=== PATIENT | female | born 1940 | race Caucasian/White ===

== ENCOUNTER → 2019-09-20 10:25 | Outpatient (BNVA) | payer MEDICARE, OTHER, SELFPAY | PROVIDERS: Family Provider Nurse Practitioner Family; PCP Nurse Practitioner Family; Visit Provider Family Medicine | DX: E11.9 Type 2 diabetes mellitus without complications (principal); E78.2 Mixed hyperlipidemia; I48.91 Unspecified atrial fibrillation; I48.20 Chronic atrial fibrillation, unspecified; E55.9 Vitamin D deficiency, unspecified; M81.0 Age-related osteoporosis without current pathological fracture; I10 Essential (primary) hypertension | CPT/HCPCS: 80053; 80061; 82044; 82306; 83036; 84443; 85025; 85610 ==

== ENCOUNTER → 2019-09-27 10:45 | Outpatient (BNVA) | payer MEDICARE, OTHER, SELFPAY | PROVIDERS: Family Provider Nurse Practitioner Family; PCP Nurse Practitioner Family; Visit Provider Nurse Practitioner Family | DX: I48.91 Unspecified atrial fibrillation (principal) | CPT/HCPCS: 85610 ==

== ENCOUNTER → 2019-10-12 10:30 | Outpatient (BNVA) | payer MEDICARE, OTHER, SELFPAY | PROVIDERS: PCP Family Medicine; Visit Provider Family Medicine | DX: I48.91 Unspecified atrial fibrillation (principal) | CPT/HCPCS: 85610 ==

== ENCOUNTER → 2019-11-17 10:27 | Outpatient (BNVA) | payer MEDICARE, OTHER, SELFPAY | PROVIDERS: Family Provider Nurse Practitioner Family; PCP Family Medicine; Visit Provider Internal Medicine Cardiovascular Disease | DX: I42.8 Other cardiomyopathies (principal); R06.02 Shortness of breath | CPT/HCPCS: 80048 ==

== ENCOUNTER → 2019-11-26 13:25 | Outpatient (BNVA) | payer MEDICARE, OTHER, SELFPAY | PROVIDERS: PCP Family Medicine; Visit Provider Family Medicine | DX: I48.91 Unspecified atrial fibrillation (principal) | CPT/HCPCS: 85610 ==

== ENCOUNTER → 2020-01-03 11:28 | Outpatient (BNVA) | payer MEDICARE, OTHER, SELFPAY | PROVIDERS: PCP Family Medicine; Visit Provider Family Medicine | DX: I48.91 Unspecified atrial fibrillation (principal) | CPT/HCPCS: 85610 ==

== ENCOUNTER → 2020-02-02 14:54 | Outpatient (BNVA) | payer MEDICARE, OTHER, SELFPAY | PROVIDERS: PCP Family Medicine; Visit Provider Family Medicine | DX: I48.11 Longstanding persistent atrial fibrillation (principal) | CPT/HCPCS: 85610 ==

== ENCOUNTER → 2020-03-01 10:14 | Outpatient (BNVA) | payer MEDICARE, OTHER, SELFPAY | PROVIDERS: PCP Family Medicine; Visit Provider Family Medicine | DX: E78.2 Mixed hyperlipidemia (principal); E11.9 Type 2 diabetes mellitus without complications; I48.11 Longstanding persistent atrial fibrillation; I10 Essential (primary) hypertension; E55.9 Vitamin D deficiency, unspecified | CPT/HCPCS: 80053; 80061; 82306; 83036; 84443; 85025; 85610 ==

== ENCOUNTER → 2020-04-05 14:12 | Outpatient (BNVA) | payer MEDICARE, OTHER, SELFPAY | PROVIDERS: PCP Family Medicine; Visit Provider Family Medicine | DX: I48.11 Longstanding persistent atrial fibrillation (principal) | CPT/HCPCS: 85610 ==

== ENCOUNTER → 2020-04-17 14:22 | Outpatient (BNVA) | payer MEDICARE, OTHER, SELFPAY | PROVIDERS: PCP Family Medicine; Visit Provider Family Medicine | DX: I48.11 Longstanding persistent atrial fibrillation (principal) | CPT/HCPCS: 85610 ==

== ENCOUNTER → 2020-05-31 15:01 | Outpatient (BNVA) | payer MEDICARE, OTHER, SELFPAY | PROVIDERS: PCP Family Medicine; Visit Provider Family Medicine | DX: I48.11 Longstanding persistent atrial fibrillation (principal) | CPT/HCPCS: 85610 ==

== ENCOUNTER → 2020-06-15 10:53 | Outpatient (BNVA) | payer MEDICARE, OTHER, SELFPAY | PROVIDERS: PCP Family Medicine; Visit Provider Internal Medicine Cardiovascular Disease | DX: I42.8 Other cardiomyopathies (principal); R06.02 Shortness of breath; I42.9 Cardiomyopathy, unspecified; I50.33 Acute on chronic diastolic (congestive) heart failure; I50.9 Heart failure, unspecified; I48.11 Longstanding persistent atrial fibrillation | CPT/HCPCS: 80048; 83880 ==

== ENCOUNTER → 2020-06-28 14:04 | Outpatient (BNVA) | payer MEDICARE, OTHER, SELFPAY | PROVIDERS: PCP Family Medicine; Visit Provider Family Medicine | DX: I48.11 Longstanding persistent atrial fibrillation (principal) | CPT/HCPCS: 85610 ==

== ENCOUNTER 2020-07-06 07:45 | Outpatient (CLI) | payer MEDICARE, OTHER, SELFPAY ==
--- NOTE | 2020-07-06 08:00 | USCV_ITS ---
Georgina Hunt Age: 79 Gender: F : 1940 Exam Date: 07/06/2020 07:44 Ordering Phys: Donald Hall MD ([email or web address]) Technologist: Hina Queen Exam Location: [facility] [place] Indication: CHF BP: 114 / 57 HR: 69 Rhythm: Sinus Technical Quality: Adequate MEASUREMENTS (Male / Female) Normal Values 2D ECHO LV Diastolic Diameter PLAX 3.9 cm 4.2 - 5.9 / 3.9 - 5.3 cm LV Systolic Diameter PLAX 3.2 cm LV Chamber Size 3.1 cm IVS Diastolic Thickness 1.2 cm 0.6 - 1.0 / 0.6 - 0.9 cm IVS Systolic Thickness 1.3 cm LVPW Diastolic Thickness 1.6 cm 0.6 - 1.0 / 0.6 - 0.9 cm LVPW Systolic Thickness 0.9 cm RV Chamber Size 3.1 cm LVOT Diameter 2.0 cm LV Ejection Fraction 2D Teich 40.5 % LV Ejection Fraction MOD 2C 33.6 % LV Ejection Fraction 2C AL 35.1 % LA Diameter 4.0 cm LA Width 4.4 cm LA Height 4.9 cm RA Width 3.4 cm RA Height 4.3 cm Aorta at Sinotubular Diameter 2.8 cm M-MODE LV Diastolic Diameter MM 4.9 cm 4.2 - 5.9 / 3.9 - 5.3 cm LV Systolic Diameter MM 2.4 cm LV Ejection Fraction MM Teich 81.7 % IVS Diastolic Thickness MM 1.2 cm 0.6 - 1.0 / 0.6 - 0.9 cm IVS Systolic Thickness MM 1.4 cm LVPW Diastolic Thickness MM 1.2 cm 0.6 - 1.0 / 0.6 - 0.9 cm LVPW Systolic Thickness MM 1.6 cm Aortic Annulus Diameter 2.8 cm LA Ao Ratio MM 1.6 MV E Point Septal Separation 0.7 cm DOPPLER AV Peak Velocity 146.0 cm/s LVOT Peak Velocity 108.0 cm/s AV Area Cont Eq vti 2.3 cm squared AV Area Cont Eq pk 2.3 cm squared MV Area PHT 2.4 cm squared Mitral E to A Ratio 0.6 MV E' Velocity 42.5 cm/s Mitral E to MV E' Ratio 5.2 Mitral E to LV E' Lateral Ratio 4.7 Mitral E to LV E' Septal Ratio 5.8 TR Peak Velocity 170.5 cm/s TR Peak Gradient 11.6 mmHg TV Peak E Velocity 69.0 cm/s Right Atrial Pressure 3.0 mmHg Pulmonary Artery Systolic Pressu 14.6 mmHg PV Peak Velocity 119.0 cm/s RV Acceleration Time 0.1 s RV Ejection Time 0.4 s RV AcT/ET 0.4 FINDINGS Left Ventricle Normal left ventricular size and systolic function, EF60 %. No regional wall motion abnormalities. Grade I/IV diastolic dysfunction (abnormal relaxation filling pattern), normal to mildly elevated filling pressures. Right Ventricle The right ventricle is normal in size and function. Right Atrium And well visualized Left Atrium Mildly increased left atrial size. Mitral Valve Mild mitral valve regurgitation. Aortic Valve Thickened aortic valve. Tricuspid Valve Trace tricuspid valve regurgitation. Pulmonic Valve Not well visualized Pericardium Normal pericardium without effusion. Aorta Normal ascending aorta dimension. CONCLUSIONS Normal left ventricular size and systolic function, EF60 %. No regional wall motion abnormalities. Grade I/IV diastolic dysfunction (abnormal relaxation filling pattern), normal to mildly elevated filling pressures. Mildly increased left atrial size. Thickened aortic valve. Mild mitral valve regurgitation. Trace tricuspid valve regurgitation. Estimated pulmonary artery peak systolic pressure of 15 mmHg there is no pericardial effusion. There are no intracardiac masses. Compared to the previous study from 04/06/2018, there is significant improvement of the LV ejection fraction Dr Donald Hall MD [facility] (Electronically Signed) Final Date: 06 July 2020 21:07 S
== END 2020-07-06 07:46 | disposition home or self-care (01) ==
LOC: US 07:46
PROVIDERS: PCP Family Medicine; Visit Provider Internal Medicine Cardiovascular Disease
DX: R06.02 Shortness of breath (principal); I50.9 Heart failure, unspecified; I08.3 Combined rheumatic disorders of mitral, aortic and tricuspid valves
CPT/HCPCS: 93306

== ENCOUNTER → 2020-07-24 15:07 | Outpatient (BNVA) | payer MEDICARE, OTHER, SELFPAY | PROVIDERS: PCP Family Medicine; Visit Provider Family Medicine | DX: I48.11 Longstanding persistent atrial fibrillation (principal) | CPT/HCPCS: 85610 ==

== ENCOUNTER → 2020-08-09 13:46 | Outpatient (BNVA) | payer MEDICARE, OTHER, SELFPAY | PROVIDERS: PCP Family Medicine; Visit Provider Family Medicine | DX: I48.11 Longstanding persistent atrial fibrillation (principal) | CPT/HCPCS: 85610 ==

== ENCOUNTER → 2020-08-17 09:54 | Outpatient (BNVA) | payer MEDICARE, OTHER, SELFPAY | PROVIDERS: PCP Family Medicine; Visit Provider Family Medicine | DX: I10 Essential (primary) hypertension (principal); E11.9 Type 2 diabetes mellitus without complications; Z79.84 Long term (current) use of oral hypoglycemic drugs; I48.11 Longstanding persistent atrial fibrillation; E55.9 Vitamin D deficiency, unspecified | CPT/HCPCS: 80053; 80061; 82306; 83036; 83721; 84443; 85025; 85610 ==

== ENCOUNTER → 2020-08-28 10:23 | Outpatient (BNVA) | payer MEDICARE, OTHER, SELFPAY | PROVIDERS: PCP Family Medicine; Visit Provider Family Medicine | DX: I48.11 Longstanding persistent atrial fibrillation (principal) | CPT/HCPCS: 85610 ==

== ENCOUNTER → 2020-09-05 10:33 | Outpatient (BNVA) | payer MEDICARE, OTHER, SELFPAY | PROVIDERS: PCP Family Medicine; Visit Provider Family Medicine | DX: I48.11 Longstanding persistent atrial fibrillation (principal) | CPT/HCPCS: 85610 ==

== ENCOUNTER → 2020-10-06 10:19 | Outpatient (BNVA) | payer MEDICARE, OTHER, SELFPAY | PROVIDERS: PCP Family Medicine; Visit Provider Family Medicine | DX: I48.11 Longstanding persistent atrial fibrillation (principal) | CPT/HCPCS: 85610 ==

== ENCOUNTER → 2020-10-30 11:44 | Outpatient (BNVA) | payer MEDICARE, OTHER, SELFPAY | PROVIDERS: PCP Family Medicine; Visit Provider Family Medicine | DX: I48.11 Longstanding persistent atrial fibrillation (principal) | CPT/HCPCS: 85610 ==

== ENCOUNTER → 2020-11-01 16:45 | Outpatient (BNVA) | payer MEDICARE, OTHER, SELFPAY | PROVIDERS: PCP Family Medicine; Visit Provider Family Medicine | DX: I48.11 Longstanding persistent atrial fibrillation (principal) | CPT/HCPCS: 85610 ==

== ENCOUNTER → 2020-11-08 10:15 | Outpatient (BNVA) | payer MEDICARE, OTHER, SELFPAY | PROVIDERS: PCP Family Medicine; Visit Provider Family Medicine | DX: I48.11 Longstanding persistent atrial fibrillation (principal) | CPT/HCPCS: 85610 ==

== ENCOUNTER → 2020-11-15 15:24 | Outpatient (BNVA) | payer MEDICARE, OTHER, SELFPAY | PROVIDERS: PCP Family Medicine; Visit Provider Family Medicine | DX: I48.11 Longstanding persistent atrial fibrillation (principal) | CPT/HCPCS: 85610 ==

== ENCOUNTER → 2020-11-27 09:23 | Outpatient (BNVA) | payer MEDICARE, OTHER, SELFPAY | PROVIDERS: PCP Family Medicine; Visit Provider Family Medicine | DX: Z79.84 Long term (current) use of oral hypoglycemic drugs (principal); I48.11 Longstanding persistent atrial fibrillation; E78.5 Hyperlipidemia, unspecified; I10 Essential (primary) hypertension; E11.9 Type 2 diabetes mellitus without complications; E55.9 Vitamin D deficiency, unspecified | CPT/HCPCS: 80053; 80061; 82306; 83036; 85025; 85610 ==

== ENCOUNTER → 2020-12-25 13:33 | Outpatient (BNVA) | payer MEDICARE, OTHER, SELFPAY | PROVIDERS: PCP Family Medicine; Visit Provider Family Medicine | DX: R30.0 Dysuria (principal) | CPT/HCPCS: 81000 ==

== ENCOUNTER → 2021-01-10 13:59 | Outpatient (BNVA) | payer MEDICARE, OTHER, SELFPAY | PROVIDERS: PCP Family Medicine; Visit Provider Family Medicine | DX: I48.11 Longstanding persistent atrial fibrillation (principal) | CPT/HCPCS: 85610 ==

== ENCOUNTER → 2021-01-17 10:30 | Outpatient (BNVA) | payer MEDICARE, OTHER, SELFPAY | PROVIDERS: PCP Family Medicine; Visit Provider Family Medicine | DX: I48.11 Longstanding persistent atrial fibrillation (principal) | CPT/HCPCS: 85610 ==

== ENCOUNTER → 2021-01-30 10:41 | Outpatient (BNVA) | payer MEDICARE, OTHER, SELFPAY | PROVIDERS: PCP Family Medicine; Visit Provider Family Medicine | DX: I48.11 Longstanding persistent atrial fibrillation (principal) | CPT/HCPCS: 85610 ==

== ENCOUNTER → 2021-02-27 11:45 | Outpatient (BNVA) | payer MEDICARE, OTHER, SELFPAY | PROVIDERS: PCP Family Medicine; Visit Provider Family Medicine | DX: Z20.822 Contact with and (suspected) exposure to COVID-19 (principal); J32.9 Chronic sinusitis, unspecified | CPT/HCPCS: 87635 ==

== ENCOUNTER 2021-03-02 15:21 | Emergency (ER) | payer MEDICARE, OTHER, SELFPAY ==
[2021-03-02 16:45] VITALS: BP 104/64; PULSE 61; RESP 15; TEMP 36.7; O2SAT 94; BMI 26.4
[2021-03-02 18:21] VITALS: BP 103/49; PULSE 63; RESP 18; O2SAT 95
--- NOTE | 2021-03-02 18:48 | XRR_ITS ---
PROCEDURE INFORMATION: Exam: XR Chest Exam date and time: 03/02/2021 6:48 PM Age: 80 years old Clinical indication: Shortness of breath; Additional info: SOB, covid+ TECHNIQUE: Imaging protocol: XR of the chest. Views: 1 view. COMPARISON: CR Chest 1 [place] [id number] 04/06/2018 1:43 AM FINDINGS: Lungs: Emphysematous changes. Mild pulmonary vascular congestion. Minimal mid lung field ground-glass airspace opacities may reflect an infectious process and/or pulmonary edema. Pleural spaces: Unremarkable. No pleural effusion. No pneumothorax. Heart/Mediastinum: Cardiomegaly. Bones/joints: Unremarkable. XR/XR chest 1V portable [id number] IMPRESSION: 1. Cardiomegaly. 2. Emphysematous changes. 3. Mild pulmonary vascular congestion. 4. Minimal mid lung field ground-glass airspace opacities may reflect an infectious process and/or pulmonary edema.
--- NOTE | 2021-03-02 19:02 | PC.NURSE ---
HAND OFF REPORT TO NIKITA MARTINEZ.
--- NOTE | 2021-03-02 19:02 | W.ED.COVID ---
HPI - COVID General: Chief Complaint: COVID symptoms Stated Complaint: COVID +, weakness Time Seen by Provider: 03/02/21 18:22 Source: patient Mode of arrival: ambulatory Limitations: no limitations Triage information: Has fever, cough or shortness of breath. Exposure to COVID + person last 14 days History of Present Illness: HPI Narrative: Patient is an 80-year-old female who symptoms for started 7 days ago. Symptoms include cough, shortness of breath, fever, and generalized body aches. Her symptoms are gradually worsening so she decided to come to the emergency department today. She states that she had a fever of 102 this morning and today the worst she has felt so far. She tested positive for Covid 3 days ago. MD complaint: known COVID positive Prior covid testing: yes, results known Prior testing date: 02/27/21 COVID 19 common symptoms: positive fever(s), chills, cough, dyspnea, body aches and headache(s) COVID 19 other sytmptoms: negative chest pain, pleuritic pain, requiring oxygen, requiring more oxygen, respiratory distress, cyanosis, lethargy, confusion, new neurological complaints or other concerning symptoms Onset (ago): day(s) (7) Severity: moderate Pertinent comorbid conditions: diabetes and hypertension Treatment prior to arrival: ibuprofen COVID Results: Nasal/Oral Coronavirus 2019 PCR Detected H 02/27/21 11:45 02/27/21 Review of Systems General: Reports: 10 or more systems reviewed and unremarkable except in HPI and below Const: Reports: fever(s), chills and body aches Card: Denies: chest pain Resp: Reports: dyspnea Neuro: Reports: headache(s); Denies: confusion PFS ED PFSH: Medical History Anticoagulated Atherosclerotic heart disease of [place] coronary artery without angina pectoris Atrial fibrillation Benign essential HTN Cerebral atherosclerosis Cholelithiasis Chronic diastolic heart failure Colon cancer Congestive heart failure due to cardiomyopathy Diabetes mellitus treated with oral medication Duodenal diverticulum Dyslipidemia Fatty liver Hair loss Hernia, paraesophageal Incarcerated hernia Left medial knee pain Leg cramp Mixed hyperlipidemia Non-ST elevation (NSTEMI) myocardial infarction Nonischemic cardiomyopathy Osteopenia of the elderly Post-menopausal Primary osteoarthritis of left knee Stress-induced cardiomyopathy Unspecified abdominal hernia without obstruction or gangrene Unsteady gait Vitamin D deficiency Surgical History History of colon resection S/P endoscopy Family History Other Diabetes Heart disease Hypertension Social History Smoking and tobacco status: never smoked Alcohol intake: never Lives independently: Yes Household members: none Marital status: / Physical Exam Const: COMMON NORMALS: no acute distress, average body habitus, patient oriented x3, no limitations, healthy appearing, alert and well nourished HENMT: COMMON NORMALS: normocephalic, atraumatic and moist oral mucous membranes HEAD & SCALP: normocephalic and atraumatic Eye: COMMON NORMALS: Equal, round and reactive pupils present, EOMs intact bilaterally, conjunctivae normal and no scleral icterus CONJUNCTIVA: Yes conjunctivae normal PUPIL: Yes Equal, round and reactive pupils present Neck/C-Spine: COMMON NORMALS: no meningeal signs and no JVD Resp: COMMON NORMALS: normal respiratory effort, No retractions, No use of accessory muscles, clear to auscultation bilaterally and percussion normal AUSCULTATION: clear to auscultation bilaterally PERCUSSION: percussion normal Cardio: COMMON NORMALS: no JVD, regular rate, regular rhythm, S1 normal heart sound present, S2 normal heart sound present, No gallops present (Cardio), No clicks present (Cardio), No murmurs present (Cardio), No rub (Cardio) and Peripheral pulses 2+ throughout RATE: regular rate RHYTHM: regular rhythm HEART SOUNDS: S1 normal heart sound present and S2 normal heart sound present PERIPHERAL PULSES: Peripheral pulses 2+ throughout GI: COMMON NORMALS: Normal to inspection, nondistended, normoactive bowel sounds present, Soft to palpation, non-tender, No hepatosplenomegaly present, no masses and no bruits PALPATION: Yes Soft to palpation and Yes No hepatosplenomegaly present Extremity: COMMON NORMALS: normal to inspection, full ROM, capillary refill normal, no calf tenderness and no pedal edema Neuro: COMMON NORMALS: patient oriented x3 SENSORIUM/ORIENTATION: Yes alert MENINGEAL SIGNS: Yes no meningeal signs Course ED course: I had multiple conversations with the patient's daughter informing her of my examination findings, the patient's lab findings as well as the decision to give the patient monoclonal antibodies. Also discussed with the patient who agreed to receive the monoclonal antibody infusions. The patient received Regeneron and was observed for an hour after it completed with no adverse effects. She did not become hypoxic during the event and all her vital signs remained normal. She is discharged home with no new orders and she is to monitor her oxygen saturations. Patient voiced understanding and is in agreement with the plan. Vital Signs: Vital signs: Vital Signs Temperature 100.1 F H 03/02/21 23:48 Pulse Rate 82 03/02/21 23:48 Respiratory Rate 18 03/02/21 23:48 Blood Pressure 143/82 03/02/21 23:48 Pulse Oximetry 95 03/02/21 23:48 MDM - COVID MDM Narrative: Medical decision making narrative: 80-year-old female patient who was recently diagnosed with COVID-19. Symptoms started 1 week ago and she got tested 3 days ago. She has not been hypoxic but has been running fevers and feeling weak and tired. In the emergency department today she was not hypoxic, not requiring oxygen and she meets criteria for monoclonal antibody infusion. She was given the monoclonal antibody infusion and discharged home after being observed for an appropriate amount of time with no adverse events. Medical Records: Attestation: I reviewed the patient's medical records. Lab Data: Attestation: I reviewed the patient's lab results. Labs: Lab Results 03/02/21 03/02/21 03/02/21 Range/Units 19:15 19:15 19:15 WBC 3.4 L (4.0-10.0) 10^3/ uL RBC 4.75 (4.1-5.3) 10^6/u L Hgb 12.9 (11.5-15.3) g/dL Hct 39.2 (37.0-47.0) % MCV 82.5 (81-99) fL MCH 27.2 L (28.0-34.0) pg MCHC 32.9 (30.0-36.0) g/dL RDW 14.4 (12.1-15.1) % Plt Count 109 L (130-400) 10^3/c mm MPV 10.8 H (7.4-10.4) fL Neut % (Auto) 72.7 % Lymph % (Auto) 22.6 % Bullitt % (Auto) 3.5 % Eos % (Auto) 0.0 % Baso % (Auto) 0.3 % Neut # (Auto) 2.47 (1.8-7.7) 10^3/u L Lymph # (Auto) 0.8 (0.8-4.8) 10^3/u L Bullitt # (Auto) 0.1 L (0.2-0.9) 10^3/u L Eos # (Auto) 0.0 (0.0-0.8) 10^3/u L Baso # (Auto) 0.0 (0.0-0.1) 10^3/u L Nucleated RBC % (a uto) 0 % Nucleated RBCs # 0.0 /100WBC D-Dimer 0.31 (0-0.59) ug/mIFE U Sodium 134 L (136-145) mmol/L Potassium 4.4 (3.5-5.1) mmol/L Chloride 99 (98-107) mmol/L Carbon Dioxide 23 (22-29) mmol/L Anion Gap 16.4 (5-19) BUN 24 H (8-23) mg/dL Creatinine 1.1 H (0.5-0.9) mg/dL GFR Calculation Not Reportable Glucose 178 H (65-115) mg/dL Calculated Osmolal ity 286 (285-295) mOsm/k g Lactic Acid (0.5-2.2) mmol/L Calcium 8.6 (8.5-10.5) mg/dL Ferritin 554 H (15-150) ng/mL Total Bilirubin 0.4 (0.15-1.2) mg/dL AST 32 (0-32) U/L ALT 14 (0-33) U/L Alkaline Phosphata se 45 (35-105) IU/L C-Reactive Protein 75.9 H (0.0-4.9) mg/L Total Protein 7.2 (6.6-8.7) g/dL Albumin 4.0 (3.5-5.2) g/dL Globulin 3.2 (1.3-4.6) g/dL Procalcitonin 0.15 (0-0.5) ng/mL 03/02/21 Range/Units 19:15 WBC (4.0-10.0) 10^3/ uL RBC (4.1-5.3) 10^6/u L Hgb (11.5-15.3) g/dL Hct (37.0-47.0) % MCV (81-99) fL MCH (28.0-34.0) pg MCHC (30.0-36.0) g/dL RDW (12.1-15.1) % Plt Count (130-400) 10^3/c mm MPV (7.4-10.4) fL Neut % (Auto) % Lymph % (Auto) % [place] % (Auto) % Eos % (Auto) % Baso % (Auto) % Neut # (Auto) (1.8-7.7) 10^3/u L Lymph # (Auto) (0.8-4.8) 10^3/u L [place] # (Auto) (0.2-0.9) 10^3/u L Eos # (Auto) (0.0-0.8) 10^3/u L Baso # (Auto) (0.0-0.1) 10^3/u L Nucleated RBC % (a uto) % Nucleated RBCs # /100WBC D-Dimer (0-0.59) ug/mIFE U Sodium (136-145) mmol/L Potassium (3.5-5.1) mmol/L Chloride (98-107) mmol/L Carbon Dioxide (22-29) mmol/L Anion Gap (5-19) BUN (8-23) mg/dL Creatinine (0.5-0.9) mg/dL GFR Calculation Glucose (65-115) mg/dL Calculated Osmolal ity (285-295) mOsm/k g Lactic Acid 1.2 (0.5-2.2) mmol/L Calcium (8.5-10.5) mg/dL Ferritin (15-150) ng/mL Total Bilirubin (0.15-1.2) mg/dL AST (0-32) U/L ALT (0-33) U/L Alkaline Phosphata se (35-105) IU/L C-Reactive Protein (0.0-4.9) mg/L Total Protein (6.6-8.7) g/dL Albumin (3.5-5.2) g/dL Globulin (1.3-4.6) g/dL Procalcitonin (0-0.5) ng/mL Imaging Data: CXR: Attestation: I personally reviewed and interpreted this imaging study as follows: Radiologist's impression: brenda [address] [id number] ReportSigned Patient: Georgina Hunt #: [id number]: 1940cct#:[id number]/Sex: 80 / FADM Date: 03/02/21Loc: ERRoom/Bed:Attending Dr: Ordering Provider/Ordering MD: Stas Ortega MD, [facility] [place] Date of Service: 03/02/21 Procedure(s): XR chest 1V portable [id number] Accession Number(s): [id number] Report Number: [id number] PROCEDURE INFORMATION: Exam: XR Chest Exam date and time: 03/02/2021 6:48 PM Age: 80 years old Clinical indication: Shortness of breath; Additional info: SOB, covid+ TECHNIQUE: Imaging protocol: XR of the chest. Views: 1 view. COMPARISON: CR Chest 1 [place] [id number] 04/06/2018 1:43 AM FINDINGS: Lungs: Emphysematous changes. Mild pulmonary vascular congestion. Minimal mid lung field ground-glass airspace opacities may reflect an infectious process and/or pulmonary edema. Pleural spaces: Unremarkable. No pleural effusion. No pneumothorax. Heart/Mediastinum: Cardiomegaly. Bones/joints: Unremarkable. XR/XR chest 1V portable [id number] IMPRESSION: 1. Cardiomegaly. 2. Emphysematous changes. 3. Mild pulmonary vascular congestion. 4. Minimal mid lung field ground-glass airspace opacities may reflect an infectious process and/or pulmonary edema. Dictated By:Fadi De Paz MDSigned By:Fadi De Paz MDSigned Date/Time:03/02/211925DD/ 23 COVID Results: Nasal/Oral Coronavirus 2019 PCR Detected H 02/27/21 11:45 02/27/21 Monoclonal Antibody Treatments Inclusion/Exclusion Criteria weight >/= 40 kg and + direct Sars-Cov-2 test less than 7-10 days ago age >/= 65 and has diabetes not requiring hospitalization and not requiring oxygen (if not chronically on oxygen) Patient education patient/family/caregiver received/reviewed fact sheet, Emergency Use Authorization/unapproved drug status discussed with patient/family/caregiver, alternatives to this treatment discussed with patient/family/caregiver, risks and benefits of medication reviewed with patient/family/caregiver, patient/family/caregiver given opportunity for questions, which were answered and patient consents to receiving Monoclonal Antibody Treatment Plan for treatment Meets criteria for Monoclonal Antibody infusion Ordering Monoclonal Antibody infusion for today Discharge Plan Discharge Patient Disposition: Home Clinical Impression: Pneumonia due to 2019 novel coronavirus Condition: Stable Prescriptions: Continued nitroglycerin [Nitrostat] 0.4 mg tablet, sublingual 0.4 mg SUBLINGUAL Q5M PRNRF: 0 aspirin [Adult Low Dose Aspirin] 81 mg tablet,delayed release (DR/EC) 81 mg PO ONCE RF: 0 biotin 1 mg capsule 1 mg PO ONCE RF: 0 fenofibrate 160 mg tablet 160 mg PO QDAY Qty: 90 RF: 2 metformin 500 mg tablet extended release 24hr 500 mg PO BID Qty: 120 RF: 1 rosuvastatin 5 mg tablet See Rx Instructions .ROUTE .COMPLEX Qty: 90 RF: 4 omeprazole 40 mg capsule,delayed release(DR/EC) See Rx Instructions .ROUTE .COMPLEX Qty: 90 RF: 4 carvedilol 6.25 mg tablet See Rx Instructions .ROUTE .COMPLEX Qty: 180 RF: 4 furosemide 20 mg tablet See Rx Instructions .ROUTE .COMPLEX Qty: 90 RF: 3 isosorbide mononitrate 60 mg tablet extended release 24 hr See Rx Instructions .ROUTE .COMPLEX Qty: 90 RF: 4 linagliptin [Tradjenta] 5 mg tablet See Rx Instructions .ROUTE .COMPLEX Qty: 90 RF: 1 lisinopril 2.5 mg tablet See Rx Instructions .ROUTE .COMPLEX Qty: 90 RF: 1 potassium chloride 10 mEq capsule, extended release See Rx Instructions .ROUTE .COMPLEX Qty: 90 RF: 1 ergocalciferol (vitamin D2) 1,250 mcg (50,000 unit) capsule See Rx Instructions .ROUTE .COMPLEX Qty: 12 RF: 0 Jardiance 10 mg tablet See Rx Instructions .ROUTE .COMPLEX Qty: 30 RF: 0 warfarin 2 mg tablet See Rx Instructions .ROUTE .COMPLEX Qty: 290 RF: 0 azithromycin 500 mg tablet 500 mg PO DAILY 5 Days Qty: 5 RF: 0 promethazine-DM 6.25-15 mg/5 mL syrup 5 ml PO Q6H PRN (Reason: cough) Qty: 118 RF: 0 Discharge Orders: Discharge ED (Routine); Ordered 03/02/21 Ordered By: Stas Ortega Referrals: Lucinda Fairbanks MD [Primary Care Provider] - 1-3 days Discharge Diet: Usual diet Discharge Activity: Resume usual activity Patient Instructions: Viral Pneumonia (ED) Activity Restrictions/Additional Instructions: Return for any new or worsening symptoms. Follow-up with your primary care provider within 3 days, via telemedicine. Continue to check your oxygen saturation levels. If it drops below 90% for sustained amount of time please return to be evaluated or seek emergency care. Drink plenty of fluids to keep well-hydrated. Continue your home medications. You received the Regeneron monoclonal antibody infusion which should help keep you out of the hospital and help prevent severe illness. Coding Level of Care Code ED Associate Quality Engineer for Manny Fwd Exam Comprehensive
[2021-03-02 19:27] LABS: Basophils % 0.3 %; Hematocrit 39.2 % (37.0-47.0); Hemoglobin 12.9 g/dL (11.5-15.3); Lymphocytes # 0.8 10^3/uL (0.8-4.8); Lymphocytes % 22.6 %; Mean Corpuscular HGB Conc 32.9 g/dL (30.0-36.0); Mean Corpuscular Hemoglobin 27.2 pg (28.0-34.0); Mean Corpuscular Volume 82.5 fL (81-99); Mean Platelet Volume 10.8 fL (7.4-10.4); Monocytes # 0.1 10^3/uL (0.2-0.9); Monocytes % 3.5 %; Neutrophils # 2.47 10^3/uL (1.8-7.7); Neutrophils % 72.7 %; Nucleated Red Blood Cells % 0 %; Platelet Count 109 10^3/cmm (130-400); Red Blood Count 4.75 10^6/uL (4.1-5.3); Red Cell Distribution Width 14.4 % (12.1-15.1); White Blood Count 3.4 10^3/uL (4.0-10.0)
[2021-03-02 19:39] LABS: Lactic Sepsis W/Reflex 1.2 mmol/L (0.5-2.2)
[2021-03-02 19:40] LABS: Alanine Aminotransferase 14 U/L (0-33); Alkaline Phosphatase 45 IU/L (35-105); Anion Gap 16.4 (5-19); Aspartate Amino Transferase 32 U/L (0-32); Blood Urea Nitrogen 24 mg/dL (8-23); C Reactive Protein 75.9 mg/L (0.0-4.9); Calcium 8.6 mg/dL (8.5-10.5); Carbon Dioxide 23 mmol/L (22-29); Chloride 99 mmol/L (98-107); Ferritin 554 ng/mL (15-150); Globulin 3.2 g/dL (1.3-4.6); Glucose 178 mg/dL (65-115); Osmolality Calculated 286 mOsm/kg (285-295); Potassium 4.4 mmol/L (3.5-5.1); Sodium 134 mmol/L (136-145); Total Bilirubin 0.4 mg/dL (0.15-1.2); Total Protein 7.2 g/dL (6.6-8.7)
[2021-03-02 19:47] LABS: Procalcitonin 0.15 ng/mL (0-0.5)
[2021-03-02 20:24] LABS: D Dimer 0.31 ug/mIFEU (0-0.59)
[2021-03-02 21:30] VITALS: BP 124/66; PULSE 65; RESP 16; TEMP 37; O2SAT 94
[2021-03-02 22:53] VITALS: BP 137/69; PULSE 74; RESP 18; TEMP 39.1; O2SAT 96
[2021-03-02 23:48] VITALS: BP 143/82; PULSE 82; RESP 18; TEMP 37.8; O2SAT 95
== END 2021-03-02 23:51 | disposition home or self-care (01) ==
PROVIDERS: Emergency Provider Family Medicine; PCP Family Medicine
DX: U07.1 COVID-19 (principal); J12.82 Pneumonia due to coronavirus disease 2019; Z79.01 Long term (current) use of anticoagulants; Z79.82 Long term (current) use of aspirin; Z79.84 Long term (current) use of oral hypoglycemic drugs; I11.0 Hypertensive heart disease with heart failure; I50.32 Chronic diastolic (congestive) heart failure; I25.10 Atherosclerotic heart disease of native coronary artery without angina pectoris; Z85.038 Personal history of other malignant neoplasm of large intestine; E11.9 Type 2 diabetes mellitus without complications; E78.5 Hyperlipidemia, unspecified; E78.2 Mixed hyperlipidemia; I25.2 Old myocardial infarction
CPT/HCPCS: 71045; 80053; 82728; 83605; 84145; 85025; 85378; 86140; 96365; 99284; J7050

== ENCOUNTER 2021-03-05 14:10 | Emergency (ER) | payer MEDICARE, OTHER, SELFPAY ==
[2021-03-05] VITALS (13 sets, daily range): BP systolic 94–127; BP diastolic 59–77; PULSE 62–93; RESP 16–23; TEMP 37.5; O2SAT 92–96; BMI 26.4
--- NOTE | 2021-03-05 14:58 | ECG_ITS ---
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 Measurements Intervals [place] Rate: 82 P: -42 ND: 257 QRS: -17 QRSD: 101 T: -18 QT: 406 QTc: 476 Interpretive Statements SINUS RHYTHM WITH FIRST DEGREE AV BLOCK ST DEVIATION AND MODERATE T-WAVE ABNORMALITY, CONSIDER ANTERIOR ISCHEMIA [-0.1+ mV T WAVE IN V3/V4] Compared to ECG 04/06/2018 08:44:01 Sinus arrhythmia no longer present Myocardial infarct finding no longer present T-wave abnormality still present Possible ischemia still present Electronically Signed On 03-05-2021 21:18:57 CDT by Donald Hall M.D. [email or web address]
--- NOTE | 2021-03-05 14:58 | XRR_ITS ---
PROCEDURE INFORMATION: Exam: XR Chest Exam date and time: 03/05/2021 2:58 PM Age: 80 years old Clinical indication: Pain; Cough and shortness of breath; Chest pressure; Patient HX: SOB coughing x 2 weeks, has covid; Additional info: Chest pain TECHNIQUE: Imaging protocol: XR of the chest. Views: 1 view. COMPARISON: CR (CHEST, ) 03/02/2021 6:52 PM FINDINGS: Lungs: Prominent, somewhat coarsened interstitial lung markings similar to comparison. No focal airspace consolidation. Pleural spaces: Unremarkable. No pleural effusion. No pneumothorax. Heart/Mediastinum: Mild cardiac silhouette enlargement. Contour stable from prior. Vasculature: Scattered atherosclerosis. Bones/joints: Demineralized bones without acute thoracic fracture. XR/XR chest 1V portable [id number] IMPRESSION: 1. No focal acute pulmonary disease. 2. No significant change from comparison.
--- NOTE | 2021-03-05 14:59 | ED_ITS ---
HPI - Chest Pain General: Chief Complaint: Chest Pain Stated Complaint: Sob, Chest pain Time Seen by Provider: 03/05/21 14:58 History of Present Illness: HPI narrative: 80-year-old female presents to the emergency room with complaints of sudden onset of chest pain this morning while at rest radiating to her back. She has a history of congestive heart failure and she took 40 of Lasix after that happened she denies any pain since then. She was diagnosed with Covid about 6 days ago she received monoclonal antibody infusion 3 days ago. She is on day 8 or 9 of symptoms at this point. She is not had any hemoptysis she is usually on Coumadin for atrial fibrillation which she has been taking regularly. MD complaint: chest pain Pertinent past history: other (Digestive heart failure) Onset (ago): hour(s) Timing of current episode: episodic Onset: during rest Pain location: substernal Pain radiation: back Severity: moderate Quality: sharp Relieving factors: nothing Exacerbating factors: nothing Context: other (Recently diagnosed with COVID-19) Associated symptoms: Reports no associated symptoms, abdominal pain, diaphoresis, dyspnea, fever(s), leg edema, nausea, palpitations, sense of impending doom, syncope and vomiting Treatment prior to arrival: other (Lasix 40 mg) Review of Systems Const: Reports: fever(s) and diaphoresis ENMT: Denies: throat pain, ear or mastoid pain, nasal discharge or nasal congestion Card: Reports: palpitations and syncope Resp: Reports: dyspnea GI: Reports: abdominal pain, nausea and vomiting : Denies: flank pain, difficulty voiding, dysuria, urinary frequency or urinary urgency Skin/Breast: Denies: rash or pruritus PFS ED PFSH: Medical History Anticoagulated Atherosclerotic heart disease of [place] coronary artery without angina pectoris Atrial fibrillation Benign essential HTN Cerebral atherosclerosis Cholelithiasis Chronic diastolic heart failure Colon cancer Congestive heart failure due to cardiomyopathy Diabetes mellitus treated with oral medication Duodenal diverticulum Dyslipidemia Fatty liver Hair loss Hernia, paraesophageal Incarcerated hernia Left medial knee pain Leg cramp Mixed hyperlipidemia Non-ST elevation (NSTEMI) myocardial infarction Nonischemic cardiomyopathy Osteopenia of the elderly Post-menopausal Primary osteoarthritis of left knee Stress-induced cardiomyopathy Unspecified abdominal hernia without obstruction or gangrene Unsteady gait Vitamin D deficiency Surgical History History of colon resection S/P endoscopy Family History Other Diabetes Heart disease Hypertension Social History Smoking and tobacco status: never smoked Alcohol intake: never Lives independently: Yes Household members: none Marital status: / Physical Exam 2 Const: COMMON NORMALS: no acute distress GENERAL APPEARANCE: cooperative and comfortable ORIENTATION/CONSCIOUSNESS: Yes awake, Yes oriented to person, Yes oriented to place and Yes oriented to time HENMT: COMMON NORMALS: normocephalic, atraumatic, hearing grossly normal bilaterally and external ears normal HEAD & SCALP: normocephalic and atraumatic EXTERNAL EAR: Yes external ears normal Neck/C-Spine: COMMON NORMALS: no JVD Lymph: LYMPHATIC: no lymphadenopathy noted and no lymphedema noted Resp: COMMON NORMALS: normal respiratory effort, No retractions, No use of accessory muscles and clear to auscultation bilaterally AUSCULTATION: clear to auscultation bilaterally Cardio: COMMON NORMALS: no JVD, regular rate, regular rhythm and No murmurs present (Cardio) RATE: regular rate RHYTHM: regular rhythm GI: COMMON NORMALS: Soft to palpation and No hepatosplenomegaly present AUSCULTATION: Yes normoactive bowel sounds PALPATION: Yes Soft to palpation, No Tenderness to palpation present (GI), No Guarding due to palpation present (GI) and Yes No hepatosplenomegaly present Extremity: COMMON NORMALS: normal to inspection, capillary refill normal, no clubbing, cyanosis or edema, no calf tenderness and no pedal edema Neuro: SENSORIUM/ORIENTATION: Yes oriented to person, Yes oriented to place and Yes oriented to time Skin: COMMON NORMALS: no rashes or lesions noted GENERAL SKIN EXAM: no rashes or lesions noted Course Vital Signs: Vital signs: Vital Signs Temperature 99.5 F 03/05/21 14:34 Pulse Rate 86 03/05/21 19:27 Respiratory Rate 18 03/05/21 19:27 Blood Pressure 127/77 03/05/21 18:30 Pulse Oximetry 96 03/05/21 19:27 MDM - Chest Pain MDM Narrative: Medical decision making narrative: No further chest pain her D- dimer is minimally elevated consistent with her known diagnosis of Covid. Her INR is partly anticoagulated but not a full therapeutic value. She denied having any further chest symptoms. Lab Data: Labs: Lab Results 03/05/21 03/05/21 03/05/21 Range/Units 15:30 15:30 15:30 WBC 4.9 (4.0-10.0) 10^3/ uL RBC 4.51 (4.1-5.3) 10^6/u L Hgb 12.2 (11.5-15.3) g/dL Hct 37.4 (37.0-47.0) % MCV 82.9 (81-99) fL MCH 27.1 L (28.0-34.0) pg MCHC 32.6 (30.0-36.0) g/dL RDW 14.5 (12.1-15.1) % Plt Count 174 (130-400) 10^3/c mm MPV 11.2 H (7.4-10.4) fL Neut % (Auto) 73.0 % Lymph % (Auto) 21.1 % [place] % (Auto) 3.9 % Eos % (Auto) 1.0 % Baso % (Auto) 0.2 % Neut # (Auto) 3.55 (1.8-7.7) 10^3/u L Lymph # (Auto) 1.0 (0.8-4.8) 10^3/u L [place] # (Auto) 0.2 (0.2-0.9) 10^3/u L Eos # (Auto) 0.1 (0.0-0.8) 10^3/u L Baso # (Auto) 0.0 (0.0-0.1) 10^3/u L Nucleated RBC % (a uto) 0 % Nucleated RBCs # 0.0 /100WBC PT (12.1-14.9) SECO NDS INR (0.8-1.2) D-Dimer (0-0.59) ug/mIFE U Sodium 138 (136-145) mmol/L Potassium 4.4 (3.5-5.1) mmol/L Chloride 103 (98-107) mmol/L Carbon Dioxide 20 L (22-29) mmol/L Anion Gap 19.4 H (5-19) BUN 30 H (8-23) mg/dL Creatinine 0.9 (0.5-0.9) mg/dL GFR Calculation Not Reportable Glucose 136 H (65-115) mg/dL Calculated Osmolal ity 294 (285-295) mOsm/k g Lactic Acid (0.5-2.2) mmol/L Calcium 9.1 (8.5-10.5) mg/dL Total Bilirubin 0.3 (0.15-1.2) mg/dL AST 33 H (0-32) U/L ALT 12 (0-33) U/L Alkaline Phosphata se 52 (35-105) IU/L Troponin T Baselin e 28 H (0-10) ng/L Troponin T 120 Min [place] (0-10) ng/L Delta Troponin T (0-10) ABS# C-Reactive Protein 95.2 H (0.0-4.9) mg/L Total Protein 6.5 L (6.6-8.7) g/dL Albumin 3.8 (3.5-5.2) g/dL Globulin 2.7 (1.3-4.6) g/dL 03/05/21 03/05/21 03/05/21 Range/Units 15:30 15:30 17:59 WBC (4.0-10.0) 10^3/ uL RBC (4.1-5.3) 10^6/u L Hgb (11.5-15.3) g/dL Hct (37.0-47.0) % MCV (81-99) fL MCH (28.0-34.0) pg MCHC (30.0-36.0) g/dL RDW (12.1-15.1) % Plt Count (130-400) 10^3/c mm MPV (7.4-10.4) fL Neut % (Auto) % Lymph % (Auto) % [place] % (Auto) % Eos % (Auto) % Baso % (Auto) % Neut # (Auto) (1.8-7.7) 10^3/u L Lymph # (Auto) (0.8-4.8) 10^3/u L [place] # (Auto) (0.2-0.9) 10^3/u L Eos # (Auto) (0.0-0.8) 10^3/u L Baso # (Auto) (0.0-0.1) 10^3/u L Nucleated RBC % (a uto) % Nucleated RBCs # /100WBC PT 20.00 H (12.1-14.9) SECO NDS INR 1.66 H (0.8-1.2) D-Dimer 0.68 H (0-0.59) ug/mIFE U Sodium (136-145) mmol/L Potassium (3.5-5.1) mmol/L Chloride (98-107) mmol/L Carbon Dioxide (22-29) mmol/L Anion Gap (5-19) BUN (8-23) mg/dL Creatinine (0.5-0.9) mg/dL GFR Calculation Glucose (65-115) mg/dL Calculated Osmolal ity (285-295) mOsm/k g Lactic Acid 1.8 (0.5-2.2) mmol/L Calcium (8.5-10.5) mg/dL Total Bilirubin (0.15-1.2) mg/dL AST (0-32) U/L ALT (0-33) U/L Alkaline Phosphata se (35-105) IU/L Troponin T Baselin e (0-10) ng/L Troponin T 120 Min [place] 24.74 H (0-10) ng/L Delta Troponin T -3.26 L (0-10) ABS# C-Reactive Protein (0.0-4.9) mg/L Total Protein (6.6-8.7) g/dL Albumin (3.5-5.2) g/dL Globulin (1.3-4.6) g/dL Discharge Plan Discharge Patient Disposition: Home Clinical Impression: Atypical chest pain, COVID-19 Condition: Stable Prescriptions: No Action nitroglycerin [Nitrostat] 0.4 mg tablet, sublingual 0.4 mg SUBLINGUAL Q5M PRN (Reason: Chest Pain) RF: 0 aspirin [Adult Low Dose Aspirin] 81 mg tablet,delayed release (DR/EC) 81 mg PO DAILY RF: 0 biotin 1 mg capsule 1 mg PO DAILY RF: 0 warfarin 2 mg tablet See Rx Instructions .ROUTE .COMPLEX Qty: 290 RF: 0 azithromycin 500 mg tablet 500 mg PO DAILY 5 Days Qty: 5 RF: 0 fenofibrate 160 mg tablet 160 mg PO DAILY Qty: 90 RF: 1 potassium chloride 10 mEq capsule, extended release 10 meq PO DAILY RF: 0 carvedilol 6.25 mg tablet 6.25 mg PO BID RF: 0 omeprazole 40 mg capsule,delayed release(DR/EC) 40 mg PO DAILY RF: 0 isosorbide mononitrate 60 mg tablet extended release 24 hr 60 mg PO DAILY RF: 0 furosemide 20 mg tablet 20 mg PO DAILY RF: 0 ergocalciferol (vitamin D2) 1,250 mcg (50,000 unit) capsule 1,250 mcg PO Q7D RF: 0 lisinopril 2.5 mg tablet 2.5 mg PO DAILY RF: 0 rosuvastatin 5 mg tablet 5 mg PO DAILY RF: 0 Tradjenta 5 mg tablet 5 mg PO DAILY RF: 0 Jardiance 10 mg tablet 10 mg PO DAILY RF: 0 zinc 1 tab PO DAILY RF: 0 Discharge Orders: Discharge ED (Routine); Ordered 03/05/21 Ordered By: Nando Quiñonez Referrals: Lucinda Fairbanks MD [Primary Care Provider] - Patient Instructions: Opioid Safety Coding Level of Care Code ED Commercial Construction Project Manager for Chg Fwd Exam Comprehensive
[2021-03-05 15:57] LABS: Basophils % 0.2 %; Eosinophils # 0.1 10^3/uL (0.0-0.8); Hematocrit 37.4 % (37.0-47.0); Hemoglobin 12.2 g/dL (11.5-15.3); INR 1.66 (0.8-1.2); Lymphocytes % 21.1 %; Mean Corpuscular HGB Conc 32.6 g/dL (30.0-36.0); Mean Corpuscular Hemoglobin 27.1 pg (28.0-34.0); Mean Corpuscular Volume 82.9 fL (81-99); Mean Platelet Volume 11.2 fL (7.4-10.4); Monocytes # 0.2 10^3/uL (0.2-0.9); Monocytes % 3.9 %; Neutrophils # 3.55 10^3/uL (1.8-7.7); Nucleated Red Blood Cells % 0 %; Platelet Count 174 10^3/cmm (130-400); Red Blood Count 4.51 10^6/uL (4.1-5.3); Red Cell Distribution Width 14.5 % (12.1-15.1); White Blood Count 4.9 10^3/uL (4.0-10.0)
[2021-03-05 15:59] LABS: D Dimer 0.68 ug/mIFEU (0-0.59)
[2021-03-05 16:26] LABS: Alanine Aminotransferase 12 U/L (0-33); Albumin Level 3.8 g/dL (3.5-5.2); Alkaline Phosphatase 52 IU/L (35-105); Anion Gap 19.4 (5-19); Aspartate Amino Transferase 33 U/L (0-32); Blood Urea Nitrogen 30 mg/dL (8-23); C Reactive Protein 95.2 mg/L (0.0-4.9); Calcium 9.1 mg/dL (8.5-10.5); Carbon Dioxide 20 mmol/L (22-29); Chloride 103 mmol/L (98-107); Globulin 2.7 g/dL (1.3-4.6); Glucose 136 mg/dL (65-115); Lactic Sepsis W/Reflex 1.8 mmol/L (0.5-2.2); Osmolality Calculated 294 mOsm/kg (285-295); Potassium 4.4 mmol/L (3.5-5.1); Sodium 138 mmol/L (136-145); Total Bilirubin 0.3 mg/dL (0.15-1.2); Total Protein 6.5 g/dL (6.6-8.7); Troponin(5th) Baseline 28 ng/L (0-10)
--- NOTE | 2021-03-05 16:58 | ECG_ITS ---
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 Measurements Intervals [place] Rate: 82 P: -42 AK: 297 QRS: -12 QRSD: 90 T: -18 QT: 392 QTc: 458 Interpretive Statements SINUS RHYTHM WITH FIRST DEGREE AV BLOCK INFERIOR MYOCARDIAL INFARCTION [40+ ms Q WAVE AND/OR ST/T ABNORMALITY IN II/aVF], OF INDETERMINATE AGE MODERATE T-WAVE ABNORMALITY, CONSIDER ANTERIOR ISCHEMIA [-0.1+ mV T WAVE IN V3/V4] Compared to ECG 03/05/2021 16:25:56 Myocardial infarct finding now present T-wave abnormality still present Possible ischemia still present Electronically Signed On 03-07-2021 0:42:48 CDT by Donald Hall M.D. [id number]
[2021-03-05 18:51] LABS: Troponin 5 2HR 24.74 ng/L (0-10)
[2021-03-05 18:53] LABS: Troponin 5 2HR Delta -3.26 ABS# (0-10)
== END 2021-03-05 19:29 | disposition home or self-care (01) ==
PROVIDERS: Emergency Provider Family Medicine; PCP Family Medicine
DX: R07.89 Other chest pain (principal); U07.1 COVID-19; Z79.01 Long term (current) use of anticoagulants; Z79.82 Long term (current) use of aspirin; I11.0 Hypertensive heart disease with heart failure; I50.32 Chronic diastolic (congestive) heart failure; Z85.038 Personal history of other malignant neoplasm of large intestine; E11.9 Type 2 diabetes mellitus without complications; E78.2 Mixed hyperlipidemia; I25.2 Old myocardial infarction
CPT/HCPCS: 36415; 71045; 80053; 83605; 84484; 85025; 85378; 85610; 86140; 93005; 99284

== ENCOUNTER → 2021-03-28 10:23 | Outpatient (BNVA) | payer MEDICARE, OTHER, SELFPAY | PROVIDERS: PCP Family Medicine; Visit Provider Internal Medicine Cardiovascular Disease | DX: I48.11 Longstanding persistent atrial fibrillation (principal) | CPT/HCPCS: 85610 ==

== ENCOUNTER → 2021-04-10 11:53 | Outpatient (BNVA) | payer MEDICARE, OTHER, SELFPAY | PROVIDERS: PCP Family Medicine; Visit Provider Family Medicine | DX: I48.11 Longstanding persistent atrial fibrillation (principal) | CPT/HCPCS: 85610 ==

== ENCOUNTER → 2021-04-26 11:46 | Outpatient (BNVA) | payer MEDICARE, OTHER, SELFPAY | PROVIDERS: PCP Family Medicine; Visit Provider Family Medicine | DX: I48.11 Longstanding persistent atrial fibrillation (principal) | CPT/HCPCS: 85610 ==

== ENCOUNTER → 2021-05-23 11:13 | Outpatient (BNVA) | payer MEDICARE, OTHER, SELFPAY | PROVIDERS: PCP Family Medicine; Visit Provider Internal Medicine | DX: I48.11 Longstanding persistent atrial fibrillation (principal); R79.1 Abnormal coagulation profile | CPT/HCPCS: 85610 ==

== ENCOUNTER → 2021-05-31 10:17 | Outpatient (BNVA) | payer MEDICARE, OTHER, SELFPAY | PROVIDERS: PCP Family Medicine; Visit Provider Family Medicine | DX: I48.11 Longstanding persistent atrial fibrillation (principal) | CPT/HCPCS: 85610 ==

== ENCOUNTER → 2021-06-07 14:00 | Outpatient (BNVA) | payer MEDICARE, OTHER, SELFPAY | PROVIDERS: PCP Family Medicine; Visit Provider Family Medicine | DX: I48.11 Longstanding persistent atrial fibrillation (principal) | CPT/HCPCS: 85610 ==

== ENCOUNTER → 2021-06-13 10:59 | Outpatient (BNVA) | payer MEDICARE, OTHER, SELFPAY | PROVIDERS: PCP Family Medicine; Visit Provider Family Medicine | DX: I48.11 Longstanding persistent atrial fibrillation (principal) | CPT/HCPCS: 85610 ==

== ENCOUNTER → 2021-06-20 12:14 | Outpatient (BNVA) | payer MEDICARE, OTHER, SELFPAY | PROVIDERS: PCP Family Medicine; Visit Provider Family Medicine | DX: I48.11 Longstanding persistent atrial fibrillation (principal) | CPT/HCPCS: 85610 ==

== ENCOUNTER → 2021-06-29 10:32 | Outpatient (BNVA) | payer MEDICARE, OTHER, SELFPAY | PROVIDERS: PCP Family Medicine; Visit Provider Family Medicine | DX: I48.11 Longstanding persistent atrial fibrillation (principal) | CPT/HCPCS: 85610 ==

== ENCOUNTER → 2021-11-02 12:15 | Day surgery (SDC) | payer MEDICARE, OTHER, SELFPAY ==
[2021-11-02 12:25] VITALS: TEMP 36.7
[2021-11-02 12:36] VITALS: BMI 26.6
[2021-11-02 12:45] VITALS: BP 121/75; PULSE 76; RESP 16; O2SAT 97
[2021-11-02 13:50] VITALS: BP 74/54; PULSE 80; RESP 16; TEMP 36.8; O2SAT 96
[2021-11-02 15:00] VITALS: BP 90/52; PULSE 81; RESP 16; TEMP 36.3; O2SAT 96
== END ==
PROVIDERS: PCP Family Medicine; Visit Provider Nurse Practitioner
DX: U07.1 COVID-19 (principal)
CPT/HCPCS: 96365

== ENCOUNTER → 2021-12-24 09:34 | Outpatient (BNVA) | payer MEDICARE, OTHER, SELFPAY | PROVIDERS: PCP Nurse Practitioner Family; Visit Provider Internal Medicine Cardiovascular Disease | DX: I11.0 Hypertensive heart disease with heart failure (principal); I50.32 Chronic diastolic (congestive) heart failure; I42.8 Other cardiomyopathies; E78.5 Hyperlipidemia, unspecified; I48.11 Longstanding persistent atrial fibrillation; Z79.01 Long term (current) use of anticoagulants; E78.2 Mixed hyperlipidemia; Z79.82 Long term (current) use of aspirin; R06.02 Shortness of breath | CPT/HCPCS: 36415; 80048; 83880; 99214 ==

== ENCOUNTER 2021-12-31 06:34 | Outpatient (CLI) | payer MEDICARE, OTHER, SELFPAY ==
--- NOTE | 2021-12-31 07:15 | USCV_ITS ---
Georgina Hunt Age: 81 Gender: F : 1940 Exam Date: 12/31/2021 07:26 Ordering Phys: Donald Hall MD ([email or web address]) Technologist: Conchita Calixto Exam Location: [facility] [place] Indication: SOB BP: 110 / 60 HR: 62 Rhythm: Sinus Technical Quality: Adequate MEASUREMENTS (Male / Female) Normal Values 2D ECHO LV Diastolic Diameter PLAX 4.6 cm 4.2 - 5.9 / 3.9 - 5.3 cm LV Systolic Diameter PLAX 2.5 cm LV Chamber Size 3.6 cm IVS Diastolic Thickness 1.1 cm 0.6 - 1.0 / 0.6 - 0.9 cm IVS Systolic Thickness 1.7 cm LVPW Diastolic Thickness 1.0 cm 0.6 - 1.0 / 0.6 - 0.9 cm LVPW Systolic Thickness 1.5 cm RV Chamber Size 3.5 cm LVOT Diameter 2.0 cm LV Ejection Fraction 2D Teich 75.7 % LV Ejection Fraction MOD 2C 63.8 % LV Ejection Fraction 2C AL 63.9 % LA Diameter 3.6 cm LA Width 3.3 cm LA Height 3.2 cm RA Width 3.7 cm RA Height 3.9 cm Aorta at Sinotubular Diameter 3.5 cm M-MODE Aortic Annulus Diameter 3.0 cm LA Ao Ratio MM 1.3 MV E Point Septal Separation 0.5 cm DOPPLER AV Peak Velocity 114.0 cm/s LVOT Peak Velocity 72.0 cm/s AV Area Cont Eq vti 2.1 cm squared AV Area Cont Eq pk 2.0 cm squared MV Area PHT 5.5 cm squared Mitral E to A Ratio 0.8 MV E' Velocity 48.5 cm/s Mitral E to MV E' Ratio 12.6 Mitral E to LV E' Lateral Ratio 11.6 Mitral E to LV E' Septal Ratio 13.7 TR Peak Velocity 204.3 cm/s TR Peak Gradient 16.7 mmHg TR Mean Velocity 157.7 cm/s TR Mean Gradient 11.1 mmHg TR Velocity Time Integral 65.7 cm TV Peak E Velocity 75.0 cm/s Right Atrial Pressure 3.0 mmHg Pulmonary Artery Systolic Pressu 19.7 mmHg PV Peak Velocity 60.0 cm/s RV Acceleration Time 0.2 s RV Ejection Time 0.4 s RV AcT/ET 0.5 FINDINGS Left Ventricle Normal left ventricular size and systolic function, EF 63 %. Mild left ventricular hypertrophy. Grade I/IV diastolic dysfunction (abnormal relaxation filling pattern), normal to mildly elevated filling pressures. Right Ventricle The right ventricle is normal in size and function. Right Atrium The right atrium is normal in size. Left Atrium The left atrium is normal in size. Mitral Valve Mild mitral annular calcification. Thickened mitral valve. Trace mitral valve regurgitation. Aortic Valve Thickened aortic valve. Tricuspid Valve Mild tricuspid valve regurgitation. Pulmonic Valve Trace pulmonary valve regurgitation. Pericardium Normal pericardium without effusion. Aorta Plaque seen in the ascending aorta. CONCLUSIONS Normal left ventricular size and systolic function, EF 63 %. Mild left ventricular hypertrophy. Grade I/IV diastolic dysfunction (abnormal relaxation filling pattern), normal to mildly elevated filling pressures. Mild mitral annular calcification. Thickened mitral valve. Trace mitral valve regurgitation. Thickened aortic valve. Mild tricuspid valve regurgitation. Trace pulmonary valve regurgitation. Estimated pulmonary artery peak systolic pressure of 20mmHg There is no pericardial effusion. There are no intracardiac masses. No similar previous study is available for comparison. Compared to the previous study from 07/06/2020, there may not be a significant change Dr Donald Hall MD [facility] (Electronically Signed) Final Date: 06 Jan 2022 19:48 S
== END 2021-12-31 06:35 | disposition home or self-care (01) ==
LOC: RAD 06:36
PROVIDERS: PCP Nurse Practitioner Family; Visit Provider Internal Medicine Cardiovascular Disease
DX: I42.9 Cardiomyopathy, unspecified (principal); I50.9 Heart failure, unspecified; R06.00 Dyspnea, unspecified
CPT/HCPCS: 93306

== ENCOUNTER → 2022-01-01 11:09 | Outpatient (BNVA) | payer MEDICARE, OTHER, SELFPAY | PROVIDERS: PCP Nurse Practitioner Family; Visit Provider Internal Medicine Cardiovascular Disease | DX: I42.8 Other cardiomyopathies (principal); I42.9 Cardiomyopathy, unspecified; I48.11 Longstanding persistent atrial fibrillation; I50.9 Heart failure, unspecified; E11.9 Type 2 diabetes mellitus without complications; E78.5 Hyperlipidemia, unspecified; I50.32 Chronic diastolic (congestive) heart failure; Z79.84 Long term (current) use of oral hypoglycemic drugs | CPT/HCPCS: 80048; 83880 ==

== ENCOUNTER → 2022-01-21 10:58 | Outpatient (BNVA) | payer MEDICARE, OTHER, SELFPAY | PROVIDERS: PCP Nurse Practitioner Family; Visit Provider Internal Medicine Cardiovascular Disease | DX: I42.9 Cardiomyopathy, unspecified (principal); I50.32 Chronic diastolic (congestive) heart failure; I50.9 Heart failure, unspecified; E11.9 Type 2 diabetes mellitus without complications; I10 Essential (primary) hypertension; Z79.84 Long term (current) use of oral hypoglycemic drugs | CPT/HCPCS: 80048; 83880 ==

== ENCOUNTER → 2022-01-28 13:57 | Outpatient (BNVA) | payer MEDICARE, OTHER, SELFPAY | PROVIDERS: PCP Nurse Practitioner Family; Visit Provider Internal Medicine Cardiovascular Disease | DX: I42.9 Cardiomyopathy, unspecified (principal); I50.32 Chronic diastolic (congestive) heart failure; I50.9 Heart failure, unspecified; E11.9 Type 2 diabetes mellitus without complications; Z79.84 Long term (current) use of oral hypoglycemic drugs; I42.8 Other cardiomyopathies; I48.11 Longstanding persistent atrial fibrillation; I48.91 Unspecified atrial fibrillation | CPT/HCPCS: 80048; 83880; 85610 ==

== ENCOUNTER 2022-06-21 11:40 | Outpatient (CLI) | payer MEDICARE, OTHER, SELFPAY ==
--- NOTE | 2022-06-21 11:55 | XR_ITS ---
WS: [id number] Left knee, 3 views, 06/21/2022 Clinical Data: OSTEOARTHRITIS OF LEFT KNEE Comparison: Left knee, 02/09/2019. Findings: No fractures or dislocations are seen. There is minimal narrowing of the medial and lateral joint com partments. The patella is intact. The soft tissues are unremarkable. Vascular calcification is present XR/XR knee LT 3V* [id number] Impression: Mild osteoarthritis of the left knee. Kellgren-Gene Classification: grade 1 (doubtful): doubtful joint space narr owing and possible osteophytic lipping
== END 2022-06-21 11:41 | disposition home or self-care (01) ==
LOC: RAD 11:45
PROVIDERS: PCP Nurse Practitioner Family; Visit Provider Nurse Practitioner Family
DX: M17.12 Unilateral primary osteoarthritis, left knee (principal)
CPT/HCPCS: 73562

== ENCOUNTER 2022-06-27 11:22 | Emergency (ER) | payer MEDICARE, OTHER, SELFPAY ==
[2022-06-27 11:29] VITALS: BP 159/86; PULSE 81; RESP 18; TEMP 36.6; O2SAT 94; BMI 26.4
[2022-06-27 11:31] VITALS: BP 159/78; PULSE 80; RESP 18; TEMP 36.6; O2SAT 94
--- NOTE | 2022-06-27 12:02 | XRR_ITS ---
PROCEDURE INFORMATION: Exam: XR Left Hip Exam date and time: 06/27/2022 12:11 PM Age: 81 years old Clinical indication: Hip pain; Left hip; Patient HX: PT heard a pop in her lt hip and has since had pain in her lt hip and lt knee. ; Additional info: Pain, HX of colon cancer TECHNIQUE: Imaging protocol: Radiologic exam of the Left hip. Views: 2 or 3 views hip with pelvis when performed. COMPARISON: CT abdomen pelvis w con* [id number] 12/20/2015 3:17 PM FINDINGS: Bones/joints: Mild degenerative changes within the hip including mild joint space narrowing and early osteophyte formation. No fracture. The trabecular stress markings normal. Soft tissues: Unremarkable. XR/XR hip LT 2-3V wo/w pel* [id number] IMPRESSION: Mild degenerative changes within the hip.
--- NOTE | 2022-06-27 12:02 | XRR_ITS ---
PROCEDURE INFORMATION: Exam: XR Left Knee Exam date and time: 06/27/2022 12:11 PM Age: 81 years old Clinical indication: Left; Patient HX: PT heard a pop in her lt hip and has since had pain in her lt hip and lt knee. ; Additional info: Pain, HX of colon cancer TECHNIQUE: Imaging protocol: Radiologic exam of the Left knee. Views: 3 views. COMPARISON: CR XR knee LT 3V* [id number] 06/21/2022 12:13 PM FINDINGS: Bones/joints: Mild degenerative changes within the medial compartment reflected as mild joint space narrowing. Mild patellofemoral degenerative changes. Soft tissues: Normal. XR/XR knee LT 3V* [id number] IMPRESSION: 1. Mild patellofemoral degenerative changes. 2. Mild degenerative changes most pronounced medially
--- NOTE | 2022-06-27 13:54 | ED_ITS ---
HPI - Extremity Problem General: Chief complaint: Extremity Injury, Lower Stated complaint: left hip/knee pain x 2 weeks Time Seen by Provider: 06/27/22 12:02 Source: patient Mode of arrival: ambulatory History of Present Illness: 81-year-old female presents emergency room complaining left hip and knee pain is been on for the last several weeks or more. Initially began when she got out of her car and twisted to painful sensation in her left knee. She has pain in her hip as well. She had it x- rayed and it was normal. Now she is having progressively worsening symptoms although there is no swelling of the joint. Patient presents today requesting an MRI of her knee. She is evidently seen her primary care doctor and they are making arrangements for it to be done as an outpatient but felt that because of the worsening it needed to be done emergently. No recent injury since the initial event 2 weeks ago. No trauma no falls. Patient is on Xarelto. She does states she had a little bit of a low-grade fever this morning and has had some dysuria recently. MD Complaint: joint pain (Left knee left hip) Onset (ago): week(s) (2) Pain Consistency: constant Location: left and knee (And hip) Radiation: none Relieving factors: nothing Exacerbating factors: nothing Associated symptoms: Reports arthralgias; Deny chest pain, fever(s) or rash Review of Systems Const: Denies: fever(s), chills, body aches, change in appetite, fatigue or malaise ENMT: Denies: throat pain, ear or mastoid pain, nasal discharge or nasal congestion Card: Denies: chest pain, edema, dyspnea on exertion or orthopnea Resp: Denies: dyspnea, productive cough or non-productive cough GI: Denies: abdominal pain, nausea, vomiting, hematemesis, coffee ground emesis, diarrhea, constipation, bloating, hematochezia or melena : Reports: difficulty voiding and dysuria; Denies: flank pain, urinary frequency or urinary urgency Skin/Breast: Denies: rash or pruritus PFSH ED PFSH: Medical History Anticoagulated Atherosclerotic heart disease of [place] coronary artery without angina pectoris Atrial fibrillation Benign essential HTN Cerebral atherosclerosis Cholelithiasis Chronic diastolic heart failure Colon cancer Congestive heart failure due to cardiomyopathy Diabetes mellitus treated with oral medication Duodenal diverticulum Dyslipidemia Fatty liver Hair loss Hernia, paraesophageal Incarcerated hernia Left medial knee pain Leg cramp Mixed hyperlipidemia Non-ST elevation (NSTEMI) myocardial infarction Nonischemic cardiomyopathy Osteopenia of the elderly Post-menopausal Primary osteoarthritis of left knee Stress-induced cardiomyopathy Unspecified abdominal hernia without obstruction or gangrene Unsteady gait Vitamin D deficiency Surgical History History of colon resection S/P endoscopy Family History Family/Other Bleeding disorder Clotting disorder Mother CAD (coronary artery disease) Cancer Brother Chronic kidney disease (CKD) Diabetes Sister Diabetes Other Heart disease Hypertension Denies family history of Dementia Suicide Anesthesia complication Lung disease Stroke Social History Smoking and tobacco status: never smoked Alcohol intake: never Lives independently: Yes Household members: none Marital status: / Physical Exam Const: GENERAL APPEARANCE: cooperative and comfortable ORIENTATION/CONSCIOUSNESS: Yes awake, Yes oriented to person, Yes oriented to place and Yes oriented to time HENMT: COMMON NORMALS: normocephalic, atraumatic, hearing grossly normal bilaterally, external ears normal, EAC's normal, TM's normal bilaterally, Normal nasal mucous membranes and turbinates present, moist oral mucous membranes and oropharynx normal HEAD & SCALP: normocephalic and atraumatic NOSE: Normal nasal mucous membranes and turbinates present EXTERNAL EAR: Yes external ears normal EXTERNAL AUDITORY CANAL: EAC's normal TYMPANIC MEMBRANE: TM's norm al bilaterally Eye: COMMON NORMALS: Equal, round and reactive pupils present, EOMs intact bilaterally, conjunctivae normal and no scleral icterus CONJUNCTIVA: Yes conjunctivae normal PUPIL: Yes Equal, round and reactive pupils present Neck/C-Spine: COMMON NORMALS: full ROM, no lymphadenopathy, supple and no JVD Lymph: LYMPHATIC: no lymphadenopathy noted and no lymphedema noted Resp: COMMON NORMALS: normal respiratory effort, No retractions, No use of accessory muscles and clear to auscultation bilaterally AUSCULTATION: clear to auscultation bilaterally Cardio: COMMON NORMALS: no JVD, regular rate, regular rhythm and No murmurs present (Cardio) RATE: regular rate RHYTHM: regular rhythm GI: COMMON NORMALS: Soft to palpation and No hepatosplenomegaly present AUSCULTATION: Yes normoactive bowel sounds PALPATION: Yes Soft to palpation, No Tenderness to palpation present (GI), No Guarding due to palpation present (GI) and Yes No hepatosplenomegaly present Extremity: COMMON NORMALS: normal to inspection, capillary refill normal, no clubbing, cyanosis or edema, no calf tenderness and no pedal edema Neuro: SENSORIUM/ORIENTATION: Yes oriented to person, Yes oriented to place and Yes oriented to time Skin: COMMON NORMALS: no rashes or lesions noted GENERAL SKIN EXAM: no rashes or lesions noted Course Vital Signs: Vital signs: Vital Signs Temperature 98 F 06/27/22 11:31 Pulse Rate 75 06/27/22 17:02 Respiratory Rate 18 06/27/22 11:31 Blood Pressure 153/86 06/27/22 17:02 Pulse Oximetry 93 06/27/22 17:02 Oxygen Delivery Me thod 06/27/22 15:31 MDM - Extremity (Nontraumatic) Medical Decision Making X-ray of the knee shows some degenerative changes, mild. There is no evidence of swelling leg no evidence of a cellulitis on exam there is no suggestion of DVT. Ligaments are intact. Recommend follow-up with primary care for her knee can use anti-inflammatories as needed. Additionally she does have a cystitis. We will put her on Cipro and culture the urine. There is no evidence of pyelonephritis and she is afebrile at this time. If symptoms worsen recheck. Medical Records I reviewed the patient's medical records. Lab Data I reviewed the patient's lab results. Radiology Impressions Hip/Pelvis X-Ray 06/27/22 12:02 IMPRESSION: Mild degenerative changes within the hip. Knee X-Ray 06/27/22 12:02 IMPRESSION: 1. Mild patellofemoral degenerative changes. 2. Mild degenerative changes most pronounced medially Laboratory Results Urine Color Yellow (Yellow) 06/27/22 15:10 Urine Appearance Hazy (CLEAR) A 06/27/22 15:10 Urine pH 6 (5-7) 06/27/22 15:10 Ur Specific [place] 1.020 (1.005-1.030) 06/27/22 15:10 Urine Protein 1+ (Negative) H 06/27/22 15:10 Urine Glucose (UA) Trace (Normal) H 06/27/22 15:10 Urine Ketones Negative (Negative) 06/27/22 15:10 Urine Blood 3+ (Negative) H 06/27/22 15:10 Urine Nitrate Negative (Negative) 06/27/22 15:10 Urine Bilirubin Neg (Negative) 06/27/22 15:10 Urine Urobilinogen Norm mg/dL (Negative) 06/27/22 15:10 Ur Leukocyte Esterase 2+ (Negative) H 06/27/22 15:10 Urine RBC Too numerous to cnt /hpf (0-2) H 06/27/22 15:10 Urine WBC Too numerous to cnt /hpf (0-5) H 06/27/22 15:10 Ur Squamous Epith Cells 0-4 /hpf (0-5) H 06/27/22 15:10 Amorphous Sediment Not Reportable 06/27/22 15:10 Urine Bacteria 1+ /hpf (NONE) H 06/27/22 15:10 Discharge Plan Discharge Patient Disposition: Home Clinical Impression: Knee joint pain, Cystitis Condition: Stable Prescriptions: New Cipro 500 mg tablet 500 mg PO BID Qty: 14 0RF No Action nitroglycerin [Nitrostat] 0.4 mg tablet, sublingual 0.4 mg SUBLINGUAL Q5M PRN (Reason: Chest Pain) aspirin [Adult Low Dose Aspirin] 81 mg tablet,delayed release (DR/EC) 81 mg PO DAILY biotin 1 mg capsule 1 mg PO DAILY furosemide 20 mg tablet 20 mg PO DIRECTED Qty: 100 3RF Rx Instructions: 2 tabs daily on Mon, Wed, Fri and 1 tab daily all other days potassium chloride 10 mEq capsule, extended release 10 meq PO DIRECTED Qty: 100 3RF Rx Instructions: Take 2 tabs daily on Mon, Wed, Fri, then 1 tab daily all other days Xarelto 20 mg tablet 20 mg PO DAILY Qty: 100 3RF Zinc Natural 100 mg Tablet 100 mg PO DAILY magnesium 200 mg Tablet 200 mg PO DAILY carvedilol 6.25 mg tablet 6.25 mg PO BID omeprazole 40 mg capsule,delayed release(DR/EC) 40 mg PO DAILY isosorbide mononitrate 60 mg tablet extended release 24 hr 60 mg PO DAILY ergocalciferol (vitamin D2) 1,250 mcg (50,000 unit) capsule 1,250 mcg PO Q7D lisinopril 2.5 mg tablet 2.5 mg PO DAILY rosuvastatin 5 mg tablet 5 mg PO DAILY fenofibrate 160 mg tablet 160 mg PO DAILY Tradjenta 5 mg tablet 5 mg PO DAILY tramadol 50 mg tablet 50 mg PO Q4H Discharge Orders: Discharge ED (Routine); Ordered 06/27/22 Ordered By: Nando Quiñonez Referrals: Gracia,JOSE Mcmanus [Primary Care Provider] - Discharge Diet: Usual diet Discharge Activity: Limit activity as instructed Patient Instructions: Opioid Safety, Pain Management Activity Restrictions/Additional Instructions: Nonweightbearing on the left knee. Wear the knee immobilizer and transfer with assist use wheelchair. Case management make arrangements for you to follow-up with orthopedics. Coding Level of Care Code ED Embossing Press Operator Molded Goods for Manny Hines Exam Comprehensive
[2022-06-27 15:16] LABS: Urine Appearance Hazy (CLEAR); Urine Color Yellow (Yellow)
[2022-06-27 15:17] LABS: Add Urine Microscopic? YES; Bilirubin Urine Neg (Negative); Blood Urine 3+ (Negative); Glucose Urine UA Trace (Normal); Ketones Urine Negative (Negative); Leukocyte Esterase Urine 2+ (Negative); Nitrate Urine Negative (Negative); Protein Urine 1+ (Negative); Urobilinogen Urine Norm (Negative); pH Urine 6 (5-7)
[2022-06-27 15:31] VITALS: BP 157/76; PULSE 89; O2SAT 96
[2022-06-27 15:34] LABS: Add Urine Culture? Yes; Bacteria Urine 1+ /hpf; RBC Urine TOO NUMEROUS TO CNT /hpf (0-2); Squamous Epithelial Cell Urine 0-4 /hpf (0-5); WBC Urine TOO NUMEROUS TO CNT /hpf (0-5)
[2022-06-27] MEDS: cefTRIAXone 1,000 MG in lidocaine 1% 2.1 ML 2.1 MG IM (16:17)
[2022-06-27 17:02] VITALS: BP 153/86; PULSE 75; O2SAT 93
--- NOTE | 2022-06-28 10:30 | DCPLANNER ---
Addendum entered by Darlene Wyatt 08/19/22 15:53: Patient had a follow up appointment scheduled with ortho - patient did attend appointment. Addendum entered by Darlene Wyatt 07/01/22 08:35: Patient has a follow up appointment scheduled for Saturday, July 02, 2022 at 10:[address] Gallagher at at ortho. Clinic will call patient with appointment information. Original Note: product management manager had message to schedule a follow up appointment for patient with ortho. product management manager sent patients information to the front office staff at ortho. Patients information will be printed and reviewed. Clinic will call patient with appointment information.
== END 2022-06-27 17:05 | disposition home or self-care (01) ==
PROVIDERS: Emergency Provider Family Medicine; PCP Nurse Practitioner Family
DX: M25.562 Pain in left knee (principal); N30.90 Cystitis, unspecified without hematuria; Z79.82 Long term (current) use of aspirin; I25.10 Atherosclerotic heart disease of native coronary artery without angina pectoris; I11.0 Hypertensive heart disease with heart failure; I50.9 Heart failure, unspecified; Z85.038 Personal history of other malignant neoplasm of large intestine; E11.9 Type 2 diabetes mellitus without complications; E78.2 Mixed hyperlipidemia; I25.2 Old myocardial infarction
CPT/HCPCS: 73502; 73562; 81001; 87086; 96372; 97161; 99284; J0696

== ENCOUNTER → 2022-07-02 09:48 | Outpatient (BNVA) | payer MEDICARE, OTHER, SELFPAY | PROVIDERS: PCP Nurse Practitioner Family; Visit Provider Orthopaedic Surgery | DX: M17.12 Unilateral primary osteoarthritis, left knee (principal) | CPT/HCPCS: 20610; 99203; J0702; J3490 ==

== ENCOUNTER 2022-07-10 06:00 | Outpatient (RCR) | payer MEDICARE, OTHER, SELFPAY | END 2022-08-07 23:59 | disposition home or self-care (01) | LOC: TPT 06:00 | PROVIDERS: PCP Nurse Practitioner Family; Visit Provider Orthopaedic Surgery | DX: M17.12 Unilateral primary osteoarthritis, left knee (principal) | CPT/HCPCS: 97110; 97116; 97163 ==

== ENCOUNTER → 2022-07-16 10:25 | Outpatient (BNVA) | payer MEDICARE, OTHER, SELFPAY | PROVIDERS: PCP Nurse Practitioner Family; Visit Provider Orthopaedic Surgery | DX: M25.562 Pain in left knee (principal) | CPT/HCPCS: 99213 ==

== ENCOUNTER 2022-08-04 12:26 | Emergency (ER) | payer MEDICARE, MEDICAID, SELFPAY ==
[2022-08-04] VITALS (14 sets, daily range): BP systolic 103–129; BP diastolic 61–84; PULSE 64–83; RESP 10–22; TEMP 37.2; O2SAT 88–98; BMI 25.4
--- NOTE | 2022-08-04 12:33 | ECG_ITS ---
[facility] Test Date: 2022-08-04 Pat Name: Georgina Hunt Department: Room: Gender: Female Bowl Attendant: : 1940 Requested By: Nando Oleary Order Number: [id number] Jaylin MD: Donald Hall M.D. Measurements Intervals [place] Rate: 70 P: 0 SD: 0 QRS: -2 QRSD: 94 T: -6 QT: 413 QTc: 447 Interpretive Statements Sinus rhythm with a frequent PACs sinus rhythm with a frequent PACs INCOMPLETE RIGHT BUNDLE BRANCH BLOCK [90+ ms QRS DURATION, TERMINAL R IN V1/V2, 40+ ms S IN I/aVL/V4/V5/V6] ST DEVIATION AND MODERATE T-WAVE ABNORMALITY, CONSIDER ANTEROLATERAL ISCHEMIA [-0.1+ mV T-WAVE IN V3-V6] INTERPRETATION BASED ON A DEFAULT AGE OF 40 YEARS Compared to ECG 03/05/2021 16:58:47 Incomplete right bundle-branch block now present Sinus rhythm no longer present First degree AV block no longer present Myocardial infarct finding no longer presentT-wave abnormality still present Possible ischemia still present Electronically Signed On 08-05-2022 14:18:00 ASSOCIATE PROFESSOR OF AUTOMATION by Donald Hall M.D. [id number]
--- NOTE | 2022-08-04 12:40 | ED_ITS ---
HPI - Chest Pain General: Chief Complaint: Chest Pain Stated Complaint: CHEST PAIN Time Seen by Provider: 08/04/22 12:39 Source: patient Mode of arrival: ambulatory History of Present Illness: 81-year-old female presents emergency room complaining of chest pain that began around 11:00 today an hour and half prior to arrival she was nauseated did not radiate into the neck arms or back she did take aspirin at home resolved for the most part at this time. She is on rivaroxaban. She is diabetic she is also on carvedilol and aspirin. She has not previously been having chest pain symptoms. MD complaint: chest pain Onset (ago): hour(s) Timing of current episode: episodic Prior episodes: No Onset: during rest Pain location: left chest Pain radiation: none Severity: mild Quality: tightness, aching and heaviness Relieving factors: nothing Exacerbating factors: nothing Associated symptoms: Deny abdominal pain, diaphoresis, dyspnea, fever(s), leg edema, nausea, palpitations, syncope or vomiting Treatment prior to arrival: aspirin Review of Systems Const: Denies: fever(s), chills, fatigue, malaise or diaphoresis ENMT: Denies: throat pain, ear or mastoid pain, nasal discharge or nasal congestion Card: Reports: chest pain; Denies: palpitations, irregular heart rhythm, edema or syncope Resp: Denies: dyspnea GI: Denies: abdominal pain, nausea or vomiting : Denies: flank pain, difficulty voiding, dysuria, urinary frequency or urinary urgency Skin/Breast: Denies: rash or pruritus PFSH ED PFSH: Medical History Anticoagulated Atherosclerotic heart disease of [place] coronary artery without angina pectoris Atrial fibrillation Benign essential HTN Cerebral atherosclerosis Cholelithiasis Chronic diastolic heart failure Colon cancer Congestive heart failure due to cardiomyopathy Diabetes mellitus treated with oral medication Duodenal diverticulum Dyslipidemia Fatty liver Hair loss Hernia, paraesophageal Incarcerated hernia Left medial knee pain Leg cramp Mixed hyperlipidemia Non-ST elevation (NSTEMI) myocardial infarction Nonischemic cardiomyopathy Osteopenia of the elderly Post-menopausal Primary osteoarthritis of left knee Stress-induced cardiomyopathy Unspecified abdominal hernia without obstruction or gangrene Unsteady gait Vitamin D deficiency Surgical History History of colon resection S/P endoscopy Family History Family/Other Bleeding disorder Clotting disorder Mother CAD (coronary artery disease) Cancer Brother Chronic kidney disease (CKD) Diabetes Sister Diabetes Other Heart disease Hypertension Denies family history of Dementia Suicide Anesthesia complication Lung disease Stroke Social History Smoking and tobacco status: never smoked Alcohol intake: never Lives independently: Yes Household members: none Marital status: / Physical Exam Const: GENERAL APPEARANCE: cooperative and comfortable ORIENTATION/CONSCIOUSNESS: Yes awake, Yes oriented to person, Yes oriented to place and Yes oriented to time HENMT: COMMON NORMALS: normocephalic, atraumatic and hearing grossly normal bilaterally HEAD & SCALP: normocephalic and atraumatic Resp: COMMON NORMALS: normal respiratory effort, No retractions, No use of accessory muscles and clear to auscultation bilaterally AUSCULTATION: clear to auscultation bilaterally Cardio: COMMON NORMALS: regular rate, regular rhythm and No murmurs present (Cardio) RATE: regular rate RHYTHM: regular rhythm GI: COMMON NORMALS: Soft to palpation and No hepatosplenomegaly present AUSCULTATION: Yes normoactive bowel sounds PALPATION: Yes Soft to palpation, No Tenderness to palpation present (GI), No Guarding due to palpation present (GI) and Yes No hepatosplenomegaly present Extremity: COMMON NORMALS: normal to inspection, capillary refill normal, no clubbing, cyanosis or edema, no calf tenderness and no pedal edema Neuro: SENSORIUM/ORIENTATION: Yes oriented to person, Yes oriented to place and Yes oriented to time Skin: COMMON NORMALS: no rashes or lesions noted GENERAL SKIN EXAM: no rashes or lesions noted Course Vital Signs: Vital signs: Vital Signs Temperature 98.9 F 08/04/22 12:34 Pulse Rate 75 08/04/22 18:37 Respiratory Rate 17 08/04/22 18:37 Blood Pressure 129/84 08/04/22 18:37 Pulse Oximetry 93 08/04/22 18:37 Oxygen Delivery Me thod 08/04/22 12:39 MDM - Chest Pain Medical Decision Making Blood pressure on the lower side. We will hold the lisinopril continue other medications including isosorbide. Set up for an outpatient Lexiscan sestamibi stress test follow-up with cardiology within the week. Return if she has further problems or recurrent chest pain Medical Records I reviewed the patient's medical records. Lab Data I reviewed the patient's lab results. 08/04/22 13:00 08/04/22 13:00 Radiology Impressions Chest X-Ray 08/04/22 12:40 IMPRESSION: No acute findings. Laboratory Results WBC 6.9 10^3/uL (4.0-10.0) 08/04/22 13:00 RBC 4.25 10^6/uL (4.1-5.3) 08/04/22 13:00 Hgb 11.7 g/dL (11.5-15.3) 08/04/22 13:00 Hct 37.1 % (37.0-47.0) 08/04/22 13:00 MCV 87.3 fl (81-99) 08/04/22 13:00 MCH 27.5 pg (28.0-34.0) L 08/04/22 13:00 MCHC 31.5 g/dL (30.0-36.0) 08/04/22 13:00 RDW 14.5 % (12.1-15.1) 08/04/22 13:00 Plt Count 178 10^3/cmm (130-400) 08/04/22 13:00 MPV 10.7 fL (7.4-10.4) H 08/04/22 13:00 Neut % (Auto) 72.6 % 08/04/22 13:00 Lymph % (Auto) 17.2 % 08/04/22 13:00 [place] % (Auto) 7.3 % 08/04/22 13:00 Eos % (Auto) 1.6 % 08/04/22 13:00 Baso % (Auto) 0.7 % 08/04/22 13:00 Neut # (Auto) 4.99 10^3/uL (1.8-7.7) 08/04/22 13:00 Lymph # (Auto) 1.2 10^3/uL (0.8-4.8) 08/04/22 13:00 [place] # (Auto) 0.5 10^3/uL (0.2-0.9) 08/04/22 13:00 Eos # (Auto) 0.1 10^3/uL (0.0-0.8) 08/04/22 13:00 Baso # (Auto) 0.1 10^3/uL (0.0-0.1) 08/04/22 13:00 Nucleated RBC % (auto) 0 % 08/04/22 13:00 Nucleated RBCs # 0.0 /100WBC 08/04/22 13:00 Sodium 134 mmol/L (136-145) L 08/04/22 13:00 Potassium 3.4 mmol/L (3.5-5.1) L 08/04/22 13:00 Chloride 100 mmol/L (98-107) 08/04/22 13:00 Carbon Dioxide 21 mmol/L (22-29) L 08/04/22 13:00 Anion Gap 16.4 (5-19) 08/04/22 13:00 BUN 17 mg/dL (8-23) 08/04/22 13:00 Creatinine 0.9 mg/dL (0.5-0.9) 08/04/22 13:00 GFR Calculation Not Reportable 08/04/22 13:00 Glucose 271 mg/dL (65-115) H 08/04/22 13:00 Calculated Osmolality 289 mOsm/kg (285-295) 08/04/22 13:00 Calcium 9.1 mg/dL (8.5-10.5) 08/04/22 13:00 Total Bilirubin 0.3 mg/dL (0.15-1.2) 08/04/22 13:00 AST 23 U/L (0-32) 08/04/22 13:00 ALT 12 U/L (0-33) 08/04/22 13:00 Alkaline Phosphatase 49 U/L (35-105) 08/04/22 13:00 Troponin T Baseline 21 ng/L (0-10) H 08/04/22 13:00 Troponin T 120 Minute 18.87 ng/L (0-10) H 08/04/22 15:56 Delta Troponin T -2.13 ABS# (0-10) L 08/04/22 15:56 Total Protein 6.4 g/dL (6.6-8.7) L 08/04/22 13:00 Albumin 3.9 g/dL (3.5-5.2) 08/04/22 13:00 Globulin 2.5 g/dL (1.3-4.6) 08/04/22 13:00 Urine Color Yellow (Yellow) 08/04/22 15:41 Urine Appearance Clear (CLEAR) 08/04/22 15:41 Urine pH 5 (5-7) 08/04/22 15:41 Ur Specific [place] 1.025 (1.005-1.030) 08/04/22 15:41 Urine Protein Neg (Negative) 08/04/22 15:41 Urine Glucose (UA) 2+ (Normal) H 08/04/22 15:41 Urine Ketones Negative (Negative) 08/04/22 15:41 Urine Blood Neg (Negative) 08/04/22 15:41 Urine Nitrate Negative (Negative) 08/04/22 15:41 Urine Bilirubin Neg (Negative) 08/04/22 15:41 Urine Urobilinogen Neg mg/dL (Negative) 08/04/22 15:41 Ur Leukocyte Esterase Negative (Negative) 08/04/22 15:41 Discharge Plan Discharge Patient Disposition: Home Clinical Impression: Atypical chest pain Condition: Stable Prescriptions: Held lisinopril 2.5 mg tablet 2.5 mg PO DAILY Hold Instructions: Resume on 08/09/22. No Action nitroglycerin [Nitrostat] 0.4 mg tablet, sublingual 0.4 mg SUBLINGUAL Q5M PRN (Reason: Chest Pain) aspirin [Adult Low Dose Aspirin] 81 mg tablet,delayed release (DR/EC) 81 mg PO DAILY biotin 1 mg capsule 1 mg PO DAILY furosemide 20 mg tablet 10 mg PO DAILY Qty: 100 3RF Hold Instructions: Resume on 08/09/22. Rx Instructions: if weight is increased 3# in 24 hours take a full tablet Xarelto 20 mg tablet 20 mg PO DAILY Qty: 100 3RF potassium chloride 10 mEq capsule, extended release See Rx Instructions .ROUTE .COMPLEX Qty: 90 0RF Dose Instruction: TAKE 2 CAPSULES DAILY ON FRIDAY, FRIDAY AND FRIDAY THEN TAKE 1 CAPSULE DAILY ALL OTHER DAYS OF THE WEEK Rx Instructions: TAKE 2 CAPSULES DAILY ON FRIDAY, FRIDAY AND FRIDAY THEN TAKE 1 CAPSULE DAILY ALL OTHER DAYS OF THE WEEK Zinc Natural 100 mg Tablet 100 mg PO DAILY magnesium 200 mg Tablet 200 mg PO DAILY carvedilol 6.25 mg tablet 6.25 mg PO BID omeprazole 40 mg capsule,delayed release(DR/EC) 40 mg PO DAILY isosorbide mononitrate 60 mg tablet extended release 24 hr 60 mg PO DAILY ergocalciferol (vitamin D2) 1,250 mcg (50,000 unit) capsule 1,250 mcg PO Q7D rosuvastatin 5 mg tablet 5 mg PO DAILY fenofibrate 160 mg tablet 160 mg PO DAILY Tradjenta 5 mg tablet 5 mg PO DAILY tramadol 50 mg tablet 50 mg PO Q4H Cipro 500 mg tablet 500 mg PO BID Qty: 14 0RF Discharge Orders: Discharge ED (Routine); Ordered 08/04/22 Ordered By: Nando Quiñonez Referrals: Gracia,JOSE Mcmanus [Primary Care Provider] - Discharge Diet: Usual diet Discharge Activity: Resume usual activity Patient Instructions: Opioid Safety, Pain Management Activity Restrictions/Additional Instructions: You were seen today for an episode of low blood pressure and chest discomfort. Recommend that for now he will hold Lasix and and lisinopril until you follow-up with Dr. Hall later this week continue your other medications. Coding Level of Care Code ED Machine Setter Automatic for [employer] Fwd Exam Detailed
--- NOTE | 2022-08-04 12:40 | XRR_ITS ---
PROCEDURE INFORMATION: Exam: XR Chest Exam date and time: 08/04/2022 1:46 PM Age: 81 years old Clinical indication: Pain; Angina pectoris; Additional info: Chest pain TECHNIQUE: Imaging protocol: Radiologic exam of the chest. Views: 1 view. COMPARISON: CR XR chest 1V portable [id number] 03/05/2021 3:03 PM FINDINGS: Lungs: Unremarkable. No consolidation. Pleural spaces: Unremarkable. No pleural effusion. No pneumothorax. Heart/Mediastinum: Cardiomegaly. Bones/joints: Unremarkable. Other findings: Stable paraesophageal hernia. XR/XR chest 1V portable [id number] IMPRESSION: No acute findings.
[2022-08-04 13:21] LABS: Basophils # 0.1 10^3/uL (0.0-0.1); Basophils % 0.7 %; Eosinophils # 0.1 10^3/uL (0.0-0.8); Eosinophils % 1.6 %; Hematocrit 37.1 % (37.0-47.0); Hemoglobin 11.7 g/dL (11.5-15.3); Lymphocytes # 1.2 10^3/uL (0.8-4.8); Lymphocytes % 17.2 %; Mean Corpuscular HGB Conc 31.5 g/dL (30.0-36.0); Mean Corpuscular Hemoglobin 27.5 pg (28.0-34.0); Mean Corpuscular Volume 87.3 fl (81-99); Mean Platelet Volume 10.7 fL (7.4-10.4); Monocytes # 0.5 10^3/uL (0.2-0.9); Monocytes % 7.3 %; Neutrophils # 4.99 10^3/uL (1.8-7.7); Neutrophils % 72.6 %; Nucleated Red Blood Cells % 0 %; Platelet Count 178 10^3/cmm (130-400); Red Blood Count 4.25 10^6/uL (4.1-5.3); Red Cell Distribution Width 14.5 % (12.1-15.1); White Blood Count 6.9 10^3/uL (4.0-10.0)
--- NOTE | 2022-08-04 13:30 | PC.NURSE ---
report given to Brad Torrez7
[2022-08-04 13:31] LABS: Troponin(5th) Baseline 21 ng/L (0-10)
[2022-08-04 13:38] LABS: Alanine Aminotransferase 12 U/L (0-33); Albumin Level 3.9 g/dL (3.5-5.2); Alkaline Phosphatase 49 U/L (35-105); Blood Urea Nitrogen 17 mg/dL (8-23); Calcium 9.1 mg/dL (8.5-10.5); Carbon Dioxide 21 mmol/L (22-29); Chloride 100 mmol/L (98-107); Globulin 2.5 g/dL (1.3-4.6); Glucose 271 mg/dL (65-115); Osmolality Calculated 289 mOsm/kg (285-295); Sodium 134 mmol/L (136-145); Total Bilirubin 0.3 mg/dL (0.15-1.2); Total Protein 6.4 g/dL (6.6-8.7)
[2022-08-04 13:45] LABS: Anion Gap 16.4 (5-19); Aspartate Amino Transferase 23 U/L (0-32); Potassium 3.4 mmol/L (3.5-5.1)
--- NOTE | 2022-08-04 14:40 | ECG_ITS ---
[facility] Test Date: 2022-08-04 Pat Name: Georgina Hunt Department: Room: Gender: Female Repairer Shoe Sticks: : 1940 Requested By: Nando Oleary Order Number: [id number] Jaylin MD: Donald Hall M.D. Measurements Intervals [place] Rate: 87 P: 0 VA: 0 QRS: -4 QRSD: 90 T: -36 QT: 407 QTc: 490 Interpretive Statements Sinus rhythm with a first-degree AV block. Frequent supraventricular ectopics LOW QRS VOLTAGE IN EXTREMITY LEADS [QRS DEFLECTION < 0.5 mV IN LIMB LEADS] POSSIBLE RIGHT VENTRICULAR CONDUCTION DELAY [RSR (QR) IN V1/V2] ST DEVIATION AND MODERATE T-WAVE ABNORMALITY, CONSIDER ANTEROLATERAL ISCHEMIA [-0.1+ mV T-WAVE IN V3-V6] Compared to ECG 08/04/2022 12:33:41 Low QRS voltage now present Incomplete right bundle-branch block no longer present T-wave abnormality still present Possible ischemia still present Electronically Signed On 08-06-2022 0:07:10 CLINICAL SERVICES DIRECTOR by Donald Hall M.D. [id number]
[2022-08-04 15:54] LABS: Add Urine Microscopic? NO; Charge for UA Resulting for Rev
[2022-08-04 16:03] LABS: Blood Urine Neg (Negative); Glucose Urine UA 2+ (Normal); Ketones Urine Negative (Negative); Nitrate Urine Negative (Negative); Protein Urine Neg (Negative); Specific Gravity, Urine 1.025 (1.005-1.030); Urine Appearance Clear (CLEAR); Urine Color Yellow (Yellow); pH Urine 5 (5-7)
[2022-08-04 16:04] LABS: Bilirubin Urine Neg (Negative); Leukocyte Esterase Urine Negative (Negative); Urobilinogen Urine Neg (Negative)
[2022-08-04 16:48] LABS: Troponin 5 2HR 18.87 ng/L (0-10)
[2022-08-04 16:57] LABS: Troponin 5 2HR Delta -2.13 ABS# (0-10)
== END 2022-08-04 18:38 | disposition home or self-care (01) ==
PROVIDERS: Emergency Provider Family Medicine; PCP Nurse Practitioner Family
DX: R07.89 Other chest pain (principal); I10 Essential (primary) hypertension; I25.10 Atherosclerotic heart disease of native coronary artery without angina pectoris; I48.91 Unspecified atrial fibrillation; E78.5 Hyperlipidemia, unspecified; E11.9 Type 2 diabetes mellitus without complications
CPT/HCPCS: 36415; 71045; 80053; 81003; 84484; 85025; 93005; 99285

== ENCOUNTER 2022-08-08 06:00 | Outpatient (RCR) | payer MEDICARE, OTHER, MEDICAID, SELFPAY | END 2022-09-04 23:59 | disposition home or self-care (01) | LOC: TPT 06:00 | PROVIDERS: PCP Nurse Practitioner Family; Visit Provider Orthopaedic Surgery | DX: M17.12 Unilateral primary osteoarthritis, left knee (principal) | CPT/HCPCS: 97110 ==

== ENCOUNTER → 2022-08-09 11:13 | Outpatient (BNVA) | payer MEDICARE, OTHER, SELFPAY | PROVIDERS: PCP Nurse Practitioner Family; Visit Provider Nurse Practitioner Family | DX: I50.9 Heart failure, unspecified (principal); I42.9 Cardiomyopathy, unspecified | CPT/HCPCS: 99214 ==

== ENCOUNTER 2022-08-14 08:23 | Outpatient (CLI) | payer MEDICARE, OTHER, SELFPAY ==
--- NOTE | 2022-08-14 08:45 | MR_ITS ---
WS: [id number] MRI LEFT KNEE NONCONTRAST TECHNIQUE: Axial PD, coronal PD fat sat, coronal PD, sagittal PD, and sagittal PD fat-sat images obta ined. CLINICAL INFORMATION: knee pain COMPARISON: None. FINDINGS: Distal quadriceps and patella tendons are intact. Normal ACL and PCL. Small suprapatellar effusion. T iny nondisplaced tibial plateau fractures involving the medial tibial plateau with 1 to 2 mm of depre ssion. Diffuse edema involving the tibial plateau and proximal metaphysis. Advanced chondromalacia patella. Subchondral edema involving the lateral patella facet. Medial and la teral collateral ligaments are intact. Normal popliteal fossa. Peripheral extrusion of the medial meniscus. Chronic thinning of the medial and lateral meniscus wors e medial joint compartment. Chronic intrasubstance signal abnormality involving the medial meniscus p osterior horn. MR/MR knee LT wo con* [id number] IMPRESSION: 1. Diffuse edema involving the tibial plateau worse in the lateral tibial plat eau with small visualized tibial plateau fractures. Small amount of depression measuring 1 to 2 mm. 2. Mild soft tissue edema about the medial joint line. 3. Normal ACL and PCL. 4. Peripheral extrusion of the medial meniscus with complete loss of the media l joint space. Chronic intrasubstance signal abnormality involving the medial m eniscus. 5. Advanced chondromalacia patella. Small amount of subchondral edema in the p atella. 6. Small suprapatellar effusion. Outbridge grading:
== END 2022-08-14 08:24 | disposition home or self-care (01) ==
LOC: RAD 08:23
PROVIDERS: PCP Nurse Practitioner Family; Visit Provider Orthopaedic Surgery
DX: R60.0 Localized edema (principal); M22.42 Chondromalacia patellae, left knee; M25.462 Effusion, left knee
CPT/HCPCS: 73721

== ENCOUNTER 2022-09-11 09:00 | Outpatient (CLI) | payer MEDICARE, OTHER, SELFPAY ==
[2022-09-11 09:25] VITALS: BMI 25.4
--- NOTE | 2022-09-11 09:36 | ECG_ITS ---
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 Interpretive Statements NAME OF STUDY: LEXISCAN SESTAMIBI STRESS TEST INDICATION: Chest Pain PROCEDURE: At the baseline, the blood pressure was 150/75 mm Hg with a heart rate of 52 bpm. The electrocardiogram showed sinus rhythm, normal axis. Possible old anterior OK. Non specfic ST-T wave changes.Low QRS voltage noted. ??? The Lexiscan was infused over a period of 20 seconds. A total of 0.4 milligrams of Lexiscan was infused. The stress phase was continued for a total of 5 minutes. Heart rate at the end of the stress phase was 66 bpm with a blood pressure of 190/96 mm Hg. The EKG at the peak infusion revealed sinus rhythm with frequent PAC's. No significant ST-T wave changes. The study was terminated due to protocol completion. ??? Sestamibi was injected 20 seconds after the Lexiscan infusion. ??? Blood pressure at the end of the recovery phase was 176/88 mm Hg with a heart rate of 67 beats per minute. ??? CONCLUSION: 1. No significant EKG changes with the LexiScan infusion. 2. No LexiScan induced chest pain or cardiac arrhythmia. 3. Normal blood pressure and heart rate response. 4. Sestamibi/sestamibi perfusion scan pending; see separate report. RESULTS TO ANANT BLACKMAN Electronically Signed On 09-15-2022 16:54:18 TRUCK DESPATCHER by Stephania Mcarthur M.D. [id number]
--- NOTE | 2022-09-11 09:37 | NMCV_ITS ---
NM jazmin perf SPECT r/s* [id number] Georgina Hunt Age: 81 Gender: F : 1940 Exam Date: 09/11/2022 09:37 Ordering Phys: Mary Aguirre Technologist: MARY ANN Sparrow Exam Location: [facility] Indications: HEART FAILURE STRESS TEST Please see separate stress test report in [facility] for full findings IMAGE PROTOCOL Rest/Stress 1 Lexiscan Day Radiopharmaceutical Dose (mCi) Administration Site Administered by Rest: Tc-99m 10.7 IV MARY ANN Cortes Sestamibi Stress:Tc-99m 32.3 IV MARY ANN Cortes Sestamibi Rest: 11-Sep-2022 60 Discovery 630 Stress: 11-Sep-2022 30 Discovery 630 0.4mg Lexiscan. Images obtained in supine and prone position. SPECT RESULTS Technical Quality: Excellent Raw Data Analysis: Normal Image Corrections: No attenuation or motion correction applied Summed Stress Score: 0 Summed Rest Score: 0 Summed Difference Score: 0 PERFUSION FINDINGS SPECT images demonstrate homogeneous tracer distribution throughout the myocardium. FUNCTIONAL RESULTS (calculated via Gated SPECT) Stress Image LV EF (%): 66 Stress EDV (mL):71 TID: 0.98 Stress ESV (mL):24 FUNCTIONAL FINDINGS: The left ventricle is normal in size. Transient Ischemia Dilatation of 0.98. The left ventricular ejection fraction is normal with a value of 66%. There is normal left ventricular wall thickening. IMPRESSIONS 1. Myocardial perfusion imaging is normal. 2. Overall left ventricular systolic function is normal without regional wall motion abnormalities, LVEF=66%. 3. EKG portion of the study will be reported separately. 4. Scan indicates low risk for cardiac events. Stephania Mcarthur MD (Electronically Signed) Final Date: 14 September 2022 10:37 S
[2022-09-11] MEDS: regadenoson 0.4 Mg/5 ml Syringe IVP (11:01)
[2022-09-11] MEDS: aminophylline 25 mg/mL SDV 10 mL IVP (11:13)
[2022-09-11 11:19] VITALS: BP 168/85; PULSE 68
== END 2022-09-11 09:01 | disposition home or self-care (01) ==
LOC: CDL 09:05
PROVIDERS: PCP Nurse Practitioner Family; Visit Provider Nurse Practitioner Family
DX: R06.02 Shortness of breath (principal); I20.9 Angina pectoris, unspecified; M25.562 Pain in left knee; I50.9 Heart failure, unspecified
CPT/HCPCS: 36415; 78452; 93017; 96374; 96375; 99213; A9500; J0280; J2785

== ENCOUNTER → 2022-12-05 11:41 | Outpatient (BNVA) | payer MEDICARE, OTHER, SELFPAY | PROVIDERS: PCP Nurse Practitioner Family; Visit Provider Internal Medicine Cardiovascular Disease | DX: R06.02 Shortness of breath (principal); I42.8 Other cardiomyopathies; I10 Essential (primary) hypertension; I48.11 Longstanding persistent atrial fibrillation; E78.2 Mixed hyperlipidemia | CPT/HCPCS: 80048; 83880; 99214 ==

== ENCOUNTER → 2023-06-19 10:01 | Outpatient (BNVA) | payer MEDICARE, OTHER, SELFPAY | PROVIDERS: PCP Nurse Practitioner Family; Visit Provider Internal Medicine Cardiovascular Disease | DX: I48.11 Longstanding persistent atrial fibrillation (principal); Z79.01 Long term (current) use of anticoagulants; I11.0 Hypertensive heart disease with heart failure; I50.32 Chronic diastolic (congestive) heart failure; E78.2 Mixed hyperlipidemia | CPT/HCPCS: 99214 ==

== ENCOUNTER → 2024-01-08 11:30 | Outpatient (BNVA) | payer MEDICARE, OTHER, SELFPAY | PROVIDERS: PCP Nurse Practitioner Family; Visit Provider Internal Medicine Cardiovascular Disease | DX: I48.11 Longstanding persistent atrial fibrillation (principal); I11.0 Hypertensive heart disease with heart failure; I50.32 Chronic diastolic (congestive) heart failure; E78.5 Hyperlipidemia, unspecified; Z79.01 Long term (current) use of anticoagulants | CPT/HCPCS: 99214 ==

== ENCOUNTER → 2024-07-19 11:16 | Outpatient (BNVA) | payer MEDICARE, OTHER, SELFPAY | PROVIDERS: PCP Nurse Practitioner Family; Visit Provider Internal Medicine Cardiovascular Disease | DX: I48.11 Longstanding persistent atrial fibrillation (principal); E78.2 Mixed hyperlipidemia; I11.0 Hypertensive heart disease with heart failure; I50.32 Chronic diastolic (congestive) heart failure; I42.8 Other cardiomyopathies | CPT/HCPCS: 36415; 80048; 83880; 99214 ==

== ENCOUNTER → 2024-10-26 08:52 | Outpatient (BNVA) | payer MEDICARE, OTHER, SELFPAY | PROVIDERS: PCP Nurse Practitioner Family; Visit Provider Nurse Practitioner Family | DX: I48.11 Longstanding persistent atrial fibrillation (principal); I11.0 Hypertensive heart disease with heart failure; I50.32 Chronic diastolic (congestive) heart failure; I42.8 Other cardiomyopathies; I48.91 Unspecified atrial fibrillation; E78.5 Hyperlipidemia, unspecified; Z79.01 Long term (current) use of anticoagulants | CPT/HCPCS: 99214 ==

== ENCOUNTER 2024-11-16 07:29 | Outpatient (CLI) | payer MEDICARE, OTHER, SELFPAY ==
--- NOTE | 2024-11-16 07:45 | USCV_ITS ---
Georgina Hunt Age: 84 Gender: F : 1940 Exam Date: 11/16/2024 08:11 Ordering Phys: Mary Aguirre Technologist: Exam Location: [facility] [place] Indication: Diastolic CHF BP: 150 / 90 HR: 71 Rhythm: Sinus Technical Quality: Adequate MEASUREMENTS (Male / Female) Normal Values 2D ECHO LV Diastolic Diameter PLAX 4.5 cm 4.2 - 5.9 / 3.9 - 5.3 cm IVS Diastolic Thickness 1.6 cm 0.6 - 1.0 / 0.6 - 0.9 cm IVS Systolic Thickness 1.9 cm LVPW Diastolic Thickness 1.1 cm 0.6 - 1.0 / 0.6 - 0.9 cm LVPW Systolic Thickness 1.5 cm LVOT Diameter 2.1 cm LV Ejection Fraction 2D Teich 57.9 % LV Ejection Fraction MOD 4C 57.7 % LV Ejection Fraction MOD 2C 67.7 % LV Ejection Fraction 2C AL 69.2 % LA Diameter 4.4 cm RA Systolic Volume 4C AL 42.0 ml RA Systolic Volume 4C MOD 40.5 ml Aorta at Sinotubular Diameter 2.9 cm M-MODE LA Ao Ratio MM 1.1 AV Cusp Separation MM 2.2 cm DOPPLER AV Peak Velocity 114.0 cm/s LVOT Peak Velocity 75.0 cm/s AV Area Cont Eq vti 2.7 cm squared AV Area Cont Eq pk 2.2 cm squared MV Peak Velocity 117.0 cm/s MV Area PHT 7.3 cm squared Mitral E to A Ratio 0.4 TV Peak Velocity 149.0 cm/s TR Peak Velocity 216.0 cm/s TR Peak Gradient 18.7 mmHg TV Peak E Velocity 88.0 cm/s PV Peak Velocity 98.0 cm/s FINDINGS Left Ventricle Normal left ventricular size, systolic function and wall thickness, with no regional wall motion abnormalities. Left ventricular ejection fraction is estimated at 60 %. Grade I/IV diastolic dysfunction (abnormal relaxation filling pattern), normal to mildly elevated filling pressures. Right Ventricle The right ventricle is normal in size and function. Right Atrium The right atrium is normal in size. Left Atrium Moderately increased left atrial size. Mitral Valve Structurally normal mitral valve without significant stenosis or prolapse. There is no mitral regurgitation. Aortic Valve Moderate aortic valve calcification. No aortic valve stenosis. Trace aortic valve regurgitation. Tricuspid Valve Structurally normal tricuspid valve without significant stenosis or regurgitation. Pulmonary artery systolic pressure is normal. Pulmonic Valve Structurally normal pulmonic valve without significant stenosis. There is no pulmonic regurgitation. Pericardium Normal pericardium without effusion. Aorta Normal ascending aorta dimension. IVC The inferior vena cava appears normal. CONCLUSIONS Normal left ventricular size, systolic function and wall thickness, with no regional wall motion abnormalities. Left ventricular ejection fraction is estimated at 60 %. Grade I/IV diastolic dysfunction (abnormal relaxation filling pattern), normal to mildly elevated filling pressures. Moderate aortic valve calcification. No aortic valve stenosis. Trace aortic valve regurgitation. There is no pericardial effusion. Right atrial pressure is around 5 mm of mercury. Hortencia Willams MD (Electronically Signed) Final Date: 25 November 2024 12:44 S
== END 2024-11-16 07:30 | disposition home or self-care (01) ==
LOC: RAD 07:29
PROVIDERS: PCP Nurse Practitioner Family; Visit Provider Nurse Practitioner Family
DX: I48.11 Longstanding persistent atrial fibrillation (principal); I10 Essential (primary) hypertension; I50.32 Chronic diastolic (congestive) heart failure; R93.1 Abnormal findings on diagnostic imaging of heart and coronary circulation; I51.7 Cardiomegaly; I35.8 Other nonrheumatic aortic valve disorders
CPT/HCPCS: 93306

== ENCOUNTER 2024-12-26 18:56 | Emergency (ER) | payer MEDICARE, OTHER, SELFPAY ==
--- NOTE | 2024-12-26 18:57 | XRR_ITS ---
PROCEDURE INFORMATION: Exam: XR Left Hip Exam date and time: 12/26/2024 7:21 PM Age: 84 years old Clinical indication: Hip pain and pelvic pain; Left hip; Lt hip/pelvic pain post fall today; Difficulty bearing weight TECHNIQUE: Imaging protocol: Radiologic exam of the left hip. Views: 2 or 3 views hip with pelvis when performed. COMPARISON: CR XR hip LT 2-3V wo/w pel* [id number] 06/27/2022 12:11 PM FINDINGS: Bones/joints: The bone density is decreased. No fracture. Bilateral hip joint space narrowing. Mild degenerative changes involve the sacroiliac joints. Soft tissues: Unremarkable. XR/XR hip LT 2-3V wo/w pel* [id number] IMPRESSION: Decreased bone density. No acute bony abnormality
[2024-12-26 19:05] VITALS: BP 177/80; PULSE 62; RESP 16; TEMP 36.6; O2SAT 96
--- NOTE | 2024-12-26 19:23 | W.ED.EXTPRO ---
HPI - Extremity Problem General: Chief complaint: Extremity Injury, Lower Stated complaint: Fell Left Hip Pain Time Seen by Provider: 12/26/24 19:03 Source: patient Mode of arrival: ambulatory Limitations: no limitations History of Present Illness: 84-year-old female states she was [place] [employer] this evening and fell onto her left side states her left hip she hit directly is been having left hip pain since then. States pain is a 6 out of 10 its much worse with movement states she is not able to really bear weight due to the pain she denies any other injuries denies hitting her head denies any neck pain she states she does have some slight left knee pain Associated symptoms: Deny chest pain, fever(s) or rash Related Data Home Medications ?Medication ?Instructions ?Recorded ?Confirmed aspirin 81 mg tablet,delayed 81 mg PO DAILY 09/06/19 10/26/24 release (Adult Low Dose Aspirin) biotin 1 mg capsule 1 mg PO DAILY 09/06/19 10/26/24 nitroglycerin 0.4 mg sublingual 0.4 mg sublingual Q5M PRN Chest 09/06/19 10/26/24 tablet (Nitrostat) Pain carvedilol 6.25 mg tablet 6.25 mg PO BID 06/27/22 10/26/24 ergocalciferol (vitamin D2) 1,250 1,250 mcg PO Q7D 06/27/22 10/26/24 mcg (50,000 unit) capsule fenofibrate 160 mg tablet 160 mg PO DAILY 06/27/22 10/26/24 isosorbide mononitrate 60 mg 60 mg PO DAILY 06/27/22 10/26/24 tablet,extended release 24 hr linagliptin 5 mg tablet (Tradjenta) 5 mg PO DAILY 06/27/22 10/26/24 magnesium 200 mg tablet 200 mg PO DAILY 06/27/22 10/26/24 tramadol 50 mg tablet 50 mg PO Q4H 06/27/22 10/26/24 rosuvastatin 10 mg tablet 10 mg PO DAILY 01/08/24 10/26/24 omeprazole 40 mg capsule,delayed 40 mg PO DAILY PRN 07/19/24 10/26/24 release potassium chloride 10 mEq See Rx Instructions .Route .COMPLEX 07/19/24 10/26/24 capsule,extended release glipizide 10 mg tablet, extended 10 mg PO DAILY 10/26/24 10/26/24 release 24 hr Previous Rx's ?Medication ?Instructions ?Recorded rivaroxaban 20 mg tablet (Xarelto) See Rx Instructions .Route 11/26/23 .COMPLEX #90 tabs furosemide 20 mg tablet 10 mg (1/2 x 20 mg) PO DAILY #100 06/14/24 tabs Allergies Allergy/AdvReac Type Severity Reaction Status Date / Time empagliflozin (From Allergy Mild ALGY-Rash Verified 12/26/24 19:08 Jardiance) Sulfa (Sulfonamide Allergy Unknown Verified 12/26/24 19:08 Antibiotics) Xwbhdqt-MXH-YmX Reductase AdvReac MYALGIAS Verified 12/26/24 19:08 Inhibitor (Ghxrydg-Lzi-Wwi Reductase Inhibitor) Review of Systems Const: Denies: fever(s), chills, body aches or change in appetite ENMT: Denies: throat pain or dental pain Card: Denies: chest pain Resp: Denies: dyspnea GI: Denies: abdominal pain, nausea, vomiting or diarrhea Musc: Reports: extremity pain; Denies: neck pain or back pain Skin/Breast: Denies: rash Neuro: Denies: headache(s) PFSH ED PFSH: Medical History Dyslipidemia Chronic diastolic heart failure Congestive heart failure due to cardiomyopathy Benign essential HTN Nonischemic cardiomyopathy Unspecified abdominal hernia without obstruction or gangrene Fatty liver Hernia, paraesophageal Unsteady gait Leg cramp Stress-induced cardiomyopathy Cholelithiasis Cerebral atherosclerosis Anticoagulated Atrial fibrillation Mixed hyperlipidemia Hair loss Incarcerated hernia Post-menopausal Osteopenia of the elderly Non-ST elevation (NSTEMI) myocardial infarction Primary osteoarthritis of left knee Left medial knee pain Atherosclerotic heart disease of [place] coronary artery without angina pectoris Vitamin D deficiency Diabetes mellitus treated with oral medication Duodenal diverticulum Colon cancer Surgical History History of colon resection S/P endoscopy Family History Family/Other Bleeding disorder Clotting disorder Mother CAD (coronary artery disease) Cancer Brother Chronic kidney disease (CKD) Diabetes Sister Diabetes Other Heart disease Hypertension Denies family history of Dementia Suicide Anesthesia complication Lung disease Stroke Social History Smoking and tobacco/nicotine status: never used tobacco/nicotine Alcohol intake: never Substance/Drug Use: never Lives independently: Yes Household members: none Marital status: / Physical Exam Const: COMMON NORMALS: no acute distress, patient oriented x3 and healthy appearing HENMT: COMMON NORMALS: normocephalic and atraumatic HEAD & SCALP: normocephalic and atraumatic Eye: COMMON NORMALS: conjunctivae normal CONJUNCTIVA: Yes conjunctivae normal Neck/C-Spine: COMMON NORMALS: full ROM and supple Chest: COMMONS NORMALS: normal inspection of the chest Resp: COMMON NORMALS: normal respiratory effort Cardio: COMMON NORMALS: regular rate RATE: regular rate Extremity: NARRATIVE EXTREMITY EXAM: Tenderness noted to left hip no obvious deformity Neuro: COMMON NORMALS: patient oriented x3, moves all extremities and no focal motor deficits Psych: COMMON NORMALS: mental status grossly normal, Normal thought process present and cooperative THOUGHT PROCESS: Normal thought process present Skin: COMMON NORMALS: no rashes or lesions noted and no wounds GENERAL SKIN EXAM: no rashes or lesions noted Course Vital Signs: Vital signs: Vital Signs Temperature 97.9 F 12/26/24 19:05 Pulse Rate 62 12/26/24 19:05 Respiratory Rate 16 12/26/24 19:05 Blood Pressure 177/80 12/26/24 19:05 Pulse Oximetry 96 12/26/24 19:05 Oxygen Delivery Me thod Room Air 12/26/24 19:05 MDM - Extremity (Nontraumatic) Medical Decision Making Patient presents for left hip contusion CT shows no fracture she is well-appearing here stable for discharge follow-up with PCP return if worsening. Medical Records I reviewed the patient's medical records. Lab Data Radiology Impressions Hip/Pelvis X-Ray 12/26/24 18:57 IMPRESSION: Decreased bone density. No acute bony abnormality Hip CT 12/26/24 19:29 IMPRESSION: No acute bony abnormality. Decreased bone density. Mild degenerative changes. Knee X-Ray 12/26/24 19:29 IMPRESSION: No acute findings. All radiology interpretation(s) finalized by discharge Discharge Plan Discharge Patient Disposition: Home Clinical Impression: Contusion of hip, left Condition: Stable Prescriptions: No Action nitroglycerin [Nitrostat] 0.4 mg tablet, sublingual 0.4 mg SUBLINGUAL Q5M PRN (Reason: Chest Pain) aspirin [Adult Low Dose Aspirin] 81 mg tablet,delayed release (DR/EC) 81 mg PO DAILY biotin 1 mg capsule 1 mg PO DAILY rosuvastatin 10 mg tablet 10 mg PO DAILY potassium chloride 10 mEq capsule, extended release See Rx Instructions .ROUTE .COMPLEX Dose Instruction: TAKE 2 CAPSULES DAILY ON FRIDAY, FRIDAY AND FRIDAY THEN TAKE 1 CAPSULE DAILY ALL OTHER DAYS OF THE WEEK Rx Instructions: TAKE 1 cap daily glipizide 10 mg tablet extended release 24hr 10 mg PO DAILY Xarelto 20 mg tablet See Rx Instructions .ROUTE .COMPLEX Qty: 90 3RF Dose Instruction: TAKE 1 TABLET EVERY DAY Rx Instructions: TAKE 1 TABLET EVERY DAY furosemide 20 mg tablet 10 mg PO DAILY Qty: 100 3RF Rx Instructions: if weight is increased 3# in 24 hours take a full tablet magnesium 200 mg Tablet 200 mg PO DAILY carvedilol 6.25 mg tablet 6.25 mg PO BID isosorbide mononitrate 60 mg tablet extended release 24 hr 60 mg PO DAILY ergocalciferol (vitamin D2) 1,250 mcg (50,000 unit) capsule 1,250 mcg PO Q7D fenofibrate 160 mg tablet 160 mg PO DAILY Tradjenta 5 mg tablet 5 mg PO DAILY tramadol 50 mg tablet 50 mg PO Q4H omeprazole 40 mg capsule,delayed release(DR/EC) 40 mg PO DAILY PRN Discharge Orders: Discharge ED (Routine); Ordered 12/26/24 Ordered By: Maru Sarkar Referrals: Marietta Gracia APN [Primary Care Provider] - 4-7 days Discharge Diet: Advance as tolerated Discharge Activity: Resume usual activity Patient Instructions: Hip Contusion (ED) Print Language: Singaporean Coding Level of Care Code ED Gang Saw Operator for Manny Hines
--- NOTE | 2024-12-26 19:29 | CTR_ITS ---
PROCEDURE INFORMATION: Exam: CT Left Lower Extremity Without Contrast, Hip Exam date and time: 12/26/2024 7:41 PM Age: 84 years old Clinical indication: Injury or trauma; Blunt trauma; Prior surgery; Surgery date: 6+ months; Surgery type: Colon resection; Patient sustained a fall landing onto left hip. C/O pain with difficulty bearing weight. TECHNIQUE: Imaging protocol: CT of the left lower extremity without contrast was performed. Exam focused on the hip. Radiation optimization: All CT scans at this facility use at least one of these dose optimization techniques: automated exposure control; mA and/or kV adjustment per patient size (includes targeted exams where dose is matched to clinical indication); or iterative reconstruction. COMPARISON: CR (PELVIS, ) 12/26/2024 7:21 PM RADIATION DOSE METRICS: Total DLP (mGy-cm): 287.19 FINDINGS: Bones/joints: The bone density is decreased. Left hip joint space narrowing. Negative exam for fracture Soft tissues: Normal. CT/CT hip LT wo con* [id number] IMPRESSION: No acute bony abnormality. Decreased bone density. Mild degenerative changes.
--- NOTE | 2024-12-26 19:29 | XRR_ITS ---
PROCEDURE INFORMATION: Exam: XR Left Knee Exam date and time: 12/26/2024 7:41 PM Age: 84 years old Clinical indication: Injury or trauma; Fall; Blunt trauma; Knee; Left TECHNIQUE: Imaging protocol: Radiologic exam of the left knee. Views: 3 views. COMPARISON: MR knee LT wo con* [id number] 08/14/2022 8:52 AM FINDINGS: Bones/joints: Normal. Soft tissues: Normal. XR/XR knee LT 3V* [id number] IMPRESSION: No acute findings.
[2024-12-26] MEDS: HYDROcodone-acetaminophen 5-325 mg Tablet 1 TAB PO (19:33)
[2024-12-26 20:11] VITALS: BP 183/98; PULSE 73; RESP 16; O2SAT 95
== END 2024-12-26 20:22 | disposition home or self-care (01) ==
PROVIDERS: Emergency Provider Emergency Medicine; PCP Nurse Practitioner Family
DX: S70.02XA Contusion of left hip, initial encounter (principal); Z79.82 Long term (current) use of aspirin; Z85.038 Personal history of other malignant neoplasm of large intestine; E11.9 Type 2 diabetes mellitus without complications; I25.10 Atherosclerotic heart disease of native coronary artery without angina pectoris; E78.2 Mixed hyperlipidemia; I11.0 Hypertensive heart disease with heart failure; I50.32 Chronic diastolic (congestive) heart failure; W19.XXXA Unspecified fall, initial encounter
CPT/HCPCS: 73502; 73562; 73700; 99284; J9999

== ENCOUNTER → 2025-05-11 09:51 | Outpatient (BNVA) | payer MEDICARE, OTHER, SELFPAY | PROVIDERS: PCP Nurse Practitioner Family; Visit Provider Internal Medicine Cardiovascular Disease | DX: I11.0 Hypertensive heart disease with heart failure (principal); I50.32 Chronic diastolic (congestive) heart failure; I48.91 Unspecified atrial fibrillation; Z79.01 Long term (current) use of anticoagulants; Z79.82 Long term (current) use of aspirin; E78.2 Mixed hyperlipidemia; I42.8 Other cardiomyopathies; I25.2 Old myocardial infarction | CPT/HCPCS: 99214 ==

== ENCOUNTER 2025-05-16 08:26 | Observation (INO) | payer MEDICARE, OTHER, SELFPAY ==
[2025-05-16] VITALS (12 sets, daily range): BP systolic 120–158; BP diastolic 61–100; PULSE 61–93; RESP 15–21; TEMP 36.7–37.1; O2SAT 94–98; BMI 29.5
--- NOTE | 2025-05-16 08:34 | ECG_ITS ---
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1940 Requested By: Nando Oleary Order Number: [id number] Reading MD: MELANIE LEMON Measurements Intervals Guy Rate: 74 P: 0 WI: 0 QRS: 7 QRSD: 92 T: -60 QT: 422 QTc: 469 Interpretive Statements Sinus Or Ectopic Atrial Bradycardia INDETERMINATE AXIS LOW QRS VOLTAGE IN EXTREMITY LEADS [QRS DEFLECTION < 0.5 mV IN LIMB LEADS] INCOMPLETE RIGHT BUNDLE BRANCH BLOCK [90+ ms QRS DURATION, TERMINAL R IN V1/V2, 40+ ms S IN I/aVL/V4/V5/V6] POSSIBLE ANTERIOR MYOCARDIAL INFARCTION , OF INDETERMINATE AGE [30 ms Q WAVE IN V3/V4, OR R < 0.2 mV IN V4] MODERATE T-WAVE ABNORMALITY, CONSIDER LATERAL ISCHEMIA [-0.1+ mV T-WAVE IN I/aVL/V5/V6] Compared to ECG 08/04/2022 14:44:33 There is no change Electronically Signed On 05-16-2025 10:45:07 CDT by MELANIE LEMON [id number]
--- NOTE | 2025-05-16 08:34 | XR_ITS ---
WS: [id number] Portable AP upright chest, 05/16/2025 Clinical Data: chest pain Comparison: Portable chest, 08/04/2022 Findings: No nodules, masses or effusions are seen. The heart is enlarged. The pulmonary vascularity is not increased. No pneumonia or pneumothorax is seen. The aortic arch and descending thoracic aorta show calcification and tortuosity. There is a hiatal hernia behind the heart. Monitor leads are on the chest wall. XR/XR chest 1V portable [id number] Impression: Cardiomegaly and atherosclerosis.
--- NOTE | 2025-05-16 08:34 | W.ED.CHESTPA ---
HPI - Chest Pain General: Chief Complaint: Chest Pain Stated Complaint: chest pain Time Seen by Provider: 05/16/25 08:29 History of Present Illness: 84-year-old female presents emergency room via EMS with a complaint of chest pain. Patient has a known history of coronary disease she woke up this morning states she felt fine initially. She began having chest comfort while at rest she took 3 sublingual nitros and called the ambulance chest pain is persisting when ambulance arrived she had 2 more and then an inch of Nitropaste was applied at the time she arrived here she states her chest symptoms are gone at most she has a little slight chest pressure as she describes it nothing similar to what she had earlier. Earlier the discomfort it radiated into her back and not into her neck or arms. Patient has a known history of coronary artery disease. Prior to this morning's episode no recent episodes of chest pain. Associated symptoms: Deny abdominal pain, dyspnea or fever(s) Related Data Home Medications ?Medication ?Instructions ?Recorded ?Confirmed aspirin 81 mg tablet,delayed 81 mg PO DAILY 09/06/19 05/16/25 release (Adult Low Dose Aspirin) nitroglycerin 0.4 mg sublingual 0.4 mg sublingual Q5M PRN Chest 09/06/19 05/16/25 tablet (Nitrostat) Pain ergocalciferol (vitamin D2) 1,250 1,250 mcg PO Q7D 06/27/22 05/16/25 mcg (50,000 unit) capsule fenofibrate 160 mg tablet 160 mg PO DAILY 06/27/22 05/16/25 isosorbide mononitrate 60 mg 60 mg PO DAILY 06/27/22 05/16/25 tablet,extended release 24 hr linagliptin 5 mg tablet (Tradjenta) 5 mg PO DAILY 06/27/22 05/16/25 magnesium 200 mg tablet 200 mg PO DAILY 06/27/22 05/16/25 rosuvastatin 10 mg tablet 10 mg PO DAILY 01/08/24 05/16/25 omeprazole 40 mg capsule,delayed 40 mg PO DAILY PRN stomach acid 07/19/24 05/16/25 release potassium chloride 10 mEq See Rx Instructions .Route .COMPLEX 07/19/24 05/16/25 capsule,extended release glipizide 10 mg tablet, extended 10 mg PO DAILY 10/26/24 05/16/25 release 24 hr amlodipine 2.5 mg tablet 2.5 mg PO DAILY 05/11/25 05/16/25 furosemide 40 mg tablet 20 mg PO DAILY 05/16/25 05/16/25 Previous Rx's ?Medication ?Instructions ?Recorded rivaroxaban 20 mg tablet (Xarelto) See Rx Instructions .Route 11/26/23 .COMPLEX #90 tabs Allergies Allergy/AdvReac Type Severity Reaction Status Date / Time empagliflozin (From Allergy Mild ALGY-Rash Verified 05/11/25 10:03 Jardiance) Sulfa (Sulfonamide Allergy Unknown Verified 05/11/25 10:03 Antibiotics) Zcjsbfl-BBS-UmB Reductase AdvReac MYALGIAS Verified 05/11/25 10:03 Inhibitor (Bioemnu-Bru-Rek Reductase Inhibitor) Review of Systems Const: Denies: fever(s) or chills Card: Reports: chest pain Resp: Denies: dyspnea GI: Denies: abdominal pain : Denies: dysuria, urinary frequency or urinary urgency Musc: Denies: neck pain or back pain Skin/Breast: Denies: rash PFSH ED PFSH: Medical History Dyslipidemia Chronic diastolic heart failure Congestive heart failure due to cardiomyopathy Benign essential HTN Nonischemic cardiomyopathy Unspecified abdominal hernia without obstruction or gangrene Fatty liver Hernia, paraesophageal Unsteady gait Leg cramp Stress-induced cardiomyopathy Cholelithiasis Cerebral atherosclerosis Anticoagulated Atrial fibrillation Mixed hyperlipidemia Hair loss Incarcerated hernia Post-menopausal Osteopenia of the elderly Non-ST elevation (NSTEMI) myocardial infarction Primary osteoarthritis of left knee Left medial knee pain Atherosclerotic heart disease of [place] coronary artery without angina pectoris Vitamin D deficiency Diabetes mellitus treated with oral medication Duodenal diverticulum Colon cancer Surgical History History of colon resection S/P endoscopy Family History Family/Other Bleeding disorder Clotting disorder Mother CAD (coronary artery disease) Cancer Brother Chronic kidney disease (CKD) Diabetes Sister Diabetes Other Heart disease Hypertension Denies family history of Dementia Suicide Anesthesia complication Lung disease Stroke Social History Smoking and tobacco/nicotine status: never used tobacco/nicotine Alcohol intake: never Substance/Drug Use: never Lives independently: Yes Household members: none Marital status: / Physical Exam Const: GENERAL APPEARANCE: cooperative ORIENTATION/CONSCIOUSNESS: Yes awake, Yes oriented to person, Yes oriented to place and Yes oriented to time HENMT: COMMON NORMALS: normocephalic, atraumatic and hearing grossly normal bilaterally HEAD & SCALP: normocephalic and atraumatic Resp: COMMON NORMALS: normal respiratory effort, No retractions, No use of accessory muscles and clear to auscultation bilaterally AUSCULTATION: clear to auscultation bilaterally Cardio: COMMON NORMALS: regular rate, regular rhythm and No murmurs present (Cardio) RATE: regular rate RHYTHM: regular rhythm GI: COMMON NORMALS: Soft to palpation and No hepatosplenomegaly present AUSCULTATION: Yes normoactive bowel sounds PALPATION: Yes Soft to palpation, No Tenderness to palpation present (GI), No Guarding due to palpation present (GI) and Yes No hepatosplenomegaly present Extremity: COMMON NORMALS: normal to inspection, capillary refill normal, no clubbing, cyanosis or edema, no calf tenderness and no pedal edema Neuro: SENSORIUM/ORIENTATION: Yes oriented to person, Yes oriented to place and Yes oriented to time Skin: COMMON NORMALS: no rashes or lesions noted GENERAL SKIN EXAM: no rashes or lesions noted Course Vital Signs: Vital signs: Vital Signs Temperature 98.3 F 05/16/25 08:32 Pulse Rate 73 05/16/25 14:30 Respiratory Rate 15 05/16/25 14:00 Blood Pressure 134/100 05/16/25 14:30 Pulse Oximetry 94 05/16/25 14:30 Oxygen Delivery Me thod Room Air 05/16/25 14:00 MDM - Chest Pain Medical Decision Making Patient has a heart score of [address] on observation discussed with hospitalist will heparinize hold Xarelto. Continue serial EKGs and troponins Medical Records I reviewed the patient's medical records. Lab Data I reviewed the patient's lab results. 05/16/25 09:14 05/16/25 09:14 Radiology Impressions Chest X-Ray 05/16/25 08:34 Impression: Cardiomegaly and atherosclerosis. Laboratory Results WBC 5.05 10^3/uL (3.29-11.43) 05/16/25 09:14 RBC 4.70 10^6/uL (3.85-5.65) 05/16/25 09:14 Hgb 12.70 g/dL (11.27-16.99) 05/16/25 09:14 Hct 37.8 % (36-47) 05/16/25 09:14 MCV 80.4 fl (85-98) L 05/16/25 09:14 MCH 27.0 pg (27-33) 05/16/25 09:14 MCHC 33.6 g/dL (30-55) 05/16/25 09:14 RDW 15.2 % (12.1-15.1) H 05/16/25 09:14 Plt Count 212 10^3/cmm (157-399) 05/16/25 09:14 MPV 9.6 fL (7.4-10.4) 05/16/25 09:14 Neut % (Auto) 57.3 % 05/16/25 09:14 Lymph % (Auto) 27.1 % 05/16/25 09:14 Butts % (Auto) 6.5 % 05/16/25 09:14 Eos % (Auto) 6.9 % 05/16/25 09:14 Baso % (Auto) 1.0 % 05/16/25 09:14 Neut # (Auto) 2.89 10^3/uL (1.8-7.7) 05/16/25 09:14 Lymph # (Auto) 1.4 10^3/uL (0.8-4.8) 05/16/25 09:14 Butts # (Auto) 0.3 10^3/uL (0.2-0.9) 05/16/25 09:14 Eos # (Auto) 0.4 10^3/uL (0.0-0.8) 05/16/25 09:14 Baso # (Auto) 0.1 10^3/uL (0.0-0.1) 05/16/25 09:14 Nucleated RBC % (auto) 0 % 05/16/25 09:14 Nucleated RBCs # 0.0 /100WBC 05/16/25 09:14 Sodium 142 mmol/L (136-145) 05/16/25 09:14 Potassium 3.8 mmol/L (3.5-5.1) 05/16/25 09:14 Chloride 105 mmol/L (98-107) 05/16/25 09:14 Carbon Dioxide 23 mmol/L (22-29) 05/16/25 09:14 Anion Gap 17.8 (5-19) 05/16/25 09:14 BUN 15 mg/dL (8-23) 05/16/25 09:14 Creatinine 0.6 mg/dL (0.5-0.9) 05/16/25 09:14 GFR Calculation Not Reportable 05/16/25 09:14 Glucose 212 mg/dL (65-115) H 05/16/25 09:14 Calculated Osmolality 301 mOsm/kg (285-295) H 05/16/25 09:14 Calcium 9.4 mg/dL (8.5-10.5) 05/16/25 09:14 Total Bilirubin 0.5 mg/dL (0.15-1.2) 05/16/25 09:14 AST 17 U/L (0-32) 05/16/25 09:14 ALT 11 U/L (0-33) 05/16/25 09:14 Alkaline Phosphatase 76 U/L (35-105) 05/16/25 09:14 Troponin T Baseline 20 ng/L (0-10) H 05/16/25 09:14 Total Protein 6.8 g/dL (6.6-8.7) 05/16/25 09:14 Albumin 4.4 g/dL (3.5-5.2) 05/16/25 09:14 Globulin 2.4 g/dL (1.3-4.6) 05/16/25 09:14 All radiology interpretation(s) finalized by discharge EKG Data EKG 1: Interpretation: EKG 05/16/2025 8:29 AM rate of 74 QTc 489 patient atrial fibrillation rate well-controlled no acute ST changes noted. Incomplete right bundle branch block no significant change from 08/04/2022 inverted T waves noted in precordial leads present in previous EKGs EKG 2: Interpretation: EKG 05/16/2025 10:11 AM sinus arrhythmia Incomplete right bundle branch block rate of 61 QTc 453. T wave inversion in the precordial leads unchanged from previous EKGs. Clincial Decision Support The following clinical decision support tools were used to aid in care of the patient HEART Score -> History: Highly Suspicious, EKG: Non-specific Changes, Age: 65 or more yrs, Risk Factors: >/=3 Risk Factors, Troponin: Baseline Trop 16-45 ng/L. Resulting HEART Score: 8. Discharge Plan Discharge Patient Disposition: Admitted As Inpatient Admit Provider: Basim Deras Clinical Impression: Unstable angina pectoris, Atrial fibrillation, History of coronary artery disease Condition: Stable Coding Level of Care Code ED Master Electrician for Manny Hines
[2025-05-16 09:21] LABS: Hematocrit 37.8 % (36-47); Hemoglobin 12.70 g/dL (11.27-16.99); Mean Corpuscular HGB Conc 33.6 g/dL (30-55); Mean Corpuscular Hemoglobin 27.0 pg (27-33); Mean Corpuscular Volume 80.4 fl (85-98); Nucleated Red Blood Cells % 0 %; Platelet Count 212 10^3/cmm (157-399); Red Blood Count 4.70 10^6/uL (3.85-5.65); White Blood Count 5.05 10^3/uL (3.29-11.43)
[2025-05-16 09:36] LABS: Troponin(5th) Baseline 20 ng/L (0-10)
[2025-05-16 09:50] LABS: Alanine Aminotransferase 11 U/L (0-33); Albumin Level 4.4 g/dL (3.5-5.2); Alkaline Phosphatase 76 U/L (35-105); Anion Gap 17.8 (5-19); Aspartate Amino Transferase 17 U/L (0-32); Blood Urea Nitrogen 15 mg/dL (8-23); Calcium 9.4 mg/dL (8.5-10.5); Carbon Dioxide 23 mmol/L (22-29); Chloride 105 mmol/L (98-107); Creatinine Clr Calc Pharmacy 47.0909; Globulin 2.4 g/dL (1.3-4.6); Glucose 212 mg/dL (65-115); Osmolality Calculated 301 mOsm/kg (285-295); Potassium 3.8 mmol/L (3.5-5.1); Sodium 142 mmol/L (136-145); Total Protein 6.8 g/dL (6.6-8.7)
--- NOTE | 2025-05-16 10:11 | ECG_ITS ---
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: : 1940 Requested By: Nando Oleary Order Number: [id number] Reading MD: MELANIE LEMON Measurements Intervals [place] Rate: 61 P: 0 HI: 0 QRS: -3 QRSD: 100 T: -60 QT: 449 QTc: 453 Interpretive Statements SINUS BRADYCARDIAON INCOMPLETE RIGHT BUNDLE BRANCH BLOCK [90+ ms QRS DURATION, TERMINAL R IN V1/V2, 40+ ms S IN I/aVL/V4/V5/V6] ST DEVIATION AND MODERATE T-WAVE ABNORMALITY, CONSIDER ANTEROLATERAL ISCHEMIA [-0.1+ mV T-WAVE IN V3-V6] Compared to ECG 05/16/2025 08:29:04 Indeterminate axis no longer present Myocardial infarct finding no longer present T-wave abnormality still present Possible ischemia still present Electronically Signed On 05-16-2025 10:52:46 CDT by MELANIE LEMON [id number]
[2025-05-16] MEDS: heparin 5,000 unit/mL INJ 1 mL IVP (10:23)
[2025-05-16] MEDS: heparin drip 25,000 UNIT/500 ML PREMIX 20 UNIT IV (10:24)
[2025-05-16 11:44] LABS: Troponin 5 2HR 19.42 ng/L (0-10)
[2025-05-16 11:56] LABS: Troponin 5 2HR Delta -0.58 ABS# (0-10)
--- NOTE | 2025-05-16 14:19 | PM.HP ---
Providers/Chief Complaint Admitting Physician: Basim Dreas Primary Care Provider: Marietta Gracia APN Chief Complaint: chest pain History of Present Illness Georgina Hunt is a 84 year old woman with history of heart failure with preserved ejection fraction (HFpEF), non-ischemic cardiomyopathy, hypertension, atrial fibrillation, hyperlipidemia, type 2 diabetes mellitus, fatty liver disease, prior non?ST-elevation myocardial infarction (NSTEMI), and history of colon cancer status post colon resection presented with chest discomfort that began this morning while at rest after lying back down. Described mainly as pressure, intermittently sharp, with radiation to the back. Took three sublingual nitroglycerin tablets at home; emergency medical services (EMS) administered two additional nitroglycerin doses and 1 inch nitroglycerin paste. By arrival, chest pain had improved. Reports high recent psychosocial stress (brother yesterday; sister recently diagnosed with widespread cancer). Denies fever, chills, sore throat, runny nose, sneezing, cough, nausea, vomiting, gastrointestinal or genitourinary bleeding. Notes minimal ankle swelling. Never smoker; no alcohol or illicit drug use. Monitors blood pressure at home intermittently. Prior testing: stress test September 2022 with normal myocardial perfusion; echocardiogram November (EF 60%) with grade 1 diastolic dysfunction and no regional wall motion abnormality. History of hip fracture on ; reports prior near-syncope episodes thought related to carvedilol, which was discontinued. Review of Systems Const: Reports: other (Recent stress); Denies: fever(s), chills, body aches or malaise ENMT: Denies: throat pain Card: Reports: chest pain and other (Chest heaviness); Denies: edema, pre-syncope or dyspnea on exertion Resp: Denies: dyspnea, productive cough, change in phlegm color or hemoptysis GI: Denies: abdominal pain, nausea, vomiting, diarrhea, constipation, hematochezia or melena : Denies: flank pain, urinary frequency or hematuria Musc: Denies: back pain, joint swelling or joint redness Skin/Breast: Denies: rash or new lesions Neuro: Denies: headache(s) or confusion Medications/Allergies Home Medications ?Medication ?Instructions ?Recorded ?Confirmed ?Last Taken ?Type aspirin 81 mg tablet,delayed 81 mg PO DAILY 09/06/19 05/16/2525 History release (Adult Low Dose Aspirin) nitroglycerin 0.4 mg sublingual 0.4 mg sublingual Q5M PRN Chest 09/06/19 05/16/25 05/16/25 06:00 History tablet (Nitrostat) Pain ergocalciferol (vitamin D2) 1,250 1,250 mcg PO Q7D 06/27/22 05/16/25 05/15/25 History mcg (50,000 unit) capsule fenofibrate 160 mg tablet 160 mg PO DAILY 06/27/22 05/16/25 05/15/25 History isosorbide mononitrate 60 mg 60 mg PO DAILY 06/27/22 05/16/25 05/15/25 History tablet,extended release 24 hr linagliptin 5 mg tablet (Tradjenta) 5 mg PO DAILY 06/27/22 05/16/25 05/15/25 History magnesium 200 mg tablet 200 mg PO DAILY 06/27/22 05/16/25 05/15/25 History rivaroxaban 20 mg tablet (Xarelto) See Rx Instructions .Route 11/26/23 05/16/25 05/15/25 Rx .COMPLEX #90 tabs rosuvastatin 10 mg tablet 10 mg PO DAILY 01/08/24 05/16/25 05/15/25 History omeprazole 40 mg capsule,delayed 40 mg PO DAILY PRN stomach acid 07/19/24 05/16/25 Unknown History release potassium chloride 10 mEq See Rx Instructions .Route .COMPLEX 07/19/24 05/16/25 05/15/25 History capsule,extended release glipizide 10 mg tablet, extended 10 mg PO DAILY 10/26/24 05/16/25 05/15/25 History release 24 hr amlodipine 2.5 mg tablet 2.5 mg PO DAILY 05/11/25 05/16/25 05/15/25 History furosemide 40 mg tablet 20 mg PO DAILY 05/16/25 05/16/25 05/15/25 History Allergies Allergy/AdvReac Type Severity Reaction Status Date / Time empagliflozin (From Allergy Mild ALGY-Rash Verified 05/11/25 10:03 Jardiance) Sulfa (Sulfonamide Allergy Unknown Verified 05/11/25 10:03 Antibiotics) Hcuxkcg-VQK-MfW Reductase AdvReac MYALGIAS Verified 05/11/25 10:03 Inhibitor (Rslwkxz-Szw-Xex Reductase Inhibitor) PFSH Acute PFSH: Medical History Dyslipidemia Chronic diastolic heart failure Congestive heart failure due to cardiomyopathy Benign essential HTN Nonischemic cardiomyopathy Unspecified abdominal hernia without obstruction or gangrene Fatty liver Hernia, paraesophageal Unsteady gait Leg cramp Stress-induced cardiomyopathy Cholelithiasis Cerebral atherosclerosis Anticoagulated Atrial fibrillation Mixed hyperlipidemia Hair loss Incarcerated hernia Post-menopausal Osteopenia of the elderly Non-ST elevation (NSTEMI) myocardial infarction Primary osteoarthritis of left knee Left medial knee pain Atherosclerotic heart disease of [place] coronary artery without angina pectoris Vitamin D deficiency Diabetes mellitus treated with oral medication Duodenal diverticulum Colon cancer Surgical History History of colon resection S/P endoscopy Family History Family/Other Bleeding disorder Clotting disorder Mother CAD (coronary artery disease) Cancer Brother Chronic kidney disease (CKD) Diabetes Sister Diabetes Other Heart disease Hypertension Denies family history of Dementia Suicide Anesthesia complication Lung disease Stroke Social History Smoking and tobacco/nicotine status: never used tobacco/nicotine Alcohol intake: never Substance/Drug Use: never Lives independently: Yes Household members: none Marital status: / Vitals/I&O/Wt Last Vital Signs Temp 98.3 F 05/16/25 08:32 Pulse 70 05/16/25 14:00 Resp 15 05/16/25 14:00 BP 120/91 05/16/25 14:00 Pulse Ox 95 05/16/25 14:00 O2 Del Method Room Air 05/16/25 14:00 Weight last 48 hrs Weight 70.76 kg Physical Exam Const: COMMON NORMALS: patient oriented x3 and alert GENERAL APPEARANCE: cooperative ORIENTATION/CONSCIOUSNESS: Yes awake HENMT: COMMON NORMALS: oropharynx normal Neck/C-Spine: COMMON NORMALS: no JVD Resp: COMMON NORMALS: normal respiratory effort and clear to auscultation bilaterally AUSCULTATION: clear to auscultation bilaterally Cardio: COMMON NORMALS: no JVD, regular rhythm, S1 normal heart sound present, S2 normal heart sound present and No murmurs present (Cardio) RHYTHM: regular rhythm HEART SOUNDS: S1 normal heart sound present and S2 normal heart sound present GI: COMMON NORMALS: Normal to inspection, nondistended, normoactive bowel sounds present, Soft to palpation and non-tender PALPATION: Yes Soft to palpation Extremity: COMMON NORMALS: no joint enlargement and no pedal edema (Trace) Neuro: COMMON NORMALS: patient oriented x3 and moves all extremities SENSORIUM/ORIENTATION: Yes alert Skin: COMMON NORMALS: no rashes or lesions noted GENERAL SKIN EXAM: no rashes or lesions noted Data 05/16/25 09:14 05/16/25 09:14 A&P Assessment and plan 1. Chest tightness: Presented with rest-onset chest pressure radiating to back; improved after nitroglycerin; prior normal stress test (Sep 2022) and echo (Nov, EF 60%). ED course included dose of aspirin, initiation of heparin drip. Reviewed vitals, CBC, CMP, troponin, EKG ECG on my interpretation with atrial fibrillation, incomplete RBBB, T wave depression in 1 aVL, 2, 3, aVF, V2, V3, V4 V5. Pending official read. Reviewed ED provider note, discussed with ED provider. Discussed with patient and family at bedside. - Administered aspirin 324 mg in the emergency department. Continue aspirin. - Started on heparin drip in the emergency department. Monitor for risk of bleeding. Transition to heparin drip for now from Xarelto pending additional assessment and consideration of need of coronary angiography/intervention. Monitor PTT. - Telemetry monitoring. - Serial troponins. Check CK. - Order limited transthoracic echocardiogram to assess current cardiac function. - Provide nitroglycerin as needed for recurrent chest discomfort. - If minimal/no recurrence of symptoms and no concerning findings, plan for a stress test potentially tomorrow. - If recurrence of chest pain or troponin elevation occurs, consider skipping stress test and proceed to angiography (cardiac catheterization). - Instruct patient to notify nursing staff immediately if chest pain recurs or worsens. Plan: Atrial fibrillation : Known history of atrial fibrillation. - Hold Xarelto (rivaroxaban) temporarily during evaluation in case invasive testing is needed. Heparin drip for now. Anticoagulation management : On home rivaroxaban for atrial fibrillation; transitioned to heparin infusion in ED for acute chest pain evaluation. - Continue heparin drip per hospital protocol during acute evaluation. - Hold home rivaroxaban temporarily. Type 2 diabetes mellitus : Known history; glucose noted elevated per ED labs (value discussed as 212). Monitor POC glucose. Sliding scale insulin. Hypertension : Known history; patient monitors BP intermittently at home. Monitor blood pressure, noted hypertension, resume amlodipine, Imdur. Cardiac diet. History of cardiomyopathy with recovered EF : Prior reduced EF (~40%) reportedly recovered to 60% (November). History of nonischemic cardiomyopathy without any significant stenosis on prior angiogram. - Repeat echocardiogram as above to reassess function. Follow-up : Ongoing inpatient monitoring and diagnostic planning discussed with patient and family. - Notify staff for any change in symptoms; overnight hospitalist coverage noted; primary team to reassess in the morning. - Code status discussed; patient agreeable to CPR if needed (Full code). PDMP PDMP Reviewed: Not Reviewed Attestations Medical Necessity Statement*: Place in observation for additional assessment and management of chest tightness in a lady with history of stress-induced cardiomyopathy in the past. and High MDM includes amount and/or complexity of data reviewed/ordered [ previous or external records, resulted lab(s)/test(s), ordered lab(s)/test(s), independent test interpretation and other healthcare professional discussion] and described risk of complication, morbidity or mortality of management as documented Diagnoses Chest tightness R07.89
--- NOTE | 2025-05-16 14:34 | ECG_ITS ---
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 Measurements Intervals [place] Rate: 65 P: 0 [place]: 0 QRS: 2 QRSD: 106 T: -32 QT: 455 QTc: 473 Interpretive Statements Normal Sinus Rhythm FIRST DEGREE AV BLOCK LOW QRS VOLTAGE IN EXTREMITY LEADS [QRS DEFLECTION < 0.5 mV IN LIMB LEADS] ST DEVIATION AND MODERATE T-WAVE ABNORMALITY, CONSIDER ANTEROLATERAL ISCHEMIA [-0.1+ mV T-WAVE IN V3-V6] Compared to ECG 05/16/2025 10:11:01 No significant change Electronically Signed On 05-18-2025 22:57:30 CDT by Robert Lechuga M.D. [email or web address] [id number]
[2025-05-16 15:16] LABS: Troponin 5 6HR 20.74 ng/L (0-10); Troponin 5 6HR Delta 0.74 ng/L (0-12)
--- NOTE | 2025-05-16 16:28 | USCV_ITS ---
Georgina Hunt Age: 84 Gender: F : 1940 Exam Date: 05/16/2025 18:45 Ordering Phys: Basim Deras MD Technologist: Felipe Dill Exam Location: [facility] [place] Indication: chest pain, stress, Hx stress-induced cardiomyopathy, Hx CAD BP: 134 / 100 HR: 88 Rhythm: Mostly atrial fibrillation with strings of sinus rhythm Technical Quality: Adequate MEASUREMENTS (Male / Female) Normal Values 2D ECHO LV Diastolic Diameter PLAX 4.2 cm 4.2 - 5.9 / 3.9 - 5.3 cm IVS Diastolic Thickness 1.7 cm 0.6 - 1.0 / 0.6 - 0.9 cm IVS Systolic Thickness 1.7 cm LVPW Diastolic Thickness 1.5 cm 0.6 - 1.0 / 0.6 - 0.9 cm LVOT Diameter 2.2 cm LV Ejection Fraction 2D Teich 67.8 % LV Ejection Fraction MOD 4C 65.3 % LV Ejection Fraction MOD 2C 75.5 % LV Ejection Fraction 2C AL 76.8 % LA Diameter 3.9 cm LA Sys Volume AL 55.1 cm cubed LA Sys Volume Index AL 31.1 cm cubed/m squared Aorta at Sinotubular Diameter 2.6 cm IVC Diameter 1.0 cm M-MODE LA Ao Ratio MM 1.2 AV Cusp Separation MM 1.6 cm DOPPLER AV Peak Velocity 125.0 cm/s LVOT Peak Velocity 68.0 cm/s AV Area Cont Eq vti 2.4 cm squared AV Area Cont Eq pk 2.1 cm squared MV Peak Velocity 75.3 cm/s MV Area PHT 6.3 cm squared Mitral E to A Ratio 0.0 TV Peak E Velocity 93.0 cm/s PV Peak Velocity 106.0 cm/s FINDINGS Left Ventricle Normal left ventricular size and systolic function, EF 60-65%. No regional wall motion abnormalities. Moderate left ventricular hypertrophy. Right Ventricle Normal right ventricular size and systolic function. Right Atrium Normal right atrial size. Left Atrium Normal left atrial size. Mitral Valve Structurally normal mitral valve. Trace mitral regurgitation Aortic Valve Aortic valve is thickened. 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 Moderate left ventricular hypertrophy. Trace mitral regurgitation. Trace pulmonic regurgitation Ascending aorta is dilated Chuck Choudhary MD (Electronically Signed) Final Date: 18 May 2025 10:01 S
--- NOTE | 2025-05-16 17:20 | ECG_ITS ---
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 Measurements Intervals [place] Rate: 70 P: -47 WI: 247 QRS: -18 QRSD: 102 T: -18 QT: 452 QTc: 489 Interpretive Statements SINUS RHYTHM WITH FIRST DEGREE AV BLOCK WITH OCCASIONAL SUPRAVENTRICULAR PREMATURE COMPLEXES POSSIBLE ANTERIOR AND INFERIOR MYOCARDIAL INFARCTIONS , OF INDETERMINATE AGE MODERATE T-WAVE ABNORMALITY, CONSIDER INFERIOR AND ANTEROLATERAL ISCHEMIA [-0.1+ mV T-WAVE IN I/aVL/V5/V6] Compared to ECG 05/16/2025 13:58:57 No significant change Electronically Signed On 05-18-2025 20:51:02 CDT by Robert Lechuga M.D. [id number] [id number]
[2025-05-16 18:37] LABS: Partial Thromboplastin Time 46.8 SECONDS (23.9-36.7)
[2025-05-16] MEDS: morphine 4 mg/mL SDV 1 mL 2 MG IVP (20:51)
[2025-05-17] VITALS (55 sets, daily range): BP systolic 101–152; BP diastolic 66–86; PULSE 61–99; RESP 6–25; TEMP 36.6–37.1; O2SAT 91–98
[2025-05-17 00:28] LABS: Partial Thromboplastin Time 61.3 SECONDS (23.9-36.7)
[2025-05-17 03:51] LABS: Hematocrit 38.6 % (36-47); Hemoglobin 12.80 g/dL (11.27-16.99); Mean Corpuscular HGB Conc 33.2 g/dL (30-55); Mean Corpuscular Hemoglobin 27.5 pg (27-33); Mean Corpuscular Volume 82.8 fl (85-98); Nucleated Red Blood Cells % 0 %; Platelet Count 236 10^3/cmm (157-399); Red Blood Count 4.66 10^6/uL (3.85-5.65); White Blood Count 6.05 10^3/uL (3.29-11.43)
[2025-05-17 04:15] LABS: Anion Gap 17.5 (5-19); Blood Urea Nitrogen 18 mg/dL (8-23); Calcium 9.2 mg/dL (8.5-10.5); Carbon Dioxide 24 mmol/L (22-29); Chloride 103 mmol/L (98-107); Creatinine Clr Calc Pharmacy 47.0909; Glucose 185 mg/dL (65-115); Osmolality Calculated 299 mOsm/kg (285-295); Potassium 3.5 mmol/L (3.5-5.1); Sodium 141 mmol/L (136-145)
--- NOTE | 2025-05-17 06:23 | XACV_ITS ---
Exam Room: [facility] Ht: 155 cm Wt: 71 kg BSA: 1.77 m2 Gender: Female : 1940 Any Known Allergies: Other Exam Priority: Routine Procedure(s): Procedure Description: Diagnostic procedure Procedure Description: Left Heart Catheterization Procedure Description: Left ventriculography Procedure Description: Miscellaneous Procedure Description: Angio-Seal Procedure Description: Coronary Angiography Diagnostic Cath Status: Urgent Diagnostic Findings * Left Main has no significant disease. * Circumflex has mild luminal irregularities. * Mid Left Anterior Descending: minimal 30% stenosis, VENKATA: 3 flow. * Mid Right Coronary Artery: mild 40% stenosis, VENKATA: 3 flow. * Coronary angiography shows right dominance. * We had access from right radial artery. JR4 diagnostic catheter had a knot secondary to brachial artery tortuosity. Peripheral snare was used from femoral artery access to snare it and bring it down to the descending aorta. With rotation of the catheter from radial artery access as distal edge was snared, we were able to undo the knot and remove the catheter. RCA was then engaged from femoral artery access. 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 Conclusions 1. Nonobstructive coronary artery disease. 2. Normal left ventricular systolic function. Ejection fraction of 55%. Recommendations * Aggressive risk factor modification. Symptoms secondary to coronary vasospasms. Will start on amlodipine. * Outpatient cardiology follow-up in 2 weeks. Interventional RX Recommendation: medical therapy and/or counseling Diagnostic RX Recommendation: medical therapy and/or counseling Anticoagulation: Heparin Ventriculography Ejection Fraction: 55.0 % Pressures Phase:Rest AO : 165 / 69 ( 114 ) @ 10:30:00 AM 163 / 73 ( 111 ) @ 10:30:00 AM 157 / 77 ( 106 ) @ 10:30:00 AM LV : 159 / -15 / 5 @ 10:29:00 AM 161 / -18 / 5 @ 10:30:00 AM 161 / -17 / 4 @ 10:30:00 AM Valves Phase:DefaultPhase AV : 0.0 @ 9:41:59 AM AV Mean Gradient: 0.0 @ 9:41:59 AM Clinical Evaluation EBL: 5mL-10mL Procedural Details Procedure Consent Obtained. Pre-Procedure Time Out. Identified patient by full name and date of as verbalized by the patient/guarantor. Does the consent match the physician's order: Yes. Accurate & Complete Informed Consent: Yes. Inpatient/Outpatient History & Physical on Chart: Yes. If H&P is completed, is and addenduem needed: No; If yes, is the addendum complete: N/A. Visualize and Verify Site with Patient/Guarantor: N/A. Relevant Radiology Images available: Yes. The risks, benefits, and alternatives of sedation and/or procedure were discussed by physician. The patient agrees to continue. Procedure started. The patient arrived to the cardiac cath lab technologist from 1st floor, and was placed on the cardiac cath lab technologist table in the supine position. Placed on cardiac/pulse monitors. [facility] Clinical Fraility Score: 5: Mildly Frail. 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 Chest Pain Symptom Assessment: Typical Angina Symptoms. Cardiovascular Instability: No. Correct patient, site and procedure confirmed by cath team. Current diagnosis: Unstable angina. PERRLA. Strong, equal hand hub lead bilaterally. Lungs clear x 5 lobes. IV Site on Arrival: 20 gauge in the right hand. IV Site on Arrival: 20 gauge in the left anticubital. IV Fluids: D5/.45% NaCl at KVO. 0 mL infused prior to cardiac cath lab technologist. Pre Procedural Pulses: bilateral radial was 2+. Oxygen started at 2liters/min via nasal canula. right groin was prepped with chloroprep then draped in the usual sterile fashion. right radial was prepped with chloroprep then draped in the usual sterile fashion. Physician notified. Baseline sample Acquired. HR: 64 BPM. Patient's family in the cardiac cath lab technologist waiting room. Dr. Helm will update at the compeltion of the procedure. Equipment: 6F - Radial. Cardiac Cath Pack. ACIST Manifold Kit Model BT 2000. Heparinized Saline (2 units/mL), 1000 mL bag. Physician arrived. Physician scrubbed in. Immediate Pre-Procedure Time Out. Correct Patient: Yes; Correct Procedure: Yes; Correct Site: Yes; Correct Patient Position: Yes; Correct Supplies: Yes; Dried Flammable Prep: Yes; Blood Products Available: N/A. Lidocaine 1% infiltrated to the right radial. Arterial access obtained. A 5 marshallese TIG catheter in over the echange J wire. Multiple views taken of left coronary artery. Catheter redirected to the RCA. Catheter removed over the exchange J wire. A 5 marshallese JR4 catheter in over the exchange J wire. Exchange J wire out, 0.035 x 260cm stiff angled glidewire in. Glidewire out, 0.014 x 190cm Command guidewrie in. Command wire out, a new Stiff angled glidewire in. Glidewire out. Lidocaine 1% infiltrated to the right groin. Arterial access obtained with micropuncture set. A 5 marshallese JR4 catheter in over the exchange J wire through the right femoral. Glidwire in. Glidwire out. 4fr Multicurve glidecath in through the JR 4 catheter in the right femoral. Glidewire in. Glidecath out. Medtronic Amplatz Goose Neck Snare in over the glidewire. Glidewire out. Glidewire in through the JR4 catheter in the right radial. Glidewire out and then placed back in. Catheter removed over the glide wire in the right radial. Snare out. ACT drawn. Results 208 seconds. Therapeutic limits - pre-heparin administration 90-150 seconds and monitoring heparin during a vascular procedure >250 seconds. A 5 marshallese JR4 catheter in over the exchange J wire in the right femoral. A TR Band was successful obtaining hemostatsis at the Right Radial artery insertion site. Multiple views taken of right coronary artery. Catheter removed over the exchange J wire. A 5 marshallese Angled Pig catheter in over the exchange J wire. EDP Sample taken: LV 159/-16,5; HR: 65 BPM; SpO2: 96%. LV gram performed in LUN[place]ERG @ 10 mL/second for a total of 30 mL. EDP Sample taken: LV 161/-19,5; HR: 70 BPM; SpO2: 95%. Pullback taken: LV 161/-18,4; AO 165/69(114); Mean: 0mmHg, Peak to Peak: 0mmHg, SEP: 6sec/min; HR: 71 BPM; SpO2: 97%. Catheter removed over the exchange J wire. A Right femoral angiogram was performed to determine safe placement of closure device. Lidocaine 1% infiltrated to the right groin. A Angio-Seal VIP ([facility]) was successful obtaining hemostatsis at the Right Femoral artery insertion site. Angioseal placed without complications. No signs or symptoms of hematoma noted. Sterile dressing applied per usual sterile fashion. Lot # [id number]. Exp. . Post Procedure: Pulses reassessed and unchanged. PERRLA. Strong, equal hand hub lead bilaterally. No VTE prophylaxis required. Medication's Wasted: Nitro = 49.8 mg. Medication's Wasted: Heparin = 500 units mL. Medication's Wasted: Other = Fentanyl 25 mcg. Total IV fluids: 65 mL. Post-op diagnosis: non-obstructive CAD. Complications: none. Estimated blood loss: 5mL-10mL. Responsiveness - Normal response to verbal stimuli; alert and oriented, PERRLA. Airway - Unaffected, no intervention required; spontaneous ventilation. Circulation: W/N/L, pulses unchanged. Nausea/Vomiting: No. Vital chart was stopped. Procedure completed. Patient transferred by bed to 1st floor. Access Site Site: Right Radial artery Sheath Size: 6 Fr Hemostasis Method: TR Band Hemostasis Success: Successful Site: Right Femoral artery Sheath Size: 6 Fr Hemostasis Method: Angio-Seal VIP ([facility]) Hemostasis Success: Successful Procedure Medications Start: 8:12 AM Stop: 8:12 AM Medication: Versed Amount: 1 mg Route: I.V. Start: 8:12 AM Stop: 8:12 AM Medication: Fentanyl Amount: 25 mcg Route: I.V. Start: 8:19 AM Stop: 8:19 AM Medication: Nitrogylcerin Amount: 200 mcg Route: I.A. Start: 8:22 AM Stop: 8:22 AM Medication: Heparin Amount: 2500 units Route: I.V. Start: 8:48 AM Stop: 8:48 AM Medication: Heparin Amount: 2000 units Route: I.V. Start: 9:00 AM Stop: 9:00 AM Medication: Fentanyl Amount: 25 mcg Route: I.V. Start: 9:09 AM Stop: 9:09 AM Medication: Heparin Amount: 1000 units Route: I.V. Start: 9:33 AM Stop: 9:33 AM Medication: Fentanyl Amount: 25 mcg Route: I.V. Start: 8:25 AM Stop: 8:25 AM Medication: Versed Amount: 1 mg Route: I.V. I, the attending physician, have reviewed and verified all procedure medications. Yes, all medications given per verbal order History/Risk Factors Hypertension: Yes Dyslipidemia: Yes Peripheral Arterial Disease (PAD): No Myocardial Infarction (MD): Yes Obesity: No Renal Disease: No Tobacco Use: Never Prior Interventions PCI: No CABG: No Valve Surgery: No Report Signatures Finalized by Chuck Choudhary MD on 05/30/2025 09:04 AM
[2025-05-17 07:53] LABS: Partial Thromboplastin Time 57.7 SECONDS (23.9-36.7)
--- NOTE | 2025-05-17 08:08 | PM.CONSULT ---
Providers/Reason For Consult Consulting Physician/Specialty*: Chuck Choudhary MD/ Cardiology Reason for Consult*: Chest pain Requesting Physician: Dr Deras Attending Physician: Basim Deras Primary Care Provider: Marietta Gracia APN History of Present Illness History of Present Illness Georgina Hunt is a 84 year old female with PMH of HFpEF, hypertension, who has presented with chest pain symptoms. Has taken multiple nitros. Mild elevation of troponins without significant uptrend. EKG shows ST depression in anterolateral leads. Review of Systems Card: Reports: chest pain Medications/Allergies Home Medications ?Medication ?Instructions ?Recorded ?Confirmed ?Last Taken ?Type aspirin 81 mg tablet,delayed 81 mg PO DAILY 09/06/19 05/16/25 05/15/25 History release (Adult Low Dose Aspirin) nitroglycerin 0.4 mg sublingual 0.4 mg sublingual Q5M PRN Chest 09/06/19 05/16/25 05/16/25 06:00 History tablet (Nitrostat) Pain ergocalciferol (vitamin D2) 1,250 1,250 mcg PO Q7D 06/27/22 05/16/25 05/15/25 History mcg (50,000 unit) capsule fenofibrate 160 mg tablet 160 mg PO DAILY 06/27/22 05/16/25 05/15/25 History isosorbide mononitrate 60 mg 60 mg PO DAILY 06/27/22 05/16/25 05/15/25 History tablet,extended release 24 hr linagliptin 5 mg tablet (Tradjenta) 5 mg PO DAILY 06/27/22 05/16/25 05/15/25 History magnesium 200 mg tablet 200 mg PO DAILY 06/27/22 05/16/25 05/15/25 History rivaroxaban 20 mg tablet (Xarelto) See Rx Instructions .Route 11/26/23 05/16/25 05/15/25 Rx .COMPLEX #90 tabs rosuvastatin 10 mg tablet 10 mg PO DAILY 01/08/24 05/16/25 05/15/25 History omeprazole 40 mg capsule,delayed 40 mg PO DAILY PRN stomach acid 07/19/24 05/16/25 Unknown History release potassium chloride 10 mEq See Rx Instructions .Route .COMPLEX 07/19/24 05/16/25 05/15/25 History capsule,extended release glipizide 10 mg tablet, extended 10 mg PO DAILY 10/26/24 05/16/25 05/15/25 History release 24 hr furosemide 40 mg tablet 20 mg PO DAILY 05/16/25 05/16/25 05/15/25 History amlodipine 2.5 mg tablet 5 mg (2 x 2.5 mg) PO DAILY #30 tabs 05/18/25 05/16/25 05/15/25 Rx Allergies Allergy/AdvReac Type Severity Reaction Status Date / Time empagliflozin (From Allergy Mild ALGY-Rash Verified 05/11/25 10:03 Jardiance) Sulfa (Sulfonamide Allergy Unknown Verified 05/11/25 10:03 Antibiotics) Lyqpztm-FEM-AgO Reductase AdvReac MYALGIAS Verified 05/11/25 10:03 Inhibitor (Lcdxdup-Dqt-Dwy Reductase Inhibitor) Current Medications Generic Name Dose Route Start Last Admin Trade Name Freq PRN Reason Stop Dose Admin Aspirin 81 mg 05/17/25 09:00 05/17/25 07:47 Aspirin 81 Mg Ec Tablet PO Not Given DAILY [facility] Heparin Sodium/Sodium Chloride 25,000 unit in 500 mls @ 0 mls/hr 05/16/25 10:15 05/17/25 01:17 Heparin Drip IV 14.84 unit/kg/hr CONT CHRISTINE 21 mls/hr Protocol Titration Per Protocol Insulin Human Lispro 0 unit 05/16/25 18:00 05/17/25 07:46 Insulin Lispro 100 Unit/1 Ml SUBCUT Not Given WM&BEDTIME CHRISTINE Protocol Morphine Sulfate 2 mg 05/16/25 16:35 05/16/25 20:51 Morphine 4 Mg/Ml Sdv 1 Ml IVP 2 mg Q4H PRN Administration SEVERE PAIN PFSH Acute PFSH: Medical History (Updated 05/16/25 @ 16:35 by Basim Deras MD) Dyslipidemia Chronic diastolic heart failure Congestive heart failure due to cardiomyopathy Benign essential HTN Nonischemic cardiomyopathy Unspecified abdominal hernia without obstruction or gangrene Fatty liver Hernia, paraesophageal Unsteady gait Leg cramp Stress-induced cardiomyopathy Cholelithiasis Cerebral atherosclerosis Anticoagulated Atrial fibrillation Mixed hyperlipidemia Hair loss Incarcerated hernia Post-menopausal Osteopenia of the elderly Non-ST elevation (NSTEMI) myocardial infarction Primary osteoarthritis of left knee Left medial knee pain Atherosclerotic heart disease of havasupai coronary artery without angina pectoris Vitamin D deficiency Diabetes mellitus treated with oral medication Duodenal diverticulum Colon cancer Surgical History History of colon resection S/P endoscopy Family History Family/Other Bleeding disorder Clotting disorder Mother CAD (coronary artery disease) Cancer Brother Chronic kidney disease (CKD) Diabetes Sister Diabetes Other Heart disease Hypertension Denies family history of Dementia Suicide Anesthesia complication Lung disease Stroke Social History Smoking and tobacco/nicotine status: never used tobacco/nicotine Alcohol intake: never Substance/Drug Use: never Lives independently: Yes Household members: none Marital status: / Vitals/I&O/Wt Last Vital Signs Temp 97.9 F 05/17/25 07:49 Pulse 66 05/17/25 07:49 Resp 17 05/17/25 07:49 BP 152/72 05/17/25 07:49 Pulse Ox 94 05/17/25 07:49 O2 Del Method Nasal Cannula 05/17/25 03:29 O2 Flow Rate 2 05/16/25 23:29 05/16/25 05/17/25 05/17/25 22:59 06:59 14:59 Intake Total 525.333 / 525.333 138.95 / 664.283 Balance 525.333 / 525.333 138.95 / 664.283 Weight last 48 hrs Weight 156 lb Weight 156 lb Weight 156 lb Physical Exam Const: COMMON NORMALS: no acute distress and patient oriented x3 Resp: COMMON NORMALS: clear to auscultation bilaterally AUSCULTATION: clear to auscultation bilaterally Cardio: COMMON NORMALS: regular rate, S1 normal heart sound present and S2 normal heart sound present RATE: regular rate HEART SOUNDS: S1 normal heart sound present and S2 normal heart sound present Extremity: GENERAL: No edema Neuro: COMMON NORMALS: patient oriented x3 Data 05/18/25 03:27 05/18/25 03:27 A&P Assessment and plan 1. Unstable angina pectoris: 2. Atrial fibrillation: 3. Benign essential HTN: Plan: Patient's presentation is consistent with unstable angina. We will proceed with coronary angiogram with possible PCI. Order echocardiogram Keep holding xarelto. NPO Thank you for involving us with care of this patient. Please call with questions PDMP PDMP Reviewed: Not Reviewed Coding Level of Care Code Acute Code for Chg Fwd Diagnoses Unstable angina pectoris I20.0 Atrial fibrillation I48.91 Benign essential HTN I10
--- NOTE | 2025-05-17 08:13 | W.PM.OPSUD ---
Surgery/Procedure H&P Update DATE OF PROCEDURE: May 17, 2025 DATE H&P PERFORMED: 05/17/25 H&P UPDATE INFORMATION: I have reviewed H&P completed within last 30 days, I have examined patient prior to procedure and No changes to prior documentation PREOP DIAGNOSIS: Unstable angina PRIMARY INDICATION FOR PROCEDURE: Unstable angina PLANNED PROCEDURE: Left heart cath with possible percutaneous coronary intervention PATIENT REASSESSED PRIOR TO SEDATION, WITH NO CHANGE NOTED: Yes PHYSICAL EXAM: alert, oriented x 3, clear to auscultation bilaterally and regular rate & rhythm AIRWAY EVAL/ANESTHESIA PLAN: normal airway, ASA III, Local Anesthesia, Risks, benefits & alternatives of sedation and/or procedure discussed and Patient agrees to continue as planned ADDITIONAL INFORMATION: Moderate sedation
--- NOTE | 2025-05-17 10:12 | PM.PROC ---
Procedure Note: Date of procedure: 05/17/25 Pre-procedure diagnosis: Unstable angina Post-procedure diagnosis: other (Patent coronary arteries) Procedure: Non-obstructive coronary artery disease. LV EF normal Medical therapy Performing Provider: Chuck Choudhary Condition: stable Disposition: floor Coding Level of Care Code Acute Code for [facility] Fwd
[2025-05-17] MEDS: morphine 4 mg/mL SDV 1 mL 2 MG IVP (11:55)
--- NOTE | 2025-05-17 15:56 | P.PN_ITS ---
Subjective 2 Subjective: Doing well post angiogram, but subsequently still with recurrence of chest tightness per discussion with her RN, subsequently did ambulate. Vitals/I&O/Wt Last Vital Signs Temp 97.9 F 05/17/25 11:59 Pulse 95 05/17/25 14:30 Resp 19 H 05/17/25 14:30 BP 120/66 05/17/25 14:30 Pulse Ox 95 05/17/25 14:15 O2 Del Method Nasal Cannula 05/17/25 03:29 O2 Flow Rate 2 05/16/25 23:29 05/17/25 05/17/25 05/17/25 06:59 14:59 22:59 Intake Total 138.95 / 664.283 675.717 / 675.717 Balance 138.95 / 664.283 675.717 / 675.717 Weight last 48 hrs Weight 70.76 kg Weight 70.76 kg Weight 70.76 kg Physical Exam 2 Narrative: Accompanied by her daughter Const: COMMON NORMALS: patient oriented x3 and alert GENERAL APPEARANCE: c ooperative ORIENTATION/CONSCIOUSNESS: Yes awake HENMT: COMMON NORMALS: oropharynx normal Neck/C-Spine: COMMON NORMALS: no JVD Resp: COMMON NORMALS: normal respiratory effort and clear to auscultation bilaterally AUSCULTATION: clear to auscultation bilaterally Cardio: COMMON NORMALS: no JVD, regular rhythm, S1 normal heart sound present, S2 normal heart sound present and No murmurs present (Cardio) RHYTHM: regular rhythm HEART SOUNDS: S1 normal heart sound present and S2 normal heart sound present GI: COMMON NORMALS: Normal to inspection, nondistended, normoactive bowel sounds present, Soft to palpation and non-tender PALPATION: Yes Soft to palpation Extremity: COMMON NORMALS: no joint enlargement and no pedal edema (Trace) NARRATIVE EXTREMITY EXAM: TR band right wrist. No bleeding or bruising at the site. Neuro: COMMON NORMALS: patient oriented x3 and moves all extremities S ENSORIUM/ORIENTATION: Yes alert Skin: COMMON NORMALS: no rashes or lesions noted GENERAL SKIN EXAM: no rashes or lesions noted Data 05/17/25 03:03 05/17/25 03:03 A&P Assessment and plan 1. Chest tightness: Status post coronary angiogram. Discussed with cardiology provider. Nonobstructive coronaries. Discussed with her and her daughter. She was doing well, minimal residual symptoms, but with recurrence of chest discomfort/tightness again during the day. Frequently did ambulate. As per discussion with her we will go ahead and obtain further evaluation with chest CT, will assess with CTA pulmonary protocol, will keep for optimization of medications, resume amlodipine. Per discussion with cardiology consider up titration if blood pressures allow. Continue Imdur. Discussed with them alternative possibility of vasospasm, possibly microvascular heart disease. Reviewed vitals, CBC, PTT, BMP, CK, troponin series, EKG. Presented with rest-onset chest pressure radiating to back; improved after nitroglycerin; prior normal stress test (Sep 2022) and echo (Nov, EF 60%). Discussed with patient and family at bedside. - Continue aspirin. - Started on heparin drip in the emergency department. Monitor for risk of bleeding. Continue heparin drip for now, transition to Xarelto at discharge. Monitor PTT. - Telemetry monitoring. - Serial troponins. Reviewed CK. Not elevated. - Order limited transthoracic echocardiogram to assess current cardiac function. Pending read. - Provide nitroglycerin as needed for recurrent chest discomfort. - If minimal/no recurrence of symptoms and no concerning findings, plan for a stress test potentially tomorrow. - Instructed patient to notify nursing staff immediately if chest pain recurs or worsens. Plan: Atrial fibrillation : Known history of atrial fibrillation. - Hold Xarelto (rivaroxaban) temporarily during evaluation in case invasive testing is needed. Heparin drip for now. Anticoagulation management : On home rivaroxaban for atrial fibrillation; transitioned to heparin infusion in ED for acute chest pain evaluation. - Continue heparin drip per hospital protocol during acute evaluation. - Hold home rivaroxaban temporarily. Type 2 diabetes mellitus : Known history; glucose noted elevated per ED labs (value discussed as 212). Monitor POC glucose. Sliding scale insulin. Hypertension : Known history; patient monitors BP intermittently at home. Monitor blood pressure, noted hypertension, resume amlodipine, Imdur. Cardiac diet. History of cardiomyopathy with recovered EF : Prior reduced EF (~40%) reportedly recovered to 60% (November). History of nonischemic cardiomyopathy without any significant stenosis on prior angiogram. - Repeat echocardiogram as above to reassess function. Follow-up : Ongoing inpatient monitoring and diagnostic planning discussed with patient and family. - Notify staff for any change in symptoms; overnight hospitalist coverage noted; primary team to reassess in the morning. - Code status discussed; patient agreeable to CPR if needed (Full code). PDMP PDMP Reviewed: Not Reviewed Attestations 2 Medical Necessity Statement*: With recurrent chest tightness hospitalization for further evaluation and medical optimization is needed. and High MDM includes amount and/or complexity of data reviewed/ordered [ resulted lab(s)/test(s) and other healthcare professional discussion] and described risk of complication, morbidity or mortality of management as documented Diagnoses Chest tightness R07.89
[2025-05-17] MEDS: alum-mag-hydroxide-sime 30 mL UDC PO (22:58)
[2025-05-18 00:25] VITALS: BP 123/79; PULSE 81; RESP 31; O2SAT 93
--- NOTE | 2025-05-18 00:59 | ECG_ITS ---
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 Measurements Intervals [place] Rate: 78 P: 0 MT: 200 QRS: -1 QRSD: 94 T: 0 QT: 412 QTc: 472 Interpretive Statements Normal Sinus Rhythm ST DEVIATION AND MODERATE T-WAVE ABNORMALITY, CONSIDER ANTEROLATERAL ISCHEMIA [-0.1+ mV T-WAVE IN V3-V6] Compared to ECG 05/16/2025 17:20:51 First degree AV block no longer present Myocardial infarct finding no longer present T-wave abnormality still present Possible ischemia still present Electronically Signed On 05-18-2025 21:16:49 CDT by Robert Lechuga M.D. [email or web address]
[2025-05-18 01:00] VITALS: PULSE 78
--- NOTE | 2025-05-18 02:14 | PC.NURSE ---
Patient has been having rhythm changes. Per telemetry she is going from NSR with what looks like a second degree type 2 block to AF. Patient does have history of AF. EKG obtained and Dr. wolfe notified. HR has stayed in the 80's and BP is 128/81. Received order to add mg and phos labs with this AM lab draws.
[2025-05-18 03:44] LABS: Hematocrit 35.1 % (36-47); Hemoglobin 11.50 g/dL (11.27-16.99); Mean Corpuscular HGB Conc 32.8 g/dL (30-55); Mean Corpuscular Hemoglobin 26.6 pg (27-33); Mean Corpuscular Volume 81.1 fl (85-98); Nucleated Red Blood Cells % 0 %; Platelet Count 224 10^3/cmm (157-399); Red Blood Count 4.33 10^6/uL (3.85-5.65); White Blood Count 7.24 10^3/uL (3.29-11.43)
[2025-05-18 03:55] VITALS: BP 135/85; PULSE 88; RESP 17; TEMP 36.8; O2SAT 97
[2025-05-18 04:11] LABS: Anion Gap 14.3 (5-19); Blood Urea Nitrogen 25 mg/dL (8-23); Calcium 9.3 mg/dL (8.5-10.5); Carbon Dioxide 27 mmol/L (22-29); Chloride 100 mmol/L (98-107); Creatinine Clr Calc Pharmacy 46.2513; Glucose 157 mg/dL (65-115); Osmolality Calculated 294 mOsm/kg (285-295); Potassium 3.3 mmol/L (3.5-5.1); Sodium 138 mmol/L (136-145)
[2025-05-18 04:12] LABS: Magnesium 2.3 mg/dL (1.7-2.3)
[2025-05-18] MEDS: iohexol 350 mg/mL 500 mL Btl (per mL) IV (06:22)
[2025-05-18 07:40] VITALS: BP 120/66; PULSE 71; RESP 20; TEMP 36.3; O2SAT 92
--- NOTE | 2025-05-18 08:00 | CTR_ITS ---
PROCEDURE INFORMATION: Exam: CTA Chest With Contrast Exam date and time: 05/18/2025 6:13 AM Age: 84 years old Clinical indication: Pain; Chest pressure; Prior surgery; Surgery date: Post-operative (0-2 days); Surgery type: Cath yesterday; Additional info: Recurrent chest discomfort, non-obstructed coronaries TECHNIQUE: Imaging protocol: Computed tomographic angiography of the chest with contrast. Exam focused on the arteries. 3D rendering (Not supervised by radiologist): MIP and/or 3D reconstructed images were created by the technologist. Radiation optimization: All CT scans at this facility use at least one of these dose optimization techniques: automated exposure control; mA and/or kV adjustment per patient size (includes targeted exams where dose is matched to clinical indication); or iterative reconstruction. Contrast material: OMNI 350; Contrast volume: 100 ml; Contrast route: INTRAVENOUS (IV); COMPARISON: CR XR chest 1V portable [id number] 05/16/2025 8:36 AM RADIATION DOSE METRICS: Total DLP (mGy-cm): 347.8 FINDINGS: Pulmonary arteries: Normal. No pulmonary emboli. Aorta: Unremarkable. No aortic aneurysm. No aortic dissection. Lungs: Unremarkable. No consolidation. No masses. Pleural spaces: Unremarkable. No pneumothorax. No pleural effusion. Heart: Cardiomegaly. Coronary arteries: Coronary artery calcifications. Lymph nodes: Unremarkable. No enlarged lymph nodes. Diaphragm: Large hiatal hernia. Gallbladder and biliary ducts: Cholelithiasis, incompletely imaged. Bones/joints: Unremarkable. No acute fracture. Soft tissues: Unremarkable. CT/CT angio chest PE protcl [id number] IMPRESSION: No acute intrathoracic pathology.
--- NOTE | 2025-05-18 08:07 | P.DS_ITS ---
Discharge Providers Date of Admission: 05/16/25 10:44 Date of Discharge: May 18, 2025 Attending Provider at Admission: Basim Deras Attending Provider at Discharge: Basim Deras Primary Care Provider: Marietta Gracia APN Diagnoses at Discharge Discharge Diagnosis 1. Chest tightness: Reason for Visit Reason for Visit: chest pain Brief History: Georgina Hunt is a 84 year old woman with history of heart failure with preserved ejection fraction (HFpEF), non-ischemic cardiomyopathy, hypertension, atrial fibrillation, hyperlipidemia, type 2 diabetes mellitus, fatty liver disease, prior non?ST-elevation myocardial infarction (NSTEMI), and history of colon cancer status post colon resection presented with chest discomfort that began this morning while at rest after lying back down. Described mainly as pressure, intermittently sharp, with radiation to the back. Took three sublingual nitroglycerin tablets at home; emergency medical services (EMS) administered two additional nitroglycerin doses and 1 inch nitroglycerin paste. By arrival, chest pain had improved. Reports high recent psychosocial stress (brother yesterday; sister recently diagnosed with widespread cancer). Denies fever, chills, sore throat, runny nose, sneezing, cough, nausea, vomiting, gastrointestinal or genitourinary bleeding. Notes minimal ankle swelling. Never smoker; no alcohol or illicit drug use. Monitors blood pressure at home intermittently. Prior testing: stress test September 2022 with normal m yocardial perfusion; echocardiogram November (EF 60%) with grade 1 diastolic dysfunction and no regional wall motion abnormality. History of hip fracture on ; reports prior near-syncope episodes thought related to carvedilol, which was discontinued. Hospital Course Hospital Course She was admitted for serial assessment and management of recurrent chest tightness, possible unstable angina, CK was checked and not elevated. Echocardiogram was obtained, she was seen by cardiology. She underwent additional assessment by coronary angiography for possible unstable angina, although no significant coronary lesions were found. With consideration of possible Prinzmetal angina she was resumed on calcium channel jeniffer with amlodipine 2.5 mg uptitrated to 5 mg, continued on Imdur with instructions for continued blood pressure monitoring and orthostatic precautions. Microvascular heart disease considered as possible alternative cause. Due to persistent/recurrent symptoms she was further assessed with CT angiogram chest without finding of PE or other abnormality. Oxygenation on the low side, 92% on room air, in case of recurrent symptoms, consider referral for pulmonary function testing. Prior cardiomyopathy noted improved on echocardiogram. She has been under stress recently which may be exacerbating her symptoms. She has been feeling better today, and able to ambulate without issues. She knows to seek medical attention in case of worsening or new concerning symptoms. Physical Exam Narrative: Accompanied by her daughter. Const: COMMON NORMALS: patient oriented x3 and alert GENERAL APPEARANCE: cooperative ORIENTATION/CONSCIOUSNESS: Yes awake HENMT: COMMON NORMALS: oropharynx normal Neck/C-Spine: COMMON NORMALS: no JVD Resp: COMMON NORMALS: normal respiratory effort and clear to auscultation bilaterally AUSCULTATION: clear to auscultation bilaterally Cardio: COMMON NORMALS: no JVD, regular rhythm, S1 normal heart sound present, S2 normal heart sound present and No murmurs present (Cardio) RHYTHM: regular rhythm HEART SOUNDS: S1 normal heart sound present and S2 normal heart sound present GI: COMMON NORMALS: Normal to inspection, nondistended, normoactive bowel sounds present, Soft to palpation and non-tender PALPATION: Yes Soft to palpation Extremity: COMMON NORMALS: no joint enlargement and no pedal edema (Trace) NARRATIVE EXTREMITY EXAM: No bleeding or bruising at the access site. Neuro: COMMON NORMALS: patient oriented x3 and moves all extremities SENSORIUM/ORIENTATION: Yes alert Skin: COMMON NORMALS: no rashes or lesions noted GENERAL SKIN EXAM: no rashes or lesions noted Discharge Data Studies Completed and Pending Completed Studies During Hospitalization Category Date Time Status CT angio chest PE protcl [id number] Routine Cat Scan 05/18/25 08:00 Completed XR chest 1V portable [id number] Stat Exams 05/16/25 08:34 Completed Pending at discharge Category Date Time Status CUMULATIVE EFFECTS ANALYST request for service Routine Exams 05/17/25 06:23 Taken Sestamibi Stress Test Request Routine Exams 05/17/25 08:00 Stop Req Basic Metabolic Panel AM LABS Lab 05/19/25 04:00 Ordered Complete Blood Count w/Auto AM LABS Lab 05/19/25 04:00 Ordered Miscellaneous Test Routine Lab 05/16/25 09:14 Received CV. echo limited [id number] Routine Ultrasound 05/16/25 16:28 Taken Radiology Impressions Chest X-Ray 05/16/25 08:34 Impression: Cardiomegaly and atherosclerosis. Chest CTA 05/18/25 08:00 IMPRESSION: No acute intrathoracic pathology. Laboratory Results WBC 7.24 10^3/uL (3.29-11.43) 05/18/25 03:27 RBC 4.33 10^6/uL (3.85-5.65) 05/18/25 03:27 Hgb 11.50 g/dL (11.27-16.99) 05/18/25 03:27 Hct 35.1 % (36-47) L 05/18/25 03:27 MCV 81.1 fl (85-98) L 05/18/25 03:27 MCH 26.6 pg (27-33) L 05/18/25 03:27 MCHC 32.8 g/dL (30-55) 05/18/25 03:27 RDW 15.1 % (12.1-15.1) 05/18/25 03:27 Plt Count 224 10^3/cmm (157-399) 05/18/25 03:27 MPV 10.0 fL (7.4-10.4) 05/18/25 03:27 Neut % (Auto) 66.8 % 05/18/25 03:27 Lymph % (Auto) 21.3 % 05/18/25 03:27 Craven % (Auto) 7.7 % 05/18/25 03:27 Eos % (Auto) 3.2 % 05/18/25 03:27 Baso % (Auto) 0.6 % 05/18/25 03:27 Neut # (Auto) 4.84 10^3/uL (1.8-7.7) 05/18/25 03:27 Lymph # (Auto) 1.5 10^3/uL (0.8-4.8) 05/18/25 03:27 Craven # (Auto) 0.6 10^3/uL (0.2-0.9) 05/18/25 03:27 Eos # (Auto) 0.2 10^3/uL (0.0-0.8) 05/18/25 03:27 Baso # (Auto) 0.0 10^3/uL (0.0-0.1) 05/18/25 03:27 Nucleated RBC % (auto) 0 % 05/18/25 03:27 Nucleated RBCs # 0.0 /100WBC 05/18/25 03:27 APTT 57.7 SECONDS (23.9-36.7) H 05/17/25 07:15 Sodium 138 mmol/L (136-145) 05/18/25 03:27 Potassium 3.3 mmol/L (3.5-5.1) L 05/18/25 03:27 Chloride 100 mmol/L (98-107) 05/18/25 03:27 Carbon Dioxide 27 mmol/L (22-29) 05/18/25 03:27 Anion Gap 14.3 (5-19) 05/18/25 03:27 BUN 25 mg/dL (8-23) H 05/18/25 03:27 Creatinine 0.8 mg/dL (0.5-0.9) 05/18/25 03:27 GFR Calculation Not Reportable 05/18/25 03:27 Glucose 157 mg/dL (65-115) H 05/18/25 03:27 POC Glucose 161 mg/dL (70-110) H 05/18/25 06:30 Calculated Osmolality 294 mOsm/kg (285-295) 05/18/25 03:27 Calcium 9.3 mg/dL (8.5-10.5) 05/18/25 03:27 Phosphorus 3.6 mg/dL (2.5-4.5) 05/18/25 03:27 Magnesium 2.3 mg/dL (1.7-2.3) 05/18/25 03:27 Total Bilirubin 0.5 mg/dL (0.15-1.2) 05/16/25 09:14 AST 17 U/L (0-32) 05/16/25 09:14 ALT 11 U/L (0-33) 05/16/25 09:14 Alkaline Phosphatase 76 U/L (35-105) 05/16/25 09:14 Creatine Kinase 150 U/L (26-192) 05/16/25 17:30 Troponin T Baseline 20 ng/L (0-10) H 05/16/25 09:14 Troponin T 120 Minute 19.42 ng/L (0-10) H 05/16/25 11:08 Delta Troponin T -0.58 ABS# (0-10) L 05/16/25 11:08 Troponin T Hi Sens 6Hr 20.74 ng/L (0-10) H 05/16/25 14:32 Troponin T Hi Sens 6Hr Delta 0.74 ng/L (0-12) 05/16/25 14:32 Total Protein 6.8 g/dL (6.6-8.7) 05/16/25 09:14 Albumin 4.4 g/dL (3.5-5.2) 05/16/25 09:14 Globulin 2.4 g/dL (1.3-4.6) 05/16/25 09:14 Vitals Last Vital Signs Temp 97.4 F L 05/18/25 07:40 Pulse 71 05/18/25 07:40 Resp 20 H 05/18/25 07:40 BP 120/66 05/18/25 07:40 Pulse Ox 92 05/18/25 07:40 O2 Del Method Room Air 05/18/25 07:40 O2 Flow Rate 2 05/16/25 23:29 Discharge Plan Discharge Patient Disposition: Home Condition: Stable Prescriptions: Continued nitroglycerin [Nitrostat] 0.4 mg tablet, sublingual 0.4 mg SUBLINGUAL Q5M PRN (Reason: Chest Pain) aspirin [Adult Low Dose Aspirin] 81 mg tablet,delayed release (DR/EC) 81 mg PO DAILY rosuvastatin 10 mg tablet 10 mg PO DAILY potassium chloride 10 mEq capsule, extended release See Rx Instructions .ROUTE .COMPLEX Dose Instruction: TAKE 2 CAPSULES DAILY ON FRIDAY, FRIDAY AND FRIDAY THEN TAKE 1 CAPSULE DAILY ALL OTHER DAYS OF THE WEEK Rx Instructions: TAKE 1 cap daily glipizide 10 mg tablet extended release 24hr 10 mg PO DAILY Xarelto 20 mg tablet See Rx Instructions .ROUTE .COMPLEX Qty: 90 3RF Dose Instruction: TAKE 1 TABLET EVERY DAY Rx Instructions: TAKE 1 TABLET EVERY DAY magnesium 200 mg Tablet 200 mg PO DAILY isosorbide mononitrate 60 mg tablet extended release 24 hr 60 mg PO DAILY ergocalciferol (vitamin D2) 1,250 mcg (50,000 unit) capsule 1,250 mcg PO Q7D fenofibrate 160 mg tablet 160 mg PO DAILY Tradjenta 5 mg tablet 5 mg PO DAILY omeprazole 40 mg capsule,delayed release(DR/EC) 40 mg PO DAILY PRN (Reason: stomach acid) furosemide 40 mg tablet 20 mg PO DAILY Rx Instructions: increases to whole tbalet if weight increases Changed amlodipine 2.5 mg tablet 5 mg PO DAILY Qty: 30 0RF Discharge Order = DC NOW: Discharge Order (Routine); Ordered 05/18/25 Ordered By: Basim Deras Referrals: Robert Lechuga MD [Physician, Cardiology] - 05/23/25 10:45 am Gracia,JOSE Mcmanus [Primary Care Provider, Nurse Practitioner] - 05/26/25 10:20 am Discharge Diet: Diabetic Discharge Activity: Increase activity as tolerated and Limit activity as instructed Patient Instructions: Chest Pain Stoplight, Opioid Safety, Post Angiogram Home Care Instructions, Patient Portal & Shanae Instructions Activity Restrictions/Additional Instructions: Cautiously increase amlodipine dose to 5 mg, check blood pressure 3 times daily, rise slowly from laying to sitting sitting to standing. Amlodipine can sometimes decrease your blood pressure when you are standing up. In case of feeling lightheaded check your blood pressure laying down sitting and standing and if there he is more than 20 mmHg points decrease from laying or sitting to standing, resume previous dose of 2.5 mg. Maintain fall precautions. Follow-up with cardiology for reassessment. Seek medical attention in case of any worsening or new concerning symptoms. Follow-up with your primary provider for reassessment of intermittent chest tightness, possibly due to vasospasm versus possibly microvascular heart disease. In case of additional symptoms consider additional follow-up for pulmonary function testing. Discharge Attestations Time Spent in Discharge Care*: greater than 30 min Quality Metrics Clinical Quality Measures [ No reported AMI, CVA or VTE this stay] Coding Level of Care Code 20198 Total time (in minutes) for Discharge: 35 Diagnoses Chest tightness R07.89
--- NOTE | 2025-05-18 09:43 | P.PN_ITS ---
<Statement entered by Chuck Choudhary M.D - 05/19/25 12:01> Patient was cared for in conjunction with an advanced practice practitioner.? I reviewed the chart and all pertinent data including imaging, telemetry, and laboratory results.? I discussed the patient in detail with the advanced practice practitioner.? Please see their note for complete progress note, testing results and agreed upon plan of care for the patient. Subjective 2 Subjective: She has done well overnight, had some indigestion relieved by medication. She underwent CTA of the chest, negative for PE. Large hiatal hernia was noted. No complications with right radial/right femoral cath sites. She has been ambulating without difficulty. Vitals/I&O/Wt Last Vital Signs Temp 97.4 F L 05/18/25 07:40 Pulse 71 05/18/25 07:40 Resp 20 H 05/18/25 07:40 BP 120/66 05/18/25 07:40 Pulse Ox 92 05/18/25 07:40 O2 Del Method Room Air 05/18/25 07:40 O2 Flow Rate 2 05/16/25 23:29 05/17/25 05/18/25 05/18/25 22:59 06:59 14:59 Intake Total 360 / 1275.717 240 / 1275.717 240 / 240 Output Total 0 / 0 0 / 0 Balance 360 / 1275.717 240 / 1275.717 240 / 240 Weight last 48 hrs Weight 150 lb 6.4 oz Weight 156 lb Weight 156 lb Physical Exam 2 Const: COMMON NORMALS: no acute distress and patient oriented x3 GENERAL APPEARANCE: cooperative ORIENTATION/CONSCIOUSNESS: Yes awake, Yes oriented to person, Yes oriented to place and Yes oriented to time Chest: COMMONS NORMALS: normal inspection of the chest and normal palpation of entire chest wall CHEST: Yes Symmetrical chest wall rise Resp: COMMON NORMALS: normal respiratory effort, No retractions, No use of accessory muscles and clear to auscultation bilaterally AUSCULTATION: clear to auscultation bilaterally Cardio: COMMON NORMALS: regular rate, regular rhythm, S1 normal heart sound present, S2 normal heart sound present, No gallops present (Cardio), No clicks present (Cardio), No murmurs present (Cardio) and No rub (Cardio) RATE: r egular rate RHYTHM: regular rhythm HEART SOUNDS: S1 normal heart sound present and S2 normal heart sound present PERIPHERAL PULSES: radial pulses present positive right 2+ and femoral pulses present positive right 2+ Neuro: COMMON NORMALS: patient oriented x3 and moves all extremities S ENSORIUM/ORIENTATION: Yes oriented to person, Yes oriented to place and Yes oriented to time Skin: WOUNDS: Yes surgical site (no hematoma palpable) Details: no odor Data 05/18/25 03:27 05/18/25 03:27 A&P Assessment and plan 1. Non-ischemic cardiomyopathy: 2. Dyslipidemia: 3. Chronic diastolic heart failure: 4. Benign essential HTN: 5. Atrial fibrillation: Plan: Coronary angiogram yesterday showed nonobstructive CAD with normal LVEF. She appears euvolemic today, blood pressure well-controlled, no bruising or bleeding at the cath sites. Will plan to discharge home today. Continue amlodipine, Imdur, Xarelto, aspirin, rosuvastatin. She can follow-up in the cardiology clinic in 2 weeks. PDMP PDMP Reviewed: Not Reviewed Attestations 2 Medical Necessity Statement*: DC today Coding Level of Care Code Acute Code for g Fwd Diagnoses Non-ischemic cardiomyopathy I42.8 Dyslipidemia E78.5 Chronic diastolic heart failure I50.32 Benign essential HTN I10 Atrial fibrillation I48.91
[2025-05-18 11:16] VITALS: BP 120/66; PULSE 71; RESP 18; TEMP 37; O2SAT 96
== END 2025-05-18 11:21 | disposition home or self-care (01) ==
LOC: ER 10:25 → ER IP 10:45 → CSU 15:30
PROVIDERS: Internal Medicine; Admitting Provider Internal Medicine; Emergency Provider Family Medicine; PCP Nurse Practitioner Family; Visit Provider Internal Medicine
DX: I25.119 Atherosclerotic heart disease of native coronary artery with unspecified angina pectoris (principal); E78.5 Hyperlipidemia, unspecified; I25.2 Old myocardial infarction; K21.9 Gastro-esophageal reflux disease without esophagitis; Z79.01 Long term (current) use of anticoagulants; Z79.82 Long term (current) use of aspirin; I48.91 Unspecified atrial fibrillation; E11.9 Type 2 diabetes mellitus without complications; Z85.038 Personal history of other malignant neoplasm of large intestine; I50.30 Unspecified diastolic (congestive) heart failure; I11.0 Hypertensive heart disease with heart failure; Z82.49 Family history of ischemic heart disease and other diseases of the circulatory system
CPT/HCPCS: 36415; 36416; 71045; 71275; 80048; 80053; 82550; 82962; 83735; 84100; 84484; 85025; 85347; 85730; 86606; 93005; 93308; 93458; 96365; 96366; 96372; 96375; 99152; 99153; 99285; C1760; C1769; C1773; C1887; C1894; G0269; G0378; J1644; J1815; J2250; J2270; J3010; J3490; J7030; J9999; Q9967

== ENCOUNTER → 2025-05-23 10:14 | Outpatient (BNVA) | payer MEDICARE, OTHER, SELFPAY | PROVIDERS: PCP Nurse Practitioner Family; Visit Provider Internal Medicine Cardiovascular Disease | DX: Z09 Encounter for follow-up examination after completed treatment for conditions other than malignant neoplasm (principal); I11.0 Hypertensive heart disease with heart failure; I50.32 Chronic diastolic (congestive) heart failure; R07.9 Chest pain, unspecified; I48.91 Unspecified atrial fibrillation; Z79.01 Long term (current) use of anticoagulants; Z79.82 Long term (current) use of aspirin; E78.2 Mixed hyperlipidemia; I25.2 Old myocardial infarction | CPT/HCPCS: 99214 ==